=== PATIENT | male | born 1965 | race Caucasian/White ===

== ENCOUNTER 2016-12-08 14:05 | Inpatient (IN) | payer BC ==
[2016-12-08 16:08] VITALS: BMI 25.1
--- NOTE | 2016-12-08 17:05 | HP ---
CIWA Score - CIWA Score Nausea/Vomitin Muscle Tremors: 3 Anxiety: 3 Agitation: 3 Paroxysmal Sweats: 2 Orientation: 0-Oriented Tacttile Disturbances: 2-Mild Itch/Numbness/Burn Auditory Disturbances: 2-Mild Harshness/Frighten Visual Disturbances: 2-Mild Sensitivity Headache: 2-Mild CIWA-Ar Total Score: 22 Admission ROS [facility] - HPI Chief Complaint: I NEED HELP TO STOP DRINKING ALCOHOL,COCAINE,HEROIN DEPENDENCE,MMTP 70 MGS/DAY, LAST MEDICATED TODAY,LAST TREATMENT 10/24 [facility], [place] ALCOHOL RELATED COPD PSORIASIS ARTHRITIS OF BACK ANXIETY,DEPRESSION,INSOMNIA LONGEST PERIOD OF SOBRIETY ONE AND A HALF YEAR Allergies/Adverse Reactions: Allergies Allergy/AdvReac Type Severity Reaction Status Date / Time No Known Allergies Allergy Verified 12/08/16 16:50 History of Present Illness: THIS 51 YEARS OLD MALE WITH ALCOHOL,XANAX DEPENDENCE,HEROIN DEPENDENCE,MMTP 70 MG/DAY FOR DETOX METIONED ABOVE,LAST TREATMENT IN 10/24 [facility] MENTIONED ABOVE - Ebola screening Have you traveled outside of the country in the last 21 days: No Have you had contact with anyone from an Ebola affected area: No Have you been sick,other than usual withdrawal symptoms: No Do you have a fever: No - Review of Systems Constitutional: Chills, Loss of Appetite, Malaise, Night Sweats, Changes in sleep, Weakness, Unintentional Wgt. Loss EENT: reports: Tearing, Nose Congestion Respiratory: reports: Other (COPD) Cardiac: reports: Palpitations GI: reports: Diarrhea, Nausea, Vomiting, Abdominal cramping : reports: No Symptoms Reported Musculoskeletal: reports: Back Pain, Muscle Pain Integumentary: reports: Dryness Neuro: reports: Headache, Tremors Endocrine: reports: No Symptoms Reported Hematology: reports: No Symptoms Reported Psychiatric: reports: Judgement Intact, Mood/Affect Appropiate, Orientated x3 ( INSOMNIA), Anxious, Depressed Patient History - Patient Medical History Hx Anemia: No Hx Asthma: No Hx Chronic Obstructive Pulmonary Disease (COPD): Yes (ON ALBUTEROL INHALER AND SYMBICORT) Hx Cancer: No Hx Cardiac Disorders: No Hx Congestive Heart Failure: No Hx Hypertension: No Hx Hypercholesterolemia: No Hx Pacemaker: No HX Cerebrovascular Accident: No Hx Seizures: No Hx Dementia: No Hx Diabetes: No Hx Gastrointestinal Disorders: No Hx Liver Disease: No Hx Genitourinary Disorders: No Hx Sexually Transmitted Disorders: No Hx Renal Disease (ESRD): No Hx Thyroid Disease: No Hx Human Immunodeficiency Virus (HIV): No (LAST 2016) Hx Hepatitis C: No Hx Depression: Yes (ANXIETY,INSOMNIA) Hx Suicide Attempt: No Hx Bipolar Disorder: No Hx Schizophrenia: No Other Medical History: NO SUICIDAL,NO HOMICIDAL - Patient Surgical History Past Surgical History: No - PPD History Previous Implant?: Yes Documented Results: Positive w/o proof Implanted On Prior [facility] Admission?: No PPD to be Administered?: No - Smoking Cessation Smoking history: Current every day smoker Have you smoked in the past 12 months: Yes Aproximately how many cigarettes per day: 20 Hx Chewing Tobacco Use: No Initiated information on smoking cessation: Yes 'Breaking Loose' booklet given: 12/08/16 - Substance & Tx. History Hx Alcohol Use: Yes Hx Substance Use: Yes Substance Use Type: Alcohol, Heroin, Tranquilizers Hx Substance Use Treatment: Yes (10/24 [facility]) - Substances Abused Alcohol Route: Oral Frequency: Daily Amount used: 1-2 PINTS GAGE 5-6 24 OZ BEERS Age of first use: 15 Date of Last Use: 12/08/16 Alprazolam (Xanax) Route: Oral Frequency: Daily Amount used: 2-4MG Age of first use: 21 Date of Last Use: 12/06/16 Heroin Route: Injection Frequency: 3-6 times per week Amount used: 7-8 BAGS Age of first use: 21 Date of Last Use: 12/07/16 Family Disease History - Family Disease History Family History: Denies Admission Physical Exam [facility] - Vital Signs Vital Signs: Vital Signs - 24 hr 12/08/16 16:05 Temperature 97.8 F Pulse Rate 86 Respiratory 16 Rate Blood Pressure 125/71 - Physical General Appearance: Yes: Moderate Distress, Tremorous, Irritable, Sweating, Anxious HEENTM: Yes: Hearing grossly Normal, Normal ENT Inspection, Normocephalic, [place] , Pharynx Normal Respiratory: Yes: Lungs Clear, Normal Breath Sounds, No Respiratory Distress Neck: Yes: Within Normal Limits, Supple, Trachea in good position Breast: Yes: Within Normal Limits Cardiology: Yes: Within Normal Limits, Regular Rhythm, Regular Rate, S1, S2 Abdominal: Yes: Within Normal Limits, Normal Bowel Sounds, Non Tender, Flat, Soft Genitourinary: Yes: Within Normal Limits Back: Yes: Within Normal Limits, Muscle Spasm Musculoskeletal: Yes: full range of Motion, Back pain, Muscle Pain Extremities: Yes: Within Normal Limits, Normal Range of Motion, Tremors Neurological: Yes: radio communications mechanician II-XII NML intact, Fully Oriented, Alert, Motor Strength 5/5 Integumentary: Yes: Dry Lymphatic: Yes: Within Normal Limits - Diagnostic (1) Alcohol dependence with uncomplicated withdrawal Current Visit: Yes Status: Acute (2) Uncomplicated sedative, hypnotic or anxiolytic withdrawal Current Visit: Yes Status: Acute (3) Opioid dependence Current Visit: Yes Status: Acute (4) Methadone maintenance therapy patient Current Visit: Yes Status: Acute (5) Syncope Current Visit: Yes Status: Acute (6) Anxiety and depression Current Visit: Yes Status: Acute (7) COPD (chronic obstructive pulmonary disease) Current Visit: Yes Status: Acute (8) Psoriasis Current Visit: Yes Status: Acute (9) Weight loss Current Visit: Yes Status: Acute (10) Insomnia Current Visit: Yes Status: Acute Cleared for Admission [facility] - Detox or Rehab [facility] Level of Care: Medically Managed Detox Regimen/Protocol: Valium [facility] Breath Alcohol Content Breath Alcohol Content: 0 Urine Drug Screen - Results Drug Screen Negative: No Urine Drug Screen Results: OPI-Opiates, MET-Methamphetamine, BZO-Benzodiazepines , MTD-Methadone
[2016-12-08] MEDS ORDERED: ACETAMINOPHEN 325 MG TABLET (FP) PO PRN (17:19)
[2016-12-08] MEDS ORDERED: IBUPROFEN 400 MG TABLET (FP) PO PRN (17:19)
[2016-12-08] MEDS ORDERED: guaiFENesin/D-METHORPHAN HB 10 ML UNIT-DOSE CUPS PO PRN (17:19)
[2016-12-08] MEDS ORDERED: LOPERAMIDE HCL 2 MG CAPSULE PO PRN (17:19)
[2016-12-08] MEDS ORDERED: MAGNESIUM HYDROX 2400MG/30ML ORAL SUSPENSION 30 ML CUP PO PRN (17:19)
[2016-12-08] MEDS ORDERED: diphenhydrAMINE HCL 50 MG CAPSULE PO PRN (17:19)
[2016-12-08] MEDS ORDERED: MAG HYDROX/AL HYDROX/SIMETH 30 ML UNIT-DOSE CUP PO PRN (17:19)
[2016-12-08] MEDS ORDERED: diazePAM 5 MG TABLET PO ONE (17:19)
[2016-12-08] MEDS ORDERED: MAGNESIUM CITRATE 300 ML BOTTLE PO PRN (17:19)
[2016-12-08] MEDS ORDERED: P-EPHED 60MG/TRIPROLIDI 2.5MG TABLET PO PRN (17:19)
[2016-12-08] MEDS ORDERED: hydrOXYzine PAMOATE 25 MG CAPSULE (FP) PO PRN (17:19)
[2016-12-08] MEDS ORDERED: MENTHOL/PHENOL 1 EACH UD MM PRN (17:19)
[2016-12-08] MEDS ORDERED: ALBUTEROL SO4 6.7 GM HFA INHALER IH PRN (17:23)
[2016-12-08] MEDS: NICOTINE 21 MG/24 HOURS TOPICAL PATCH TD SCH (18:45)
[2016-12-08] MEDS: BUDESONIDE/FORMETEROL FUMARATE 80/4.5 mcg INHALER IH SCH (22:44)
[2016-12-08] MEDS: THIAMINE HCL 100 MG TABLET (FP) PO SCH (22:44)
[2016-12-08] MEDS: diazePAM 5 MG TABLET PO SCH (22:45)
[2016-12-08] MEDS: FLUOCINONIDE 0.05% CREAM (15 GM TUBE) TP SCH (22:45)
[2016-12-09] MEDS: diazePAM 5 MG TABLET PO SCH ×3 (05:40→22:39)
[2016-12-09] MEDS ORDERED: METHADONE HCL 10 MG TABLET PO ONE (08:43)
[2016-12-09] MEDS ORDERED: METHADONE 40 MG, METHADONE 30 MG PO ONE (09:00)
[2016-12-09] MEDS ORDERED: METHADONE HCL 10 MG TABLET ONE (09:08)
[2016-12-09] MEDS ORDERED: METHADONE HCL 40 MG DISPERSABLE TABLET ONE (09:09)
[2016-12-09] MEDS: diazePAM 5 MG TABLET PO PRN ×2 (09:12→16:54)
[2016-12-09] MEDS: BUDESONIDE/FORMETEROL FUMARATE 80/4.5 mcg INHALER IH SCH ×2 (09:12→22:38)
[2016-12-09] MEDS: PRENATAL VITAMINS W/ FOLIC ACID TABLET (FP) PO SCH (09:12)
--- NOTE | 2016-12-09 09:33 | CONSULT ---
[facility] Psychiatric Consult - Data Date of interview: 12/09/16 Admission source: [facility] Identifying data: First admission to [facility] [place] for this 51 y/o male seeking detox treament on for heroin,xanax,cocaine and alcohol dependence.Patient is single without children,homeless,unemployed and reportedly deprived of any form of financial support. Substance Abuse History: Discussed in detail with the patient in this interview.Mr Dan continues to endorse the findings included in this section of [facility] report : Smoking Cessation. Smoking history: Current every day smoker. Have you smoked in the past 12 months: Yes. Aproximately how many cigarettes per day: 20. Hx Chewing Tobacco Use: No. Initiated information on smoking cessation: Yes. 'Breaking Loose' booklet given: 12/08/16. - Substance & Tx. History. Hx Alcohol Use: Yes. Hx Substance Use: Yes. Substance Use Type: Alcohol, Heroin, Tranquilizers. Hx Substance Use Treatment: Yes (10/24 [facility]). - Substances Abused. Alcohol. Route: Oral. Frequency : Daily. Amount used: 1-2 PINTS GAGE 5-6 24 OZ BEERS. Age of first use: 15. Date of Last Use: 12/08/16. Alprazolam (Xanax). Route: Oral. Frequency: Daily. Amount used: 2-4MG. Age of first use: 21. Date of Last Use: 12/06/16. Heroin. Route: Injection. Frequency: 3-6 times per week. Amount used: 7- 8 BAGS. Age of first use: 21. Date of Last Use: 12/07/16 Medical History: Consistent with COPD,psoriasis and arthritis. Psychiatric History: Patient denies.Mr Dan is currently on methadone maintenance (70 mg/day). Physical/Sexual Abuse/Trauma History: Patient denies. Additional Comment: Urine Drug Screen Results: OPI-Opiates, MET-Methamphetamine , BZO-Benzodiazepines, MTD-Methadone.Noted. Mental Status Exam - Mental Status Exam Alert and Oriented to: Time, Place, Person Cognitive Function: Good Patient Appearance: Unkempt, Disheveled Mood: Hopeful, Euthymic Affect: Appropriate, Normal Range Patient Behavior: Fatigued, Appropriate (friendly), Cooperative Speech Pattern: Clear Voice Loudness: Normal Thought Process: Intact, Goal Oriented Thought Disorder: Not Present Hallucinations: Denies Suicidal Ideation: Denies Homicidal Ideation: Denies Insight/Judgement: Poor Sleep: Poorly, Difficulty falling asleep (requests ambien) Appetite: Good Muscle strength/Tone: Normal Gait/Station: Normal Psychiatric Findings - Problem List ([place] 1, 2,3) (1) Alcohol dependence with uncomplicated withdrawal Current Visit: Yes Status: Acute (2) Uncomplicated sedative, hypnotic or anxiolytic withdrawal Current Visit: Yes Status: Acute (3) Opioid dependence on agonist therapy Current Visit: Yes Status: Acute (4) Nicotine dependence Current Visit: Yes Status: Acute (5) COPD (chronic obstructive pulmonary disease) Current Visit: Yes Status: Chronic (6) Psoriasis Current Visit: Yes Status: Chronic (7) Insomnia Current Visit: Yes Status: Acute - Initial Treatment Plan Initial Treatment Plan: Psychoeducation.Detoxification.Ambien 10 mg po hs.Patient is informed of potential for parasomnias.He agrees with careplan.Observation.
[2016-12-09] MEDS: NICOTINE 21 MG/24 HOURS TOPICAL PATCH TD SCH (10:01)
[2016-12-09 10:34] LABS: MCH 29.2 pg (25.7-33.7); MEAN CELL VOLUME 88.4 fl (80-96); MEAN PLT VOLUME 8.1 fl (7.5-11.1); PLATELET COUNT 162 K/MM3 (134-434); RDW 14.8 % (11.9-15.9); WHITE BLOOD COUNT 5.7 K/mm3 (4.0-10.0)
[2016-12-09] MEDS: FLUOCINONIDE 0.05% CREAM (15 GM TUBE) TP SCH ×2 (10:58→22:39)
--- NOTE | 2016-12-09 11:42 | PN ---
[facility] CIWA - CIWA Score Nausea/Vomitin-No Nausea/No Vomiting Muscle Tremors: 4-Moderate,w/Arms Extend Anxiety: 4-Mod. Anxious/Guarded Agitation: 4-Moderately Restless Paroxysmal Sweats: 1-Minimal Palms Moist Orientation: 0-Oriented Tacttile Disturbances: 3-Moderate Itch/Numb/Burn Auditory Disturbances: 0-None Visual Disturbances: 0-None Headache: 0-None Present CIWA-Ar Total Score: 16 BHS Progress Note (SOAP) Subjective: ANXIETY,SWEATS,TREMORS,INTERMITTENT SLEEP. Objective: 12/09/16 11:41 Vital Signs Temperature 98.0 F 12/09/16 10:14 Pulse Rate 79 12/09/16 10:14 Respiratory Rate 18 12/09/16 10:14 Blood Pressure 114/77 12/09/16 10:14 O2 Sat by Pulse Oximetry (%) Laboratory Last Values WBC 5.7 K/mm3 (4.0-10.0) 12/09/16 06:30 RBC 4.48 M/mm3 (4.00-5.60) 12/09/16 06:30 Hgb 13.1 GM/dL (11.7-16.9) 12/09/16 06:30 Hct 39.6 % (35.4-49) 12/09/16 06:30 MCV 88.4 fl (80-96) 12/09/16 06:30 MCH 29.2 pg (25.7-33.7) 12/09/16 06:30 MCHC 33.0 g/dl (32.0-35.9) 12/09/16 06:30 RDW 14.8 % (11.9-15.9) 12/09/16 06:30 Plt Count 162 K/MM3 (134-434) 12/09/16 06:30 MPV 8.1 fl (7.5-11.1) 12/09/16 06:30 OTHER LABS PENDING Assessment: 12/09/16 11:41 WITHDRAWAL SX Plan: CONTINUE DETOX
[2016-12-09 12:18] LABS: ALBUMIN 3.3 g/dl (3.4-5.0); ALK PHOS 111 U/L (45-117); ANION GAP 10 (8-16); BILIRUBIN,TOTAL 0.5 mg/dL (0.2-1.0); CALCIUM 8.7 mg/dL (8.5-10.1); CO2 28 mmol/L (21-32); CREATININE 0.6 mg/dL (0.7-1.3); GLUCOSE,RANDOM 93 mg/dL (74-106); SGOT/AST 41 U/L (15-37); SGPT/ALT 42 U/L (12-78); TOT PROT 6.4 g/dl (6.4-8.2)
--- NOTE | 2016-12-09 14:18 | EKG ---
Test Reason : Blood Pressure : / mmHG Vent. Rate : 077 BPM Atrial Rate : 077 BPM P-R Int : 150 ms QRS Dur : 100 ms QT Int : 396 ms P-R-T Axes : 069 077 073 degrees QTc Int : 448 ms NORMAL SINUS RHYTHM T WAVE INVERSION IN aVL NO PREVIOUS ECGS AVAILABLE REPEAT EKG IF CLINICALLY INDICATED Confirmed by KELLEY GEE MD ([id number]) on 12/09/2016 2:18:20 PM Referred By: Bernabe Jeronimo Confirmed By:KELLEY GEE MD
[2016-12-09] MEDS: THIAMINE HCL 100 MG TABLET (FP) PO SCH (22:38)
[2016-12-10] MEDS ORDERED: METHADONE HCL 10 MG TABLET ONE (05:46)
[2016-12-10] MEDS ORDERED: METHADONE HCL 40 MG DISPERSABLE TABLET ONE (05:46)
[2016-12-10] MEDS ORDERED: METHADONE HCL 10 MG TABLET PO SCH (06:00)
[2016-12-10] MEDS: diazePAM 5 MG TABLET PO PRN ×3 (06:04→17:09)
[2016-12-10] MEDS: METHADONE 40 MG, METHADONE 30 MG PO SCH (06:04)
[2016-12-10] MEDS: BUDESONIDE/FORMETEROL FUMARATE 80/4.5 mcg INHALER IH SCH ×2 (09:26→22:27)
[2016-12-10] MEDS: FLUOCINONIDE 0.05% CREAM (15 GM TUBE) TP SCH ×2 (09:27→22:27)
[2016-12-10] MEDS: NICOTINE 21 MG/24 HOURS TOPICAL PATCH TD SCH (09:27)
[2016-12-10] MEDS: PRENATAL VITAMINS W/ FOLIC ACID TABLET (FP) PO SCH (09:27)
[2016-12-10] MEDS: diazePAM 5 MG TABLET PO SCH ×2 (09:27→22:27)
--- NOTE | 2016-12-10 11:47 | PN ---
[facility] CIWA - CIWA Score Nausea/Vomitin-No Nausea/No Vomiting Muscle Tremors: 4-Moderate,w/Arms Extend Anxiety: 4-Mod. Anxious/Guarded Agitation: 4-Moderately Restless Paroxysmal Sweats: 1-Minimal Palms Moist Orientation: 0-Oriented Tacttile Disturbances: 3-Moderate Itch/Numb/Burn Auditory Disturbances: 0-None Visual Disturbances: 0-None Headache: 0-None Present CIWA-Ar Total Score: 16 S Progress Note (SOAP) Subjective: ANXIETY,SWEATS,TREMORS. ALERT O X 3. MUCH IMPROVED TODAY. Objective: 12/10/16 11:46 Vital Signs Temperature 98.4 F 12/10/16 09:27 Pulse Rate 83 12/10/16 09:27 Respiratory Rate 18 12/10/16 09:27 Blood Pressure 104/65 12/10/16 09:27 O2 Sat by Pulse Oximetry (%) Laboratory Last Values WBC 5.7 K/mm3 (4.0-10.0) 12/09/16 06:30 RBC 4.48 M/mm3 (4.00-5.60) 12/09/16 06:30 Hgb 13.1 GM/dL (11.7-16.9) 12/09/16 06:30 Hct 39.6 % (35.4-49) 12/09/16 06:30 MCV 88.4 fl (80-96) 12/09/16 06:30 MCH 29.2 pg (25.7-33.7) 12/09/16 06:30 MCHC 33.0 g/dl (32.0-35.9) 12/09/16 06:30 RDW 14.8 % (11.9-15.9) 12/09/16 06:30 Plt Count 162 K/MM3 (134-434) 12/09/16 06:30 MPV 8.1 fl (7.5-11.1) 12/09/16 06:30 Sodium 141 mmol/L (136-145) 12/09/16 06:30 Potassium 3.8 mmol/L (3.5-5.1) 12/09/16 06:30 Chloride 103 mmol/L (98-107) 12/09/16 06:30 Carbon Dioxide 28 mmol/L (21-32) 12/09/16 06:30 Anion Gap 10 (8-16) 12/09/16 06:30 BUN 11 mg/dL (7-18) 12/09/16 06:30 Creatinine 0.6 mg/dL (0.7-1.3) L 12/09/16 06:30 Creat Clearance w eGFR > 60 (>60) 12/09/16 06:30 Random Glucose 93 mg/dL (74-106) 12/09/16 06:30 Calcium 8.7 mg/dL (8.5-10.1) 12/09/16 06:30 Total Bilirubin 0.5 mg/dL (0.2-1.0) 12/09/16 06:30 AST 41 U/L (15-37) H 12/09/16 06:30 ALT 42 U/L (12-78) 12/09/16 06:30 Alkaline Phosphatase 111 U/L (45-117) 12/09/16 06:30 Total Protein 6.4 g/dl (6.4-8.2) 12/09/16 06:30 Albumin 3.3 g/dl (3.4-5.0) L 12/09/16 06:30 RPR Titer Nonreactive (NONREACTIVE) 12/09/16 06:30 Assessment: 12/10/16 11:47 WITHDRAWAL SX Plan: CONTINUE DETOX
[2016-12-10 14:46] LABS: URINE APPEARANCE CLEAR; URINE BILIRUBIN NEGATIVE (NEGATIVE); URINE BLOOD NEGATIVE (NEGATIVE); URINE COLOR STRAW; URINE GLUCOSE (UA) NEGATIVE (NEGATIVE); URINE KETONE NEGATIVE (NEGATIVE); URINE LEUK ESTERASE NEGATIVE (NEGATIVE); URINE NITRITE NEGATIVE (NEGATIVE); URINE PROTEIN NEGATIVE (NEGATIVE); URINE UROBILINOGEN NEGATIVE mg/dL (0.2-1.0)
[2016-12-10] MEDS: ZOLPIDEM TARTRATE 10 MG TABLET (PARK CARE ONLY) PO PRN (22:27)
[2016-12-10] MEDS: THIAMINE HCL 100 MG TABLET (FP) PO SCH (22:27)
[2016-12-11] MEDS ORDERED: METHADONE HCL 10 MG TABLET ONE (05:25)
[2016-12-11] MEDS ORDERED: METHADONE HCL 40 MG DISPERSABLE TABLET ONE (05:26)
[2016-12-11] MEDS: METHADONE 40 MG, METHADONE 30 MG PO SCH (05:50)
[2016-12-11] MEDS: diazePAM 5 MG TABLET PO PRN ×2 (05:50→16:55)
[2016-12-11] MEDS: PRENATAL VITAMINS W/ FOLIC ACID TABLET (FP) PO SCH (10:49)
[2016-12-11] MEDS: BUDESONIDE/FORMETEROL FUMARATE 80/4.5 mcg INHALER IH SCH ×2 (10:50→22:44)
[2016-12-11] MEDS: FLUOCINONIDE 0.05% CREAM (15 GM TUBE) TP SCH ×2 (10:50→22:44)
[2016-12-11] MEDS: diazePAM 5 MG TABLET PO SCH ×2 (10:50→22:44)
[2016-12-11] MEDS: NICOTINE 21 MG/24 HOURS TOPICAL PATCH TD SCH (10:51)
--- NOTE | 2016-12-11 11:03 | PN ---
BHS Progress Note (SOAP) Subjective: DECREASED ANXIETY,SWEATS,TREMORS. Objective: 12/11/16 11:02 Laboratory Last Values WBC 5.7 K/mm3 (4.0-10.0) 12/09/16 06:30 RBC 4.48 M/mm3 (4.00-5.60) 12/09/16 06:30 Hgb 13.1 GM/dL (11.7-16.9) 12/09/16 06:30 Hct 39.6 % (35.4-49) 12/09/16 06:30 MCV 88.4 fl (80-96) 12/09/16 06:30 MCH 29.2 pg (25.7-33.7) 12/09/16 06:30 MCHC 33.0 g/dl (32.0-35.9) 12/09/16 06:30 RDW 14.8 % (11.9-15.9) 12/09/16 06:30 Plt Count 162 K/MM3 (134-434) 12/09/16 06:30 MPV 8.1 fl (7.5-11.1) 12/09/16 06:30 Sodium 141 mmol/L (136-145) 12/09/16 06:30 Potassium 3.8 mmol/L (3.5-5.1) 12/09/16 06:30 Chloride 103 mmol/L (98-107) 12/09/16 06:30 Carbon Dioxide 28 mmol/L (21-32) 12/09/16 06:30 Anion Gap 10 (8-16) 12/09/16 06:30 BUN 11 mg/dL (7-18) 12/09/16 06:30 Creatinine 0.6 mg/dL (0.7-1.3) L 12/09/16 06:30 Creat Clearance w eGFR > 60 (>60) 12/09/16 06:30 Random Glucose 93 mg/dL (74-106) 12/09/16 06:30 Calcium 8.7 mg/dL (8.5-10.1) 12/09/16 06:30 Total Bilirubin 0.5 mg/dL (0.2-1.0) 12/09/16 06:30 AST 41 U/L (15-37) H 12/09/16 06:30 ALT 42 U/L (12-78) 12/09/16 06:30 Alkaline Phosphatase 111 U/L (45-117) 12/09/16 06:30 Total Protein 6.4 g/dl (6.4-8.2) 12/09/16 06:30 Albumin 3.3 g/dl (3.4-5.0) L 12/09/16 06:30 Urine Color Straw 12/10/16 09:40 Urine Appearance Clear 12/10/16 09:40 Urine pH 8.0 (5.0-8.0) 12/10/16 09:40 Ur Specific [place] 1.015 (1.005-1.025) 12/10/16 09:40 Urine Protein Negative (NEGATIVE) 12/10/16 09:40 Urine Glucose (UA) Negative (NEGATIVE) 12/10/16 09:40 Urine Ketones Negative (NEGATIVE) 12/10/16 09:40 Urine Blood Negative (NEGATIVE) 12/10/16 09:40 Urine Nitrite Negative (NEGATIVE) 12/10/16 09:40 Urine Bilirubin Negative (NEGATIVE) 12/10/16 09:40 Urine Urobilinogen Negative mg/dL (0.2-1.0) 12/10/16 09:40 Ur Leukocyte Esterase Negative (NEGATIVE) 12/10/16 09:40 RPR Titer Nonreactive (NONREACTIVE) 12/09/16 06:30 Assessment: 12/11/16 11:02 WITHDRAWAL SX Plan: CONTINUE DETOX
[2016-12-11] MEDS: THIAMINE HCL 100 MG TABLET (FP) PO SCH (22:44)
[2016-12-11] MEDS: ZOLPIDEM TARTRATE 10 MG TABLET (PARK CARE ONLY) PO PRN (22:45)
[2016-12-12] MEDS ORDERED: METHADONE HCL 10 MG TABLET ONE (03:58)
[2016-12-12] MEDS ORDERED: METHADONE HCL 40 MG DISPERSABLE TABLET ONE (03:59)
[2016-12-12] MEDS: METHADONE 40 MG, METHADONE 30 MG PO SCH (05:27)
[2016-12-12 09:55] VITALS: BP 98/70; PULSE 80; TEMP 96.9
[2016-12-12] MEDS ORDERED: diazePAM 5 MG TABLET PO SCH (10:00)
[2016-12-12] MEDS: NICOTINE 21 MG/24 HOURS TOPICAL PATCH TD SCH (10:31)
[2016-12-12] MEDS: FLUOCINONIDE 0.05% CREAM (15 GM TUBE) TP SCH (10:31)
[2016-12-12] MEDS: BUDESONIDE/FORMETEROL FUMARATE 80/4.5 mcg INHALER IH SCH (10:31)
[2016-12-12] MEDS: PRENATAL VITAMINS W/ FOLIC ACID TABLET (FP) PO SCH (10:33)
--- NOTE | 2016-12-12 12:39 | DS ---
[facility] Detox Discharge Summary Admission Date: 12/08/16 Discharge Date: 12/12/16 - History Present History: Alcohol Dependence Additional Comments: DETOX COMPLETED. ALERT O X 3. NAD. INSTRUCTED TO FOLLOW UP WITH HIS PCP AT [facility] FOR MEDICAL MANAGEMENT OF COMORBID CONDITIONS. Pertinent Past History: COPD PSORIASIS - Physical Exam Results Vital Signs: Vital Signs Temperature 96.9 F L 12/12/16 09:54 Pulse Rate 80 12/12/16 09:54 Respiratory Rate 18 12/12/16 09:54 Blood Pressure 98/70 12/12/16 09:54 O2 Sat by Pulse Oximetry (%) Pertinent Admission Physical Exam Findings: WITHDRAWAL SX Laboratory Last Values WBC 5.7 K/mm3 (4.0-10.0) 12/09/16 06:30 RBC 4.48 M/mm3 (4.00-5.60) 12/09/16 06:30 Hgb 13.1 GM/dL (11.7-16.9) 12/09/16 06:30 Hct 39.6 % (35.4-49) 12/09/16 06:30 MCV 88.4 fl (80-96) 12/09/16 06:30 MCH 29.2 pg (25.7-33.7) 12/09/16 06:30 MCHC 33.0 g/dl (32.0-35.9) 12/09/16 06:30 RDW 14.8 % (11.9-15.9) 12/09/16 06:30 Plt Count 162 K/MM3 (134-434) 12/09/16 06:30 MPV 8.1 fl (7.5-11.1) 12/09/16 06:30 Sodium 141 mmol/L (136-145) 12/09/16 06:30 Potassium 3.8 mmol/L (3.5-5.1) 12/09/16 06:30 Chloride 103 mmol/L (98-107) 12/09/16 06:30 Carbon Dioxide 28 mmol/L (21-32) 12/09/16 06:30 Anion Gap 10 (8-16) 12/09/16 06:30 BUN 11 mg/dL (7-18) 12/09/16 06:30 Creatinine 0.6 mg/dL (0.7-1.3) L 12/09/16 06:30 Creat Clearance w eGFR > 60 (>60) 12/09/16 06:30 Random Glucose 93 mg/dL (74-106) 12/09/16 06:30 Calcium 8.7 mg/dL (8.5-10.1) 12/09/16 06:30 Total Bilirubin 0.5 mg/dL (0.2-1.0) 12/09/16 06:30 AST 41 U/L (15-37) H 12/09/16 06:30 ALT 42 U/L (12-78) 12/09/16 06:30 Alkaline Phosphatase 111 U/L (45-117) 12/09/16 06:30 Total Protein 6.4 g/dl (6.4-8.2) 12/09/16 06:30 Albumin 3.3 g/dl (3.4-5.0) L 12/09/16 06:30 Urine Color Straw 12/10/16 09:40 Urine Appearance Clear 12/10/16 09:40 Urine pH 8.0 (5.0-8.0) 12/10/16 09:40 Ur Specific [place] 1.015 (1.005-1.025) 12/10/16 09:40 Urine Protein Negative (NEGATIVE) 12/10/16 09:40 Urine Glucose (UA) Negative (NEGATIVE) 12/10/16 09:40 Urine Ketones Negative (NEGATIVE) 12/10/16 09:40 Urine Blood Negative (NEGATIVE) 12/10/16 09:40 Urine Nitrite Negative (NEGATIVE) 12/10/16 09:40 Urine Bilirubin Negative (NEGATIVE) 12/10/16 09:40 Urine Urobilinogen Negative mg/dL (0.2-1.0) 12/10/16 09:40 Ur Leukocyte Esterase Negative (NEGATIVE) 12/10/16 09:40 RPR Titer Nonreactive (NONREACTIVE) 12/09/16 06:30 - Treatment Hospital Course: Detox Protocol Followed, Detoxed Safely, Responded well, Discharged Condition Good, Rehab Referral Accepted Patient has Accepted a Rehab Referral to: [facility] - Medication Discharge Medications: Ambulatory Orders Albuterol Sulfate Inhaler - [Ventolin Hfa Inhaler -] 2 inh PO Q4H PRN 12/08/16 Budesonide/Formeterol Fumarate [SYMBICORT 80/4.5mcg -] 1 inh PO BID 12/08/16 - Diagnosis (1) Alcohol dependence with uncomplicated withdrawal Current Visit: Yes Status: Acute (2) Methadone maintenance therapy patient Current Visit: Yes Status: Chronic (3) Nicotine dependence Current Visit: Yes Status: Acute Qualifiers: Nicotine product type: cigarettes Substance use status: in withdrawal Qualified Code(s): F17.213 - Nicotine dependence, cigarettes, with withdrawal (4) COPD (chronic obstructive pulmonary disease) Current Visit: Yes Status: Chronic (5) Psoriasis Current Visit: Yes Status: Chronic (6) Uncomplicated sedative, hypnotic or anxiolytic withdrawal Current Visit: Yes Status: Acute (7) Weight loss Current Visit: Yes Status: Acute
== END 2016-12-12 12:20 | disposition home or self-care (01) | DRG 773 ==
LOC: YASAS 14:05 → Y3N 17:06
PROVIDERS: ADMIT Internal Medicine; ATTEND Internal Medicine
PROC: HZ2ZZZZ Detoxification Services for Substance Abuse Treatment (ICD-10-PCS; principal; 2016-12-08)
DX: F10.230 Alcohol dependence with withdrawal, uncomplicated (principal); F13.230 Sedative, hypnotic or anxiolytic dependence with withdrawal, uncomplicated; F11.20 Opioid dependence, uncomplicated; F17.213 Nicotine dependence, cigarettes, with withdrawal; F41.8 Other specified anxiety disorders; J44.9 Chronic obstructive pulmonary disease, unspecified; L40.9 Psoriasis, unspecified; G47.00 Insomnia, unspecified; Z87.898 Personal history of other specified conditions
CPT/HCPCS: 36415; 71010-TC; 80053; 81003; 85027; 86593; 93005; 93010

== ENCOUNTER 2017-02-12 12:27 | Inpatient (IN) | payer BC ==
[2017-02-12 14:08] VITALS: BMI 21.4
--- NOTE | 2017-02-12 16:42 | HP ---
CIWA Score - CIWA Score Nausea/Vomitin-Int. Nausea w/Dry Heave Muscle Tremors: 4-Moderate,w/Arms Extend Anxiety: 4-Mod. Anxious/Guarded Agitation: 4-Moderately Restless Paroxysmal Sweats: 3 Orientation: 0-Oriented Tacttile Disturbances: 0-None Auditory Disturbances: 0-None Visual Disturbances: 0-None Headache: 3-Moderate CIWA-Ar Total Score: 22 Admission ROS S - HPI Chief Complaint: ALCOHOL AND XANAX WITHDRAWAL SX Allergies/Adverse Reactions: Allergies Allergy/AdvReac Type Severity Reaction Status Date / Time No Known Allergies Allergy Verified 02/12/17 15:23 History of Present Illness: 52 YO M WITH /O CHRONIC ALCOHOLISM AND XANAX DEPENDENCE, on MMYTP 80mg dialy, LDM today, Hep c treated and cleare, nicotine dependence <10/day, no psychhistory no suicide attempts in past no suicidal ideation. wants to detox today after referral by MMTP not on any medications. no h/o seizures no dts. last drink and xanax yesterday Exam Limitations: No Limitations - Ebola screening Have you traveled outside of the country in the last 21 days: No Have you had contact with anyone from an Ebola affected area: No Have you been sick,other than usual withdrawal symptoms: No Do you have a fever: No - Review of Systems Constitutional: Chills, Diaphoresis, Night Sweats, Unintentional Wgt. Loss EENT: reports: No Symptoms Reported Respiratory: reports: No Symptoms reported Cardiac: reports: No Symptoms Reported GI: reports: Constipated, Nausea, Poor Appetite, Poor Fluid Intake, Vomiting, Indigestion, Abdominal cramping : reports: No Symptoms Reported Musculoskeletal: reports: Muscle Pain, Muscle Weakness Integumentary: reports: Flushing, Sweating Neuro: reports: Headache, Numbness, Paresthesia, Tingling, Tremors, Weakness Endocrine: reports: No Symptoms Reported Hematology: reports: No Symptoms Reported Psychiatric: reports: Judgement Intact, Mood/Affect Appropiate, Orientated x3, Agitated, Anxious, Depressed Other Systems: Reviewed and Negative Patient History - Patient Medical History Hx Anemia: No Hx Asthma: No Hx Chronic Obstructive Pulmonary Disease (COPD): Yes Hx Cancer: No Hx Cardiac Disorders: No Hx Congestive Heart Failure: No Hx Hypertension: No Hx Hypercholesterolemia: No Hx Pacemaker: No HX Cerebrovascular Accident: No Hx Seizures: No Hx Dementia: No Hx Diabetes: No Hx Gastrointestinal Disorders: No Hx Liver Disease: No Hx Genitourinary Disorders: No Hx Sexually Transmitted Disorders: No Hx Renal Disease (ESRD): No Hx Thyroid Disease: No Hx Human Immunodeficiency Virus (HIV): No (LAST 2016) Hx Hepatitis C: No Hx Depression: No Hx Suicide Attempt: No Hx Bipolar Disorder: No Hx Schizophrenia: No - Patient Surgical History Past Surgical History: No Hx Neurologic Surgery: No Hx Cataract Extraction: No Hx Cardiac Surgery: No Hx Lung Surgery: No Hx Breast Surgery: No Hx Breast Biopsy: No Hx Abdominal Surgery: Yes (R inguinal hernia.) Hx Appendectomy: No Hx Cholecystectomy: No Hx Genitourinary Surgery: No Hx Section: No Hx Orthopedic Surgery: No Hx Hysterectomy: No Anesthesia Reaction: No - PPD History Previous Implant?: Yes Documented Results: Positive w/proof Implanted On Prior R Admission?: Yes PPD to be Administered?: No - Reproductive History Patient is a Female of Child Bearing Age (11 -55 yrs old): No Patient : No - Smoking Cessation Smoking history: Current every day smoker Have you smoked in the past 12 months: Yes Aproximately how many cigarettes per day: 10 Hx Chewing Tobacco Use: No Initiated information on smoking cessation: Yes 'Breaking Loose' booklet given: 02/12/17 - Substance & Tx. History Hx Alcohol Use: Yes Hx Substance Use: Yes Substance Use Type: Alcohol, Opiates, Tranquilizers Hx Substance Use Treatment: Yes - Substances Abused Alcohol Route: Oral Frequency: Daily Amount used: [id number] 24oz cans)[id number] pint Age of first use: 15 Date of Last Use: 02/12/17 Alprazolam (Xanax) Route: Oral Frequency: Daily Amount used: 2-3 stiks Age of first use: 50 Date of Last Use: 02/10/17 Family Disease History - Family Disease History Family History: Denies Admission Physical Exam BHS - Vital Signs Vital Signs: Vital Signs - 24 hr 02/12/17 14:06 Temperature 97.3 F L Pulse Rate 92 H Respiratory 18 Rate Blood Pressure 136/78 - Physical General Appearance: Yes: Nourished, Disheveled, Moderate Distress, Thin, Tremorous, Irritable, Sweating, Anxious HEENTM: Yes: Within Normal Limits, EOMI, Hearing grossly Normal, Normal ENT Inspection, Normocephalic, Normal Voice, [place], Pharynx Normal Respiratory: Yes: Within Normal Limits, Chest Non-Tender, Lungs Clear, Normal Breath Sounds, No Respiratory Distress, No Accessory Muscle Use Neck: Yes: Within Normal Limits, No masses,lesions,Nodules, Supple, Trachea in good position Breast: Yes: Breast Exam Deferred Cardiology: Yes: Regular Rhythm, Regular Rate, S1, S2 Abdominal: Yes: Normal Bowel Sounds, Non Tender, Flat, Soft Genitourinary: Yes: Within Normal Limits Back: Yes: Normal Inspection, Muscle Spasm Musculoskeletal: Yes: Within Normal Limits, full range of Motion, Gait Steady Extremities: Yes: Normal Capillary Refill, Normal Range of Motion, Non-Tender, Tremors Neurological: Yes: rehabilitation technician II-XII NML intact, Fully Oriented, Alert, Motor Strength 5/5, Normal Response, Depressed Affect Integumentary: Yes: Normal Color, Warm, Diaphoresis, Track Co[place] (on arms old no infection or abscess noted) Lymphatic: Yes: Within Normal Limits - Addiitonal Findings: withdrawall sx - Diagnostic (1) Alcohol dependence with uncomplicated withdrawal Current Visit: Yes Status: Acute (2) Anxiety and depression Current Visit: Yes Status: Acute (3) Insomnia Current Visit: Yes Status: Acute (4) Nicotine dependence Current Visit: Yes Status: Acute Qualifiers: Nicotine product type: cigarettes Substance use status: in withdrawal Qualified Code(s): F17.213 - Nicotine dependence, cigarettes, with withdrawal; F17.213 - Nicotine dependence, cigarettes, with withdrawal (5) Opioid dependence on agonist therapy Current Visit: No Status: Acute (6) Syncope Current Visit: No Status: Acute (7) Uncomplicated sedative, hypnotic or anxiolytic withdrawal Current Visit: No Status: Acute (8) Weight loss Current Visit: Yes Status: Acute (9) COPD (chronic obstructive pulmonary disease) Current Visit: Yes Status: Chronic (10) Methadone maintenance therapy patient Current Visit: Yes Status: Chronic (11) Psoriasis Current Visit: Yes Status: Chronic Cleared for Admission S - Detox or Rehab [facility] Level of Care: Medically Managed Detox Regimen/Protocol: Valium [facility] Breath Alcohol Content Breath Alcohol Content: 0.053 Urine Drug Screen - Results Drug Screen Negative: No Urine Drug Screen Results: BZO-Benzodiazepines, MTD-Methadone
[2017-02-12] MEDS ORDERED: MAGNESIUM CITRATE 300 ML BOTTLE PO PRN (16:43)
[2017-02-12] MEDS ORDERED: hydrOXYzine PAMOATE 50 MG CAPSULE (FP) PO PRN (16:43)
[2017-02-12] MEDS ORDERED: LOPERAMIDE HCL 2 MG CAPSULE PO PRN (16:43)
[2017-02-12] MEDS ORDERED: NICOTINE POLACRILEX 2 MG GUM BUC PRN (16:43)
[2017-02-12] MEDS ORDERED: P-EPHED 60MG/TRIPROLIDI 2.5MG TABLET PO PRN (16:43)
[2017-02-12] MEDS ORDERED: MENTHOL/PHENOL 1 EACH UD MM PRN (16:43)
[2017-02-12] MEDS ORDERED: MAGNESIUM HYDROX 2400MG/30ML ORAL SUSPENSION 30 ML CUP PO PRN (16:43)
[2017-02-12] MEDS ORDERED: IBUPROFEN 400 MG TABLET (FP) PO PRN (16:43)
[2017-02-12] MEDS ORDERED: MAG HYDROX/AL HYDROX/SIMETH 30 ML UNIT-DOSE CUP PO PRN (16:43)
[2017-02-12] MEDS ORDERED: guaiFENesin/D-METHORPHAN HB 10 ML UNIT-DOSE CUPS PO PRN (16:43)
[2017-02-12] MEDS ORDERED: ACETAMINOPHEN 325 MG TABLET (FP) PO PRN (16:43)
[2017-02-12] MEDS ORDERED: ALBUTEROL SO4 18 GM HFA INHALER IH PRN (16:45)
[2017-02-12] MEDS ORDERED: chlordiazePOXIDE HCL 25 MG CAPSULE PO ONE (17:45)
[2017-02-12] MEDS: NICOTINE 14 MG/24 HOURS TOPICAL PATCH TD SCH (18:02)
[2017-02-12] MEDS: BETAMETHASONE DIP 0.05% TP LOTION 30 ML BOTTLE TP SCH (18:22)
[2017-02-12] MEDS ORDERED: diphenhydrAMINE HCL 50 MG CAPSULE PO PRN (22:00)
[2017-02-12 22:17] LABS: URINE APPEARANCE CLEAR; URINE BILIRUBIN NEGATIVE (NEGATIVE); URINE BLOOD NEGATIVE (NEGATIVE); URINE COLOR YELLOW; URINE GLUCOSE (UA) NEGATIVE (NEGATIVE); URINE KETONE NEGATIVE (NEGATIVE); URINE NITRITE NEGATIVE (NEGATIVE); URINE PROTEIN NEGATIVE (NEGATIVE); URINE UROBILINOGEN NEGATIVE mg/dL (0.2-1.0)
[2017-02-12] MEDS: ZOLPIDEM TARTRATE 10 MG TABLET (PARK CARE ONLY) PO PRN (22:23)
[2017-02-12] MEDS: BUDESONIDE/FORMETEROL FUMARATE 80/4.5 mcg INHALER IH SCH (22:23)
[2017-02-12] MEDS: chlordiazePOXIDE HCL 25 MG CAPSULE PO SCH (22:23)
[2017-02-12] MEDS: THIAMINE HCL 100 MG TABLET (FP) PO SCH (22:23)
[2017-02-12] MEDS: CLOTRIMAZOLE/BETAMET DIPROP 15 GM TUBE TP SCH (22:23)
[2017-02-12 22:57] LABS: URINE LEUK ESTERASE Negative (NEGATIVE)
[2017-02-13] MEDS: chlordiazePOXIDE HCL 25 MG CAPSULE PO SCH ×4 (05:24→22:03)
[2017-02-13] MEDS: chlordiazePOXIDE HCL 25 MG CAPSULE PO PRN ×3 (07:39→18:39)
[2017-02-13 09:50] LABS: MCH 28.9 pg (25.7-33.7); MCHC 32.1 g/dl (32.0-35.9); MEAN CELL VOLUME 89.8 fl (80-96); MEAN PLT VOLUME 7.8 fl (7.5-11.1); PLATELET COUNT 246 K/MM3 (134-434); RDW 16.9 % (11.9-15.9); WHITE BLOOD COUNT 6.9 K/mm3 (4.0-10.0)
--- NOTE | 2017-02-13 09:51 | EKG ---
Test Reason : Blood Pressure : / mmHG Vent. Rate : 083 BPM Atrial Rate : 083 BPM P-R Int : 144 ms QRS Dur : 098 ms QT Int : 392 ms P-R-T Axes : 068 067 058 degrees QTc Int : 460 ms NORMAL SINUS RHYTHM NORMAL ECG WHEN COMPARED WITH ECG OF 08-DEC-2016 17:52, NO SIGNIFICANT CHANGE WAS FOUND Confirmed by TAIWO CAMARGO MD ([id number]) on 02/13/2017 9:51:09 AM Referred By: Confirmed By:TAIWO CAMARGO MD
[2017-02-13] MEDS ORDERED: METHADONE HCL 40 MG DISPERSABLE TABLET PO ONE (10:03)
[2017-02-13 10:11] LABS: ALBUMIN 3.6 g/dl (3.4-5.0); ALK PHOS 179 U/L (45-117); ANION GAP 7 (8-16); BILIRUBIN,TOTAL 0.3 mg/dL (0.2-1.0); CALCIUM 8.9 mg/dL (8.5-10.1); CO2 29 mmol/L (21-32); CREATININE 0.6 mg/dL (0.7-1.3); GLUCOSE,RANDOM 89 mg/dL (74-106); SGOT/AST 30 U/L (15-37); SGPT/ALT 28 U/L (12-78); TOT PROT 7.7 g/dl (6.4-8.2)
[2017-02-13] MEDS ORDERED: ONDANSETRON *ODT* 4 MG TABLET SL PRN (10:22)
[2017-02-13] MEDS: CLOTRIMAZOLE/BETAMET DIPROP 15 GM TUBE TP SCH ×2 (10:38→22:03)
[2017-02-13] MEDS: BETAMETHASONE DIP 0.05% TP LOTION 30 ML BOTTLE TP SCH (10:38)
[2017-02-13] MEDS: NICOTINE 14 MG/24 HOURS TOPICAL PATCH TD SCH (10:38)
[2017-02-13] MEDS: BUDESONIDE/FORMETEROL FUMARATE 80/4.5 mcg INHALER IH SCH ×2 (10:38→22:02)
[2017-02-13] MEDS: PRENATAL VITAMINS W/ FOLIC ACID TABLET (FP) PO SCH (10:38)
--- NOTE | 2017-02-13 12:31 | PN ---
[facility] CIWA - CIWA Score Nausea/Vomitin-No Nausea/No Vomiting Muscle Tremors: 4-Moderate,w/Arms Extend Anxiety: 4-Mod. Anxious/Guarded Agitation: 4-Moderately Restless Paroxysmal Sweats: 1-Minimal Palms Moist Orientation: 0-Oriented Tacttile Disturbances: 3-Moderate Itch/Numb/Burn Auditory Disturbances: 0-None Visual Disturbances: 0-None Headache: 0-None Present CIWA-Ar Total Score: 16 BHS Progress Note (SOAP) Subjective: ANXIETY,TREMORS,SWEATS,IRRITABILITY, NAUSEA. Objective: 02/13/17 12:30 Vital Signs Temperature 97.8 F 02/13/17 09:57 Pulse Rate 83 02/13/17 09:57 Respiratory Rate 18 02/13/17 09:57 Blood Pressure 124/79 02/13/17 09:57 O2 Sat by Pulse Oximetry (%) Laboratory Last Values WBC 6.9 K/mm3 (4.0-10.0) 02/13/17 06:00 RBC 4.55 M/mm3 (4.00-5.60) 02/13/17 06:00 Hgb 13.1 GM/dL (11.7-16.9) 02/13/17 06:00 Hct 40.9 % (35.4-49) 02/13/17 06:00 MCV 89.8 fl (80-96) 02/13/17 06:00 MCH 28.9 pg (25.7-33.7) 02/13/17 06:00 MCHC 32.1 g/dl (32.0-35.9) 02/13/17 06:00 RDW 16.9 % (11.9-15.9) H D 02/13/17 06:00 Plt Count 246 K/MM3 (134-434) D 02/13/17 06:00 MPV 7.8 fl (7.5-11.1) 02/13/17 06:00 Sodium 137 mmol/L (136-145) 02/13/17 06:00 Potassium 4.1 mmol/L (3.5-5.1) 02/13/17 06:00 Chloride 101 mmol/L (98-107) 02/13/17 06:00 Carbon Dioxide 29 mmol/L (21-32) 02/13/17 06:00 Anion Gap 7 (8-16) L 02/13/17 06:00 BUN 6 mg/dL (7-18) L D 02/13/17 06:00 Creatinine 0.6 mg/dL (0.7-1.3) L 02/13/17 06:00 Creat Clearance w eGFR > 60 (>60) 02/13/17 06:00 Random Glucose 89 mg/dL (74-106) 02/13/17 06:00 Calcium 8.9 mg/dL (8.5-10.1) 02/13/17 06:00 Total Bilirubin 0.3 mg/dL (0.2-1.0) D 02/13/17 06:00 AST 30 U/L (15-37) D 02/13/17 06:00 ALT 28 U/L (12-78) D 02/13/17 06:00 Alkaline Phosphatase 179 U/L (45-117) H D 02/13/17 06:00 Total Protein 7.7 g/dl (6.4-8.2) D 02/13/17 06:00 Albumin 3.6 g/dl (3.4-5.0) 02/13/17 06:00 Urine Color Yellow 02/12/17 21:30 Urine Appearance Clear 02/12/17 21:30 Urine pH 7.0 (5.0-8.0) 02/12/17 21:30 Ur Specific [place] 1.015 (1.005-1.025) 02/12/17 21:30 Urine Protein Negative (NEGATIVE) 02/12/17 21:30 Urine Glucose (UA) Negative (NEGATIVE) 02/12/17 21:30 Urine Ketones Negative (NEGATIVE) 02/12/17 21:30 Urine Blood Negative (NEGATIVE) 02/12/17 21:30 Urine Nitrite Negative (NEGATIVE) 02/12/17 21:30 Urine Bilirubin Negative (NEGATIVE) 02/12/17 21:30 Urine Urobilinogen Negative mg/dL (0.2-1.0) 02/12/17 21:30 Ur Leukocyte Esterase Negative (NEGATIVE) 02/12/17 21:30 Assessment: 02/13/17 12:30 WITHDRAWAL SX Plan: CONTINUE DETOX
[2017-02-13] MEDS: ZOLPIDEM TARTRATE 10 MG TABLET (PARK CARE ONLY) PO PRN (22:03)
[2017-02-13] MEDS: THIAMINE HCL 100 MG TABLET (FP) PO SCH (22:03)
[2017-02-14] MEDS: chlordiazePOXIDE HCL 25 MG CAPSULE PO PRN ×3 (01:48→12:54)
[2017-02-14] MEDS: chlordiazePOXIDE HCL 25 MG CAPSULE PO SCH ×3 (05:49→17:45)
[2017-02-14] MEDS: METHADONE HCL 40 MG DISPERSABLE TABLET PO SCH (05:49)
[2017-02-14] MEDS: BUDESONIDE/FORMETEROL FUMARATE 80/4.5 mcg INHALER IH SCH ×2 (10:53→22:44)
[2017-02-14] MEDS: NICOTINE 14 MG/24 HOURS TOPICAL PATCH TD SCH (10:54)
[2017-02-14] MEDS: PRENATAL VITAMINS W/ FOLIC ACID TABLET (FP) PO SCH (10:54)
[2017-02-14] MEDS: CLOTRIMAZOLE/BETAMET DIPROP 15 GM TUBE TP SCH ×2 (10:55→22:46)
[2017-02-14] MEDS: BETAMETHASONE DIP 0.05% TP LOTION 30 ML BOTTLE TP SCH (10:55)
--- NOTE | 2017-02-14 13:37 | PN ---
[facility] CIWA - CIWA Score Nausea/Vomitin-Mild Nausea/No Vomiting Muscle Tremors: 4-Moderate,w/Arms Extend Anxiety: 3 Agitation: 2 Paroxysmal Sweats: 3 Orientation: 0-Oriented Tacttile Disturbances: 2-Mild Itch/Numbness/Burn Auditory Disturbances: 0-None Visual Disturbances: 2-Mild Sensitivity Headache: 0-None Present CIWA-Ar Total Score: 17 BHS Progress Note (SOAP) Subjective: Sweating, Tremors, Interrupted sleep, Body Aches, Stomach Cramping. Pt. reporting "light green colored stool X approx. 1 week. Pt. denies any recent change in bowel movement frequency, medication use, or food / liquid intake. Patient denies seeing blood in toilet or on toilet paper after bowel movements. Objective: PT. A & O X 3, OBSERVED AMBULATING ON UNIT. NO ACUTE DISTRESS. 02/14/17 13:44 Vital Signs Temperature 98.2 F 02/14/17 10:05 Pulse Rate 80 02/14/17 10:05 Respiratory Rate 18 02/14/17 10:05 Blood Pressure 99/66 02/14/17 10:05 O2 Sat by Pulse Oximetry (%) Laboratory Tests 02/12/17 02/13/17 02/13/17 21:30 06:00 06:00 WBC 6.9 RBC 4.55 Hgb 13.1 Hct 40.9 MCV 89.8 MCH 28.9 MCHC 32.1 RDW 16.9 H D Plt Count 246 D MPV 7.8 Sodium 137 Potassium 4.1 Chloride 101 Carbon Dioxide 29 Anion Gap 7 L BUN 6 L D Creatinine 0.6 L Creat Clearance w eGFR > 60 Random Glucose 89 Calcium 8.9 Total Bilirubin 0.3 D AST 30 D ALT 28 D Alkaline Phosphatase 179 H D Total Protein 7.7 D Albumin 3.6 Urine Color Yellow Urine Appearance Clear Urine pH 7.0 Ur Specific [place] 1.015 Urine Protein Negative Urine Glucose (UA) Negative Urine Ketones Negative Urine Blood Negative Urine Nitrite Negative Urine Bilirubin Negative Urine Urobilinogen Negative Ur Leukocyte Esterase Negative RPR Titer 02/13/17 06:00 WBC RBC Hgb Hct MCV MCH MCHC RDW Plt Count MPV Sodium Potassium Chloride Carbon Dioxide Anion Gap BUN Creatinine Creat Clearance w eGFR Random Glucose Calcium Total Bilirubin AST ALT Alkaline Phosphatase Total Protein Albumin Urine Color Urine Appearance Urine pH Ur Specific [place] Urine Protein Urine Glucose (UA) Urine Ketones Urine Blood Urine Nitrite Urine Bilirubin Urine Urobilinogen Ur Leukocyte Esterase RPR Titer Nonreactive LABS NOTED. 02/14/17 13:48 02/14/17 14:48 Assessment: 02/14/17 13:45 WITHDRAWAL SYMPTOMS. Plan: CONTINUE DETOX. STOOL CULTURE AND O & P AND STOOL FOR OCCULT BLOOD. INCREASE DAILY PO FLUID INTAKE. ADVISED PATIENT TO FOLLOW-UP AT [facility] AFTER DISCHARGE FROM DETOX FOR MEDICAL ASSESSMENT AND FOR STOOL DISCOLORATION.
[2017-02-14] MEDS: chlordiazePOXIDE 5 MG CAPSULE PO SCH (22:44)
[2017-02-14] MEDS: ZOLPIDEM TARTRATE 10 MG TABLET (PARK CARE ONLY) PO PRN (22:44)
[2017-02-14] MEDS: THIAMINE HCL 100 MG TABLET (FP) PO SCH (22:44)
[2017-02-15] MEDS: METHADONE HCL 40 MG DISPERSABLE TABLET PO SCH (05:42)
[2017-02-15] MEDS: chlordiazePOXIDE 5 MG CAPSULE PO SCH ×3 (05:42→17:14)
[2017-02-15] MEDS: NICOTINE 14 MG/24 HOURS TOPICAL PATCH TD SCH (10:30)
[2017-02-15] MEDS: CLOTRIMAZOLE/BETAMET DIPROP 15 GM TUBE TP SCH ×2 (10:30→22:47)
[2017-02-15] MEDS: BUDESONIDE/FORMETEROL FUMARATE 80/4.5 mcg INHALER IH SCH ×2 (10:30→22:48)
[2017-02-15] MEDS: BETAMETHASONE DIP 0.05% TP LOTION 30 ML BOTTLE TP SCH (10:30)
[2017-02-15] MEDS: PRENATAL VITAMINS W/ FOLIC ACID TABLET (FP) PO SCH (10:30)
[2017-02-15] MEDS: chlordiazePOXIDE HCL 25 MG CAPSULE PO PRN (12:01)
--- NOTE | 2017-02-15 18:01 | PN ---
BHS Progress Note (SOAP) Subjective: Sweating,interrupted sleep,restless. Objective: 02/15/17 18:00 Vital Signs - 8 hr 02/15/17 02/15/17 13:26 17:42 Temperature 97.0 F L 97 F L Pulse Rate 87 106 H Respiratory 18 18 Rate Blood Pressure 154/91 113/58 Laboratory Last Values WBC 6.9 K/mm3 (4.0-10.0) 02/13/17 06:00 RBC 4.55 M/mm3 (4.00-5.60) 02/13/17 06:00 Hgb 13.1 GM/dL (11.7-16.9) 02/13/17 06:00 Hct 40.9 % (35.4-49) 02/13/17 06:00 MCV 89.8 fl (80-96) 02/13/17 06:00 MCH 28.9 pg (25.7-33.7) 02/13/17 06:00 MCHC 32.1 g/dl (32.0-35.9) 02/13/17 06:00 RDW 16.9 % (11.9-15.9) H D 02/13/17 06:00 Plt Count 246 K/MM3 (134-434) D 02/13/17 06:00 MPV 7.8 fl (7.5-11.1) 02/13/17 06:00 Sodium 137 mmol/L (136-145) 02/13/17 06:00 Potassium 4.1 mmol/L (3.5-5.1) 02/13/17 06:00 Chloride 101 mmol/L (98-107) 02/13/17 06:00 Carbon Dioxide 29 mmol/L (21-32) 02/13/17 06:00 Anion Gap 7 (8-16) L 02/13/17 06:00 BUN 6 mg/dL (7-18) L D 02/13/17 06:00 Creatinine 0.6 mg/dL (0.7-1.3) L 02/13/17 06:00 Creat Clearance w eGFR > 60 (>60) 02/13/17 06:00 Random Glucose 89 mg/dL (74-106) 02/13/17 06:00 Calcium 8.9 mg/dL (8.5-10.1) 02/13/17 06:00 Total Bilirubin 0.3 mg/dL (0.2-1.0) D 02/13/17 06:00 AST 30 U/L (15-37) D 02/13/17 06:00 ALT 28 U/L (12-78) D 02/13/17 06:00 Alkaline Phosphatase 179 U/L (45-117) H D 02/13/17 06:00 Total Protein 7.7 g/dl (6.4-8.2) D 02/13/17 06:00 Albumin 3.6 g/dl (3.4-5.0) 02/13/17 06:00 Urine Color Yellow 02/12/17 21:30 Urine Appearance Clear 02/12/17 21:30 Urine pH 7.0 (5.0-8.0) 02/12/17 21:30 Ur Specific [place] 1.015 (1.005-1.025) 02/12/17 21:30 Urine Protein Negative (NEGATIVE) 02/12/17 21:30 Urine Glucose (UA) Negative (NEGATIVE) 02/12/17 21:30 Urine Ketones Negative (NEGATIVE) 02/12/17 21:30 Urine Blood Negative (NEGATIVE) 02/12/17 21:30 Urine Nitrite Negative (NEGATIVE) 02/12/17 21:30 Urine Bilirubin Negative (NEGATIVE) 02/12/17 21:30 Urine Urobilinogen Negative mg/dL (0.2-1.0) 02/12/17 21:30 Ur Leukocyte Esterase Negative (NEGATIVE) 02/12/17 21:30 RPR Titer Nonreactive (NONREACTIVE) 02/13/17 06:00 labs noted Assessment: 02/15/17 18:00 withdrawal sx. Plan: Continue detox
[2017-02-15] MEDS: THIAMINE HCL 100 MG TABLET (FP) PO SCH (22:47)
[2017-02-15] MEDS: chlordiazePOXIDE HCL 10 MG CAPSULE PO SCH (22:48)
[2017-02-16] MEDS: METHADONE HCL 40 MG DISPERSABLE TABLET PO SCH (05:41)
[2017-02-16] MEDS: chlordiazePOXIDE HCL 10 MG CAPSULE PO SCH ×2 (05:42→10:38)
--- NOTE | 2017-02-16 08:59 | DS ---
[facility] Detox Discharge Summary Admission Date: 02/12/17 Discharge Date: 02/16/17 - History Present History: Alcohol Dependence, Opioid Dependence, Sedative Dependence, MMTP Additional Comments: Detox completed. Alert and oriented x 3 and in no acute distress. Patient encouraged to follow up with PMD at [facility] for medical management. Pertinent Past History: Psoriasis, COPD, Insomnia, Anxiety and Depression - Physical Exam Results Vital Signs: Vital Signs Temperature 96.7 F L 02/16/17 06:23 Pulse Rate 85 02/16/17 06:23 Respiratory Rate 16 02/16/17 06:23 Blood Pressure 103/60 02/16/17 06:23 O2 Sat by Pulse Oximetry (%) Laboratory Last Values WBC 6.9 K/mm3 (4.0-10.0) 02/13/17 06:00 RBC 4.55 M/mm3 (4.00-5.60) 02/13/17 06:00 Hgb 13.1 GM/dL (11.7-16.9) 02/13/17 06:00 Hct 40.9 % (35.4-49) 02/13/17 06:00 MCV 89.8 fl (80-96) 02/13/17 06:00 MCH 28.9 pg (25.7-33.7) 02/13/17 06:00 MCHC 32.1 g/dl (32.0-35.9) 02/13/17 06:00 RDW 16.9 % (11.9-15.9) H D 02/13/17 06:00 Plt Count 246 K/MM3 (134-434) D 02/13/17 06:00 MPV 7.8 fl (7.5-11.1) 02/13/17 06:00 Sodium 137 mmol/L (136-145) 02/13/17 06:00 Potassium 4.1 mmol/L (3.5-5.1) 02/13/17 06:00 Chloride 101 mmol/L (98-107) 02/13/17 06:00 Carbon Dioxide 29 mmol/L (21-32) 02/13/17 06:00 Anion Gap 7 (8-16) L 02/13/17 06:00 BUN 6 mg/dL (7-18) L D 02/13/17 06:00 Creatinine 0.6 mg/dL (0.7-1.3) L 02/13/17 06:00 Creat Clearance w eGFR > 60 (>60) 02/13/17 06:00 Random Glucose 89 mg/dL (74-106) 02/13/17 06:00 Calcium 8.9 mg/dL (8.5-10.1) 02/13/17 06:00 Total Bilirubin 0.3 mg/dL (0.2-1.0) D 02/13/17 06:00 AST 30 U/L (15-37) D 02/13/17 06:00 ALT 28 U/L (12-78) D 02/13/17 06:00 Alkaline Phosphatase 179 U/L (45-117) H D 02/13/17 06:00 Total Protein 7.7 g/dl (6.4-8.2) D 02/13/17 06:00 Albumin 3.6 g/dl (3.4-5.0) 02/13/17 06:00 Urine Color Yellow 02/12/17 21:30 Urine Appearance Clear 02/12/17 21:30 Urine pH 7.0 (5.0-8.0) 02/12/17 21:30 Ur Specific [place] 1.015 (1.005-1.025) 02/12/17 21:30 Urine Protein Negative (NEGATIVE) 02/12/17 21:30 Urine Glucose (UA) Negative (NEGATIVE) 02/12/17 21:30 Urine Ketones Negative (NEGATIVE) 02/12/17 21:30 Urine Blood Negative (NEGATIVE) 02/12/17 21:30 Urine Nitrite Negative (NEGATIVE) 02/12/17 21:30 Urine Bilirubin Negative (NEGATIVE) 02/12/17 21:30 Urine Urobilinogen Negative mg/dL (0.2-1.0) 02/12/17 21:30 Ur Leukocyte Esterase Negative (NEGATIVE) 02/12/17 21:30 RPR Titer Nonreactive (NONREACTIVE) 02/13/17 06:00 Labs noted Pertinent Admission Physical Exam Findings: Withdrawal sx - Treatment Hospital Course: Detox Protocol Followed, Detoxed Safely, Responded well, Discharged Condition Good Patient has Accepted a Rehab Referral to: [facility] - Medication Discharge Medications: Ambulatory Orders Albuterol Sulfate Inhaler - [Ventolin Hfa Inhaler -] 2 inh PO Q4H PRN 12/08/16 Budesonide/Formeterol Fumarate [SYMBICORT 80/4.5mcg -] 1 inh PO BID 12/08/16 - Diagnosis (1) Alcohol dependence with uncomplicated withdrawal Current Visit: Yes Status: Acute (2) Anxiety and depression Current Visit: Yes Status: Acute (3) Nicotine dependence Current Visit: Yes Status: Acute Qualifiers: Nicotine product type: cigarettes Substance use status: in withdrawal Qualified Code(s): F17.213 - Nicotine dependence, cigarettes, with withdrawal; F17.213 - Nicotine dependence, cigarettes, with withdrawal (4) Uncomplicated sedative, hypnotic or anxiolytic withdrawal Current Visit: Yes Status: Acute (5) COPD (chronic obstructive pulmonary disease) Current Visit: Yes Status: Chronic (6) Methadone maintenance therapy patient Current Visit: Yes Status: Chronic (7) Psoriasis Current Visit: Yes Status: Chronic (8) Opioid dependence on agonist therapy Current Visit: Yes Status: Acute - AMA Did Patient Leave Against Medical Advice: No
[2017-02-16] MEDS: BUDESONIDE/FORMETEROL FUMARATE 80/4.5 mcg INHALER IH SCH (10:37)
[2017-02-16] MEDS: BETAMETHASONE DIP 0.05% TP LOTION 30 ML BOTTLE TP SCH (10:37)
[2017-02-16] MEDS: PRENATAL VITAMINS W/ FOLIC ACID TABLET (FP) PO SCH (10:37)
[2017-02-16] MEDS: CLOTRIMAZOLE/BETAMET DIPROP 15 GM TUBE TP SCH (10:37)
[2017-02-16] MEDS: NICOTINE 14 MG/24 HOURS TOPICAL PATCH TD SCH (10:38)
[2017-02-16 10:40] VITALS: BP 96/56; PULSE 71; TEMP 96.9
--- NOTE | 2017-02-16 16:04 | PN ---
BHS Progress Note Note: DISCHARGE NOTE REVIEWED DONE WITH OPAL WOODRUFF np
== END 2017-02-16 11:20 | disposition home or self-care (01) | DRG 773 ==
LOC: YASAS 12:27 → Y3N 16:29
PROVIDERS: ADMIT Internal Medicine; ATTEND Internal Medicine
PROC: HZ2ZZZZ Detoxification Services for Substance Abuse Treatment (ICD-10-PCS; principal; 2017-02-12)
DX: F13.230 Sedative, hypnotic or anxiolytic dependence with withdrawal, uncomplicated (principal); F10.230 Alcohol dependence with withdrawal, uncomplicated; F11.20 Opioid dependence, uncomplicated; F17.213 Nicotine dependence, cigarettes, with withdrawal; F41.8 Other specified anxiety disorders; J44.9 Chronic obstructive pulmonary disease, unspecified; L40.9 Psoriasis, unspecified; B18.2 Chronic viral hepatitis C; G47.00 Insomnia, unspecified; Z87.898 Personal history of other specified conditions; Z59.0 Homelessness
CPT/HCPCS: 36415; 80053; 81003; 85027; 86593; 93005; 93010

== ENCOUNTER 2018-10-20 01:39 | Inpatient (IN) | payer OTHER ==
--- NOTE | 2018-10-20 02:20 | PDOC ---
*Physical Exam - Vital Signs Last Vital Signs Temp Pulse Resp BP Pulse Ox 97.9 F 77 20 115/69 100 10/20/18 01:39 10/20/18 01:39 10/20/18 01:39 10/20/18 01:39 10/20/18 01:39 ED Treatment Course - LABORATORY CBC & Chemistry Diagram: 10/20/18 02:40 10/20/18 02:40 Medical Decision Making - Medical Decision Making 10/20/18 02:20 Patient seen by the advanced practice provider under my direct supervision. Ancillary testing reviewed as necessary. I agree with plan as outlined by the advanced practice provider. *DC/Admit/Observation/Transfer Diagnosis at time of Disposition: Edema - Discharge Dispostion Condition at time of disposition: Fair - Referrals - Patient Instructions - Post Discharge Activity
--- NOTE | 2018-10-20 02:25 | PDOC ---
History of Present Illness - General Chief Complaint: Edema Stated Complaint: LEG SWELLING Time Seen by Provider: 10/20/18 02:11 - History of Present Illness Initial Comments: 10/20/18 02:59 53-year-old male brought in by ambulance complaining of bilateral lower extremity edema for the last 2 weeks with right leg edema worsening over time. Patient was sent from [facility] for evaluation. Patient reports that he had a relapse with Xanax and alcohol. patient also reports a fall 2 days ago in the shower unsure of head injury. Patient has a past medical history of COPD, vertigo. History of heroin use currently on methadone program at [facility]. Past History - Past Medical History Allergies/Adverse Reactions: Allergies Allergy/AdvReac Type Severity Reaction Status Date / Time No Known Allergies Allergy Verified 10/20/18 02:08 Home Medications: Ambulatory Orders NK [No Known Home Medication] 10/20/18 Anemia: No Asthma: No Cancer: No Cardiac Disorders: No CVA: No COPD: Yes CHF: No DVT: No Dementia: No Diabetes: No Dialysis: No GI Disorders: No Disorders: No HTN: No Hypercholesterolemia: No Kidney Stones: No Liver Disease: No Psychiatric Problems: No Seizures: No Thyroid Disease: No Lung CA: No Other medical history: VERTIGO - Surgical History Abdominal Surgery: Yes (R inguinal hernia.) Appendectomy: No Cardiac Surgery: No Cholecystectomy: No Gastric Stapling: No GI Surgery: No Lung Surgery: No Neurologic Surgery: No Orthopedic Surgery: No - Reproductive History Testicular Surgery: No - Immunization History Immunization Up to Date: Yes - Suicide/Smoking/Psychosocial Hx Smoking History: Current every day smoker Have you smoked in the past 12 months: Yes Number of Cigarettes Smoked Daily: 10 Information on smoking cessation initiated: No 'Breaking Loose' booklet given: 02/12/17 Hx Alcohol Use: Yes Drug/Substance Use Hx: No Substance Use Type: Alcohol, Opiates, Tranquilizers Hx Substance Use Treatment: Yes Respiratory Specific PMHX - Complaint Specific PMHX TB (Tuberculosis): No Review of Systems - Review of Systems Able to Perform ROS?: Yes Is the patient limited Guinean proficient: No Constitutional: No: Symptoms Reported, See HPI, Chills, Diaphoresis, Fever, Loss of Appetite, Malaise, Night Sweats, Weakness, Weight Stable, Unintentional Wgt. Loss, Unexplained wgt Loss, Other Respiratory: Yes: Shortness of Breath Cardiac (ROS): Yes: Edema Integumentary: Yes: Erythema *Physical Exam - Vital Signs Last Vital Signs Temp Pulse Resp BP Pulse Ox 97.9 F 77 20 115/69 100 10/20/18 01:39 10/20/18 01:39 10/20/18 01:39 10/20/18 01:39 10/20/18 01:39 - Physical Exam General Appearance: Yes: Appropriately Dressed Respiratory/Chest: positive: Lungs Clear, Normal Breath Sounds Cardiovascular: positive: Regular Rhythm, Regular Rate Gastrointestinal/Abdominal: positive: Soft, Distended. negative: Tender Extremity: positive: Swelling (pitting edema). negative: Calf Tenderness ( right leg > left leg) Integumentary: positive: Normal Color, Dry, Warm Neurologic: positive: Fully Oriented, Alert, Normal Mood/Affect ED Treatment Course - LABORATORY CBC & Chemistry Diagram: 10/20/18 02:40 10/20/18 02:40 Progress Note - Progress Note Progress Note: A: leg pain/ swelling; shortness of breath , P P: cbc cmp d-dimer chest xray CTA chest head Medical Decision Making - Medical Decision Making 10/20/18 05:26 CTA chest: Positive for a small 4 mm pulmonary embolus IN a right lower lobe pulmonary artery branch point. Best seen on axial image 68/114 and coronal MIP image 83/211. No saddle emboli. Negative for thoracic aortic aneurysm or dissection. There is a moderate sized left pleural effusion with associated compressive atelectasis. Right lung is clear. Shotty mediastinal lymph nodes. Numerous low-density liver lesions are seen throughout the liver. The largest is in the right lobe measuring at least 9.9 cm. These most likely represent metastatic lesions. There is also nodularity of the omentum. This may omental caking and could represent a manifestation of peritoneal carcinomatosis. CT head 10/20/18 06:[address] patient signed out to Dr. Adkins. patient to be admitted for further management of care. *DC/Admit/Observation/Transfer Diagnosis at time of Disposition: Omental mass Edema Qualifiers: Edema type: unspecified Qualified Code(s): R60.9 - Edema, unspecified Pulmonary embolism Qualifiers: Pulmonary embolism type: unspecified Chronicity: acute Acute cor pulmonale presence: without acute cor pulmonale Qualified Code(s): I26.99 - Other pulmonary embolism without acute cor pulmonale - Discharge Dispostion Condition at time of disposition: Fair Decision to Admit order: Yes - Referrals - Patient Instructions - Post Discharge Activity
[2018-10-20 02:57] LABS: BASO % 0.7 % (0-2.0); EOS % 2.3 % (0-4.5); HEMATOCRIT 38.1 % (35.4-49); HEMOGLOBIN 12.4 GM/dL (11.7-16.9); LYMPH % 27.6 % (8-40); MCH 27.8 pg (25.7-33.7); MCHC 32.4 g/dl (32.0-35.9); MEAN CELL VOLUME 85.7 fl (80-96); MEAN PLT VOLUME 8.1 fl (7.5-11.1); MONO % 12.5 % (3.8-10.2); NEUT % 56.9 % (42.8-82.8); PLATELET COUNT 242 K/MM3 (134-434); RBC 4.45 M/mm3 (4.00-5.60); RDW 15.3 % (11.9-15.9); WHITE BLOOD COUNT 7.4 K/mm3 (4.0-10.0)
[2018-10-20 03:07] LABS: INR 1.26 (0.83-1.09); PROTHROMBIN TIME (PATIENT) 14.9 SEC (9.7-13.0)
[2018-10-20 03:09] LABS: ACTIVATED PTT 31.6 SECONDS (25.2-36.5)
[2018-10-20 03:22] LABS: ALBUMIN 3.4 g/dl (3.4-5.0); ALK PHOS 394 U/L (45-117); ANION GAP 5 MMOL/L (8-16); BILIRUBIN,TOTAL 0.4 mg/dL (0.2-1); CALCIUM 8.5 mg/dL (8.5-10.1); CHLORIDE 100 mmol/L (98-107); CO2 32 mmol/L (21-32); CREATININE 0.7 mg/dL (0.55-1.3); GLUCOSE,RANDOM 102 mg/dL (74-106); MAGNESIUM 2.1 mg/dL (1.8-2.4); N-TERMINAL BNP 37.7 pg/ml (5-125); POTASSIUM 4.2 mmol/L (3.5-5.1); SGOT/AST 53 U/L (15-37); SGPT/ALT 36 U/L (13-61); SODIUM 137 mmol/L (136-145); TOT PROT 7.5 g/dl (6.4-8.2)
[2018-10-20 03:24] LABS: BLOOD UREA NITROGEN 2.9 mg/dL (7-18)
[2018-10-20] MEDS ORDERED: HEPARIN NA (PORCINE) 5,000 UNITS/ML 1ML VIAL IVPUSH ONE (05:31)
[2018-10-20] MEDS ORDERED: HEPARIN NA (PORCINE) 5,000 UNITS/ML 1ML VIAL IVPUSH PRN ×3 (05:36→06:16)
[2018-10-20] MEDS ORDERED: HEPARIN INFUSION - 25,000 UNITS/500 ML INFUS.BAG IVPB ONE (05:56)
[2018-10-20] MEDS ORDERED: HEPARIN NA (PORCINE) 5,000 UNITS/ML 1ML VIAL ONE (05:56)
[2018-10-20] MEDS: HEPARIN INFUSION - 25,000 UNITS/500 ML INFUS.BAG IVPB SCH (06:20)
--- NOTE | 2018-10-20 07:20 | HP ---
CHIEF COMPLAINT: N/V , lwer Ext swelling PCP:Bebeto crarillo last seen last week HISTORY OF PRESENT ILLNESS: 53 year old male with pmhx of copd , vertigo, HLD, poly substance abuse (Alcohol , Benzo, Heroin on Methadone 80 mg po daily at [facility] ) presented to [facility] yesterday due to withdrawal symptoms ,Nausea , vomiting x5 pinkish colors , shaking, chills , diarrhea x3 non bloody , watery . was send to ED [facility] due to Lower ext edema . pt was found to have Right lung PE and admitted to [facility] for evaluation. pt reports slight headach and blurry vision , but denies any recent cold , cough , chest pain , he reports some sob on rest , denies any orthopnea or dyspnea on exertion . reports diffuse abdominal pain with N/V on and off for about a month. denies any dysuria or any change in urine color . reports LE edema worsening last couple days. denies any calf tenderness pt drink 2 pints of vodka daily last drink yesterday pt use Ativan 2 mg twice daily and 6 mg klonapin he get them from street he reports feeling numbness and skin crawling when he does not get Ativan. ER course was notable for: (1) CT head negative (2) CTA chest with [place] right lung upper and lower and liver mets (3)cbc , cmp un remarkable Recent Travel: denies PAST MEDICAL HISTORY: copd, vertigo ,was on mclezin stop 6 months ago Methadon 80 mg po daily PAST SURGICAL HISTORY: R inguinal hernia Social History: Smoking:quit one year ago , before that smoke 1 ppd from age of 17 till 52 Alcohol:2 pints of vodka daily last drink yesterday Drugs: Family History: Allergies No Known Allergies Allergy (Verified 10/20/18 02:08) HOME MEDICATIONS: Home Medications Medication Instructions Recorded NK [No Known Home Medication] 10/20/18 REVIEW OF SYSTEMS CONSTITUTIONAL: Absent: fever, chills, diaphoresis, generalized weakness, malaise, loss of appetite, weight change HEENT: Absent: rhinorrhea, nasal congestion, throat pain, throat swelling, difficulty swallowing, mouth swelling, ear pain, eye pain, visual changes CARDIOVASCULAR: Absent: chest pain, syncope, palpitations, irregular heart rate, lightheadedness , peripheral edema RESPIRATORY: Absent: cough, shortness of breath, dyspnea with exertion, orthopnea, wheezing, stridor, hemoptysis GASTROINTESTINAL: Absent: abdominal pain, abdominal distension, nausea, vomiting, diarrhea, constipation, melena, hematochezia GENITOURINARY: Absent: dysuria, frequency, urgency, hesitancy, hematuria, flank pain, genital pain MUSCULOSKELETAL: Absent: myalgia, arthralgia, joint swelling, back pain, neck pain SKIN: Absent: rash, itching, pallor HEMATOLOGIC/IMMUNOLOGIC: Absent: easy bleeding, easy bruising, lymphadenopathy, frequent infections ENDOCRINE: Absent: unexplained weight gain, unexplained weight loss, heat intolerance, cold intolerance NEUROLOGIC: Absent: headache, focal weakness or paresthesias, dizziness, unsteady gait, seizure, mental status changes, bladder or bowel incontinence PSYCHIATRIC: Absent: anxiety, depression, suicidal or homicidal ideation, hallucinations. PHYSICAL EXAMINATION Vital Signs - 24 hr 10/20/18 10/20/18 10/20/18 01:39 02:47 02:50 Temperature 97.9 F Pulse Rate 77 76 Pulse Rate [ 76 Apical] Respiratory 20 20 Rate Blood Pressure 115/69 Blood Pressure 117/67 [Right Arm] O2 Sat by Pulse 100 95 95 Oximetry (%) GENERAL: AAOx3 , lethargic , sun downing HEAD: Normal with no signs of trauma. EYES: Pupils equal, round and reactive to light, extraocular movements intact, sclera anicteric, conjunctiva clear.no nystagmus EARS, NOSE, THROAT: Ears normal, nares patent, oropharynx clear without exudates. Moist mucous membranes. NECK: Normal range of motion, supple LUNGS:decrease left base breath sounds . No wheezes, and no crackles. No accessory muscle use. HEART: Regular rate and rhythm, normal S1 and S2 without murmur, rub or gallop. ABDOMEN: Soft, diffuse tenderness , not distended, normoactive bowel sounds, no guarding, RUQ , RLQ tenserness , LLQ tenderness LOWER EXTREMITIES: 2+ pulses, warm, well-perfused. No calf tenderness. +2 peripheral edema. NEUROLOGICAL: Cranial nerves II-XII intact. Normal speech.gait not observed , no tremors , no nystagmus , Move all ext PSYCHIATRIC: Cooperative.lethargic SKIN: Warm, dry, perfiral vascular pigmentation B/L LE Laboratory Results - last 24 hr 10/20/18 10/20/18 10/20/18 02:40 02:40 02:40 WBC 7.4 RBC 4.45 Hgb 12.4 Hct 38.1 MCV 85.7 MCH 27.8 MCHC 32.4 RDW 15.3 Plt Count 242 MPV 8.1 Absolute Neuts (auto) 4.2 Neutrophils % 56.9 Lymphocytes % 27.6 Monocytes % 12.5 H Eosinophils % 2.3 Basophils % 0.7 Nucleated RBC % 0 PT with INR INR PTT (Actin FS) D-Dimer Sodium 137 Potassium 4.2 Chloride 100 Carbon Dioxide 32 Anion Gap 5 L BUN 2.9 L* Creatinine 0.7 Est GFR (CKD-EPI)AfAm 124.00 Est GFR (CKD-EPI)NonAf 106.99 Random Glucose 102 Calcium 8.5 Magnesium 2.1 Total Bilirubin 0.4 AST 53 H ALT 36 Alkaline Phosphatase 394 H Creatine Kinase 279 Creatine Kinase Index 0.4 CK-MB (CK-2) 1.3 Troponin I < 0.02 B-Natriuretic Peptide 37.7 Total Protein 7.5 Albumin 3.4 Stool Occult Blood Alcohol, Quantitative < 3.0 10/20/18 10/20/18 10/20/18 02:45 02:47 06:25 WBC RBC Hgb Hct MCV MCH MCHC RDW Plt Count MPV Absolute Neuts (auto) Neutrophils % Lymphocytes % Monocytes % Eosinophils % Basophils % Nucleated RBC % PT with INR 14.90 H INR 1.26 H PTT (Actin FS) 31.6 D-Dimer 56120 H Sodium Potassium Chloride Carbon Dioxide Anion Gap BUN Creatinine Est GFR (CKD-EPI)AfAm Est GFR (CKD-EPI)NonAf Random Glucose Calcium Magnesium Total Bilirubin AST ALT Alkaline Phosphatase Creatine Kinase Creatine Kinase Index CK-MB (CK-2) Troponin I B-Natriuretic Peptide Total Protein Albumin Stool Occult Blood Negative Alcohol, Quantitative CBC, BMP 10/20/18 02:40 10/20/18 02:40 Chest CTA Small emboli right upper and lower lobes. No large central embolus seen. Left effusion with compressive atelectasis and left pleural thickening. Findings in the abdomen suggestive of metastatic disease. Head CT : no acute pathology cxr left base atelectasis with new fluids LE vascular duoplex Findings consistent with deep venous thromboses in the mid and distal right superficial femoral vein. There is no evidence of DVT in the left lower extremity. Elongated lymph node in the right groin measuring 3.4 x 0.8 cm. ASSESSMENT/PLAN: 53 year old male with history of polysubstance abuse (ALcohol, Benzo, Heroin on methadone 80 mg po daily at [facility] ) presented to [facility] care yesterday due to withdrawal symptoms N/V/D, chills, shaking and was sent tp [facility] for evaluation due to LE and was found to have right lung PE admitted to inpatient tele for monitoring and treatment. # PE possible 2/2 malignancy * right lung upper and lower lobe , noted on CTA * no EKG changes * started on hep drip protocol with monitor PTT series * Echo to r.o right heart strain * Tele monitor, pulse oxy , bp monitor # Left lung base atelectasis with new fluids * likely due to malignancy will need paracentesis for pleural fluids studies * no fever or cough un likely PNA * urine legionella/steptococcus ag # Liver lesion largest 9.9 cm , # Diffuse abdominal pain with N/V # enlarged lymph node in the right groin consult IR for biopsy # N/V with pinkish color , monitor H/H , R/O brooke diaz tear * noted on chest CTA * oncology consult * GI consulted Dr Xiong group, Dr Rosa Maria Hatfield is covering * AST 54, ALt 36 , ALp 394 , f.u GGt * need CT Abdomen/pelvic tomorrow to screen for malignancy as pt already had contrast today * hep panel * AFP , CEA , CA 19-9, CA 125 * GGT # LE edema * chronic per pt , worsening last 2 days * LE US positve for VTS on right mid and distal superficial femoral vein * on hep drip # heroin on methadon 80 mg po daily # ALcohol dependence/withdrawal * last use yesterday 2 pints of vodka , * no withdrawal symptoms , no tremors , no nystagmus , monitor * banan bag , thiamin , folic acid * CIWA protocol 5 , ativan prn for withdrawal # Benzo abuse * pt use 2 mg Ativan twice daily and Klonapin 6 mg daily * Ativan PRN for agitation # COPD * does not use meds for long time , not on exacerbation * quit smoking 1 year ago # Vertigo , chronic was on meclizine stop taking it 6 months ago , still have imbalance feeling when he walk # Oral thrush # R.O HIV * per pt he was tested at [facility] last month and was negative * nystatin oral suspension # FEN * NS@ 100 CC/hr * Moniotr lytes * Regular diet # proph * Dvts :on hep drip * GI: PPI 20 daily # Dispo: * tele inpatient Visit type - Emergency Visit Emergency Visit: Yes ED Registration Date: 10/20/18 Care time: The patient presented to the Emergency Department on the above date and was hospitalized for further evaluation of their emergent condition. - New Patient This patient is new to me today: Yes Date on this admission: 10/20/18 - Critical Care Critical Care patient: No
[2018-10-20] MEDS ORDERED: METHADONE HCL 40 MG DISPERSABLE TABLET ONE (07:32)
[2018-10-20 07:34] LABS: COCAINE, UR NEGATIVE ng/ml (CUTOFF=300); PHENCYCLIDINE,URINE NEGATIVE ng/ml (CUTOFF=25); URINE AMPHETAMINES NEGATIVE ng/ml (CUTOFF=500); URINE BARBITURATES NEGATIVE ng/ml (CUTOFF=200); URINE BENZODIAZEPINES NEGATIVE ng/ml (CUTOFF=200)
[2018-10-20 07:50] LABS: METHADONE, UR POSITIVE ng/ml (CUTOFF=300); OPIATES, URI POSITIVE ng/ml (CUTOFF=300)
[2018-10-20] MEDS ORDERED: FOLIC ACID INJECTION - 1 MG, THIAMINE HCL 100 MG, MULTIVIT INJECTION ADULT 10 ML in SOD... IVPB ONE (08:19)
[2018-10-20] MEDS: METHADONE HCL 40 MG DISPERSABLE TABLET PO SCH (08:30)
--- NOTE | 2018-10-20 08:52 | EKG ---
Test Reason : Blood Pressure : / mmHG Vent. Rate : 081 BPM Atrial Rate : 081 BPM P-R Int : 158 ms QRS Dur : 098 ms QT Int : 404 ms P-R-T Axes : 048 029 040 degrees QTc Int : 469 ms NORMAL SINUS RHYTHM NORMAL ECG WHEN COMPARED WITH ECG OF 12-FEB-2017 18:07, T WAVE AMPLITUDE HAS DECREASED IN ANTEROLATERAL LEADS Confirmed by GREYSON PATINO, AZIZA ([id number]) on 10/20/2018 8:51:57 AM Referred By: Confirmed By:AZIZA RUBI MD
[2018-10-20] MEDS ORDERED: PANTOPRAZOLE 40 MG TABLET (FP) ONE (10:38)
[2018-10-20] MEDS ORDERED: FOLIC ACID 1 MG TABLET (FP) ONE (10:39)
[2018-10-20] MEDS ORDERED: THIAMINE HCL 200 MG/2 ML VIAL ONE (10:40)
[2018-10-20] MEDS: PANTOPRAZOLE 20 MG TABLET (FP) PO SCH (10:58)
[2018-10-20] MEDS: FOLIC ACID 1 MG TABLET (FP) PO SCH (10:58)
[2018-10-20] MEDS ORDERED: SODIUM CHLORIDE 1,000 ML IV STA (11:47)
[2018-10-20] MEDS ORDERED: LORazepam 0.5 MG TABLET PO PRN (13:43)
[2018-10-20] MEDS: NYSTATIN 500,000 UNITS/5 ML SUSPENSION PO SCH ×2 (13:54→19:01)
[2018-10-20] MEDS: THIAMINE HCL 200 MG/2 ML VIAL IVPB SCH (13:54)
--- NOTE | 2018-10-20 15:27 | EKG ---
Test Reason : Blood Pressure : / mmHG Vent. Rate : 081 BPM Atrial Rate : 081 BPM P-R Int : 152 ms QRS Dur : 092 ms QT Int : 408 ms P-R-T Axes : 031 012 029 degrees QTc Int : 473 ms NORMAL SINUS RHYTHM NORMAL ECG WHEN COMPARED WITH ECG OF 20-OCT-2018 03:07, NO SIGNIFICANT CHANGE WAS FOUND Confirmed by AZIZA RUBI MD ([id number]) on 10/20/2018 3:27:30 PM Referred By: Confirmed By:AZIZA RUBI MD
--- NOTE | 2018-10-20 15:29 | PN ---
Teaching Attending Note Name of Resident: Balbir Jones ATTENDING PHYSICIAN STATEMENT I saw and evaluated the patient. I reviewed the resident's note and discussed the case with the resident. I agree with the resident's findings and plan as documented. SUBJECTIVE:53yo M wt PMH COPD and continuous polysubstance abuse sent from [facility] for dyspnea and B/L LE edema. pt is a poor historian and very vague on symptoms. states hes been having LE swelling for some time but got worse over the past few days. also reports some intermittent RLQ abdominal pain that has overall gotten better and not currently experiencing it. states he had general workup from his PMD 3 months ago and was told everything was ok. Had routine colonscopy 2 years ago which was normal and routine stress test slightly before that which he also reports as normal. never had EGD, never was told he had liver disease from drinking. states he was clean for some time but recently relapsed with ETOH and BZD. father of colon cancer in his early 60's. unsure at what age he was diagnosed OBJECTIVE: Last Vital Signs Temp Pulse Resp BP Pulse Ox 98.2 F 79 16 110/77 99 10/20/18 07:30 10/20/18 07:30 10/20/18 07:30 10/20/18 07:30 10/20/18 07:56 General NAD, slow to respond, flat affect, bitemporal wasting CV s1 S2 RRR no murmur/rub/gallop Lungs decreased B/L bases no wheezing Abdomen soft +distended. +hepatomegaly Extremities B/L pitting edema 3+ RLE, no tremorts ASSESSMENT AND PLAN: 53yo M wtih H COPD and continuous polysubstance abuse sent from [facility] for dyspnea and B/L LE edema was found to have RLE DVT and R PE. also on imaging he was found to have multiple liver lesions and peritoneal carcionmatosis. 1. Liver lesions with multiple lung nodles, peritoneal carcinomatosis with extensive intra-abdominal adenopathy- highly suggestive of metastatic disease. unclear primary at this time. will obtain CT abdomen/pelvis with contrast. Head CT is negative. check CEA, AFP, CA 19-9. check hepatitis panel. would need EGD done as well and would likely benefit from this being done in the acute care setting as pt is being placed on anticoagulation and unclear for patient follow up. will also speak with IR about getting liver bx. GI and oncology consult 2. PE/DVT- increased risk in setting of suspected malignancy. low concern for heart strain as pt is hemodynamically stable. on hep ggt. will switch to NAOC once no more procedures/interventions planned. echo pending. will need to stress caution in using anticoagulation in patient who drinks due to risk of bleeding 3. Continuous polysubstance abuse- CIWA 1. no signs of withdrawal. will give banana bag. monitor for signs of withdrawal. last drink was 10/19. will hold detox at this time. 4. Ex heroin user- on methadone. dose confirmed. will re-start 5. will place call to PMD tomorrow to obtain collateral information
[2018-10-20] MEDS: SODIUM CHLORIDE 1,000 ML IV SCH (18:19)
--- NOTE | 2018-10-20 18:21 | CONSULT ---
Consultation: REQUESTING PROVIDER: Dr Jones CONSULT REQUEST: We have been asked to medically evaluate this patient for ( specify). HISTORY OF PRESENT ILLNESS: The patient is a 53 year old male with pmhx of COPD , vertigo, dyslipidemia, polysubstance abuse (alcohol, benzo, heroin on Methadone), admitted for dyspnea and B/L LE edema, nausea, vomiting. He was found to have RLE DVT and right lung upper and lower lobe PE, multiple liver lesions and peritoneal carcionmatosis. The patient reports occasional abdominal pain, nausea, for few weeks and lower back pain after he fell in the bathroom about week ago. He also gained 15 lbs in the past 1-2 months. He states that due to his vertigo he was not active and stayed at home. He also noticed increased swelling in legs recently. The patient has occasional night sweats when he doesn't take Xanax for anxiety. PSH: right inguinal hernia SH: Smoking: quit last year , before 1 ppd since age of 17, alcohol" too much". 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 Never , no children. FH: father: colon cancer, mother " of old age" REVIEW OF SYSTEMS: CONSTITUTIONAL: weight change Absent: fever, chills, diaphoresis, generalized weakness, malaise, loss of appetite HEENT: Absent: rhinorrhea, nasal congestion, throat pain CARDIOVASCULAR: peripheral edema Absent: chest pain, syncope, palpitations, irregular heart rate, lightheadedness RESPIRATORY: Absent: cough, shortness of breath, orthopnea, wheezing GASTROINTESTINAL:abdominal pain, Absent: abdominal distension, nausea, vomiting, diarrhea, constipation, melena, hematochezia GENITOURINARY: Absent: dysuria, frequency, urgency, hesitancy, hematuria, flank pain, genital pain MUSCULOSKELETAL: back pain, Absent: myalgia, arthralgia, joint swelling, neck pain SKIN: Absent: rash, itching, pallor HEMATOLOGIC/IMMUNOLOGIC: Absent: easy bleeding, easy bruising, lymphadenopathy, frequent infections ENDOCRINE: Absent: unexplained weight gain, unexplained weight loss NEUROLOGIC: Absent: headache, focal weakness or paresthesias, dizziness, unsteady gait PSYCHIATRIC: Absent: anxiety, depression PHYSICAL EXAMINATION Vital Signs - 24 hr 10/20/18 10/20/18 10/20/18 01:39 02:47 02:50 Temperature 97.9 F Pulse Rate 77 76 Pulse Rate [ 76 Apical] Respiratory 20 20 Rate Blood Pressure 115/69 Blood Pressure 117/67 [Right Arm] O2 Sat by Pulse 100 95 95 Oximetry (%) 10/20/18 10/20/18 07:30 07:56 Temperature 98.2 F Pulse Rate Pulse Rate [ 79 Apical] Respiratory 16 Rate Blood Pressure Blood Pressure 110/77 [Right Arm] O2 Sat by Pulse 97 99 Oximetry (%) GENERAL: Awake, alert, and fully oriented, in no acute distress. HEAD: Normal with no signs of trauma. EYES: Pupils equal, round and reactive to light, extraocular movements intact. EARS, NOSE, THROAT: Ears normal, nares patent, oral thrush present. Moist mucous membranes. NECK: Normal range of motion, supple without lymphadenopathy. LUNGS: Diminished, occasional rhales bilaterally. No wheezes, and no crackles. No accessory muscle use. HEART: Regular rate and rhythm, normal S1 and S2 without murmur, rub or gallop. ABDOMEN: Soft, tender in RUQ and LUQ, not distended, normoactive bowel sounds, no guarding, + hepatomegaly. MUSCULOSKELETAL: Normal range of motion at all joints. Tenderness in lower back on right side at sacral level. No CVA tenderness. UPPER EXTREMITIES: No peripheral edema. LOWER EXTREMITIES: 2+ pulses, warm, well-perfused. Calf tenderness in RLE, 1 + peripheral edema on right side, trace on left. NEUROLOGICAL: Non focal. Normal speech. PSYCHIATRIC: Cooperative. Good eye contact. Appropriate mood and affect. SKIN: Warm, dry, normal turgor, no rashes. TESTICLES: no erythema, no swelling, no masses, no discharge from penis, no lymphadenopathy. Laboratory Results - last 24 hr 10/20/18 10/20/18 10/20/18 02:40 02:40 02:40 WBC 7.4 RBC 4.45 Hgb 12.4 Hct 38.1 MCV 85.7 MCH 27.8 MCHC 32.4 RDW 15.3 Plt Count 242 MPV 8.1 Absolute Neuts (auto) 4.2 Neutrophils % 56.9 Lymphocytes % 27.6 Monocytes % 12.5 H Eosinophils % 2.3 Basophils % 0.7 Nucleated RBC % 0 PT with INR INR PTT (Actin FS) D-Dimer Sodium 137 Potassium 4.2 Chloride 100 Carbon Dioxide 32 Anion Gap 5 L BUN 2.9 L* Creatinine 0.7 Est GFR (CKD-EPI)AfAm 124.00 Est GFR (CKD-EPI)NonAf 106.99 Random Glucose 102 Calcium 8.5 Magnesium 2.1 Total Bilirubin 0.4 GGT AST 53 H ALT 36 Alkaline Phosphatase 394 H Creatine Kinase 279 Creatine Kinase Index 0.4 CK-MB (CK-2) 1.3 Troponin I < 0.02 B-Natriuretic Peptide 37.7 Total Protein 7.5 Albumin 3.4 Vitamin B12 Serum Folate Stool Occult Blood Opiates Screen Methadone Screen Barbiturate Screen Phencyclidine Screen Ur Amphetamines Screen MDMA (Ecstasy) Screen Benzodiazepines Screen Cocaine Screen U Marijuana (THC) Screen Alcohol, Quantitative < 3.0 10/20/18 10/20/18 10/20/18 02:45 02:47 06:25 WBC RBC Hgb Hct MCV MCH MCHC RDW Plt Count MPV Absolute Neuts (auto) Neutrophils % Lymphocytes % Monocytes % Eosinophils % Basophils % Nucleated RBC % PT with INR 14.90 H INR 1.26 H PTT (Actin FS) 31.6 D-Dimer 20190 H Sodium Potassium Chloride Carbon Dioxide Anion Gap BUN Creatinine Est GFR (CKD-EPI)AfAm Est GFR (CKD-EPI)NonAf Random Glucose Calcium Magnesium Total Bilirubin GGT AST ALT Alkaline Phosphatase Creatine Kinase Creatine Kinase Index CK-MB (CK-2) Troponin I B-Natriuretic Peptide Total Protein Albumin Vitamin B12 Serum Folate Stool Occult Blood Negative Opiates Screen Methadone Screen Barbiturate Screen Phencyclidine Screen Ur Amphetamines Screen MDMA (Ecstasy) Screen Benzodiazepines Screen Cocaine Screen U Marijuana (THC) Screen Alcohol, Quantitative 10/20/18 10/20/18 10/20/18 06:30 10:26 12:39 WBC RBC Hgb Hct MCV MCH MCHC RDW Plt Count MPV Absolute Neuts (auto) Neutrophils % Lymphocytes % Monocytes % Eosinophils % Basophils % Nucleated RBC % PT with INR INR PTT (Actin FS) D-Dimer Sodium Potassium Chloride Carbon Dioxide Anion Gap BUN Creatinine Est GFR (CKD-EPI)AfAm Est GFR (CKD-EPI)NonAf Random Glucose Calcium Magnesium Total Bilirubin GGT 196 H AST ALT Alkaline Phosphatase Creatine Kinase Creatine Kinase Index CK-MB (CK-2) Troponin I B-Natriuretic Peptide Total Protein Albumin Vitamin B12 1444 H Serum Folate 10 Stool Occult Blood Opiates Screen Positive A* Methadone Screen Positive A* Barbiturate Screen Negative Phencyclidine Screen Negative Ur Amphetamines Screen Negative MDMA (Ecstasy) Screen Negative Benzodiazepines Screen Negative Cocaine Screen Negative U Marijuana (THC) Screen Negative Alcohol, Quantitative 10/20/18 14:00 WBC RBC Hgb Hct MCV MCH MCHC RDW Plt Count MPV Absolute Neuts (auto) Neutrophils % Lymphocytes % Monocytes % Eosinophils % Basophils % Nucleated RBC % PT with INR INR PTT (Actin FS) 113.7 H D-Dimer Sodium Potassium Chloride Carbon Dioxide Anion Gap BUN Creatinine Est GFR (CKD-EPI)AfAm Est GFR (CKD-EPI)NonAf Random Glucose Calcium Magnesium Total Bilirubin GGT AST ALT Alkaline Phosphatase Creatine Kinase Creatine Kinase Index CK-MB (CK-2) Troponin I B-Natriuretic Peptide Total Protein Albumin Vitamin B12 Serum Folate Stool Occult Blood Opiates Screen Methadone Screen Barbiturate Screen Phencyclidine Screen Ur Amphetamines Screen MDMA (Ecstasy) Screen Benzodiazepines Screen Cocaine Screen U Marijuana (THC) Screen Alcohol, Quantitative Active Medications Generic Name Dose Route Start Last Admin Trade Name Freq PRN Reason Stop Dose Admin Folic Acid 1 mg 10/20/18 10:00 10/20/18 10:58 Folic Acid - PO 1 mg DAILY ALTA Administration Heparin Sodium (Porcine) 4,000 unit 10/20/18 05:36 Heparin - 40 unit/kg (4000 unit) IVPUSH PRN PRN For aPTT 35 to 45 seconds Heparin Sodium (Porcine) 8,000 unit 10/20/18 05:36 Heparin - 80 unit/kg (8000 unit) IVPUSH PRN PRN aPTT <35 seconds Heparin Sodium/Dextrose 25,000 units in 500 mls @ 35.924 mls/hr 10/20/18 05: 45 10/20/18 06:20 Heparin Infusion - IVPB 18 units/kg/hr TITR ALTA 35.924 mls/hr Administration Protocol 18 UNITS/KG/HR Sodium Chloride 1,000 mls @ 100 mls/hr 10/20/18 12:00 Normal Saline - IV ASDIR ALTA Lorazepam 1 mg 10/20/18 13:43 Ativan - PO Q12H PRN ANXIETY Methadone HCl 80 mg 10/20/18 09:00 10/20/18 08:30 Dolophine - PO 80 mg DAILY@0600 ALTA Administration Nystatin 500,000 units 10/20/18 12:00 10/20/18 13:54 Nystatin Oral Suspension - PO 500,000 units Q6HPO ALTA Administration Pantoprazole Sodium 20 mg 10/20/18 10:00 10/20/18 10:58 Protonix - PO 20 mg DAILY ALTA Administration Thiamine HCl 200 mg 10/20/18 10:00 10/20/18 13:54 Vitamin B1 Injection - IVPB 200 mg DAILY ALTA Administration ASSESSMENT/PLAN: The patient is a 53 year old male with pmhx of COPD , vertigo, dyslipidemia, polysubstance abuse (alcohol, benzo, heroin on Methadone), admitted for dyspnea and B/L LE edema, nausea, vomiting. He was found to have RLE DVT and right lung upper and lower lobe PE, multiple liver lesions and peritoneal carcionmatosis. PE liver masses, possible colon Ca polysubstance abuse transaminitis COPD vertigo oral thrush Plan: We recommend to obtain tissue biopsy when patient stable for procedure. Please continue Heparin drip, f/u CT abdomen/pelvis, hepatitis panel, tumor markers Dispo: We will continue to follow the patient. Thank you for this consultative opportunity. Problem List - Problems (1) Edema of left lower extremity Code(s): R60.0 - LOCALIZED EDEMA (2) Pulmonary embolism Code(s): I26.99 - OTHER PULMONARY EMBOLISM WITHOUT ACUTE COR PULMONALE Qualifiers: Pulmonary embolism type: unspecified Chronicity: acute Acute cor pulmonale presence: without acute cor pulmonale Qualified Code(s): I26.99 - Other pulmonary embolism without acute cor pulmonale (3) COPD (chronic obstructive pulmonary disease) Code(s): J44.9 - CHRONIC OBSTRUCTIVE PULMONARY DISEASE, UNSPECIFIED (4) Methadone maintenance therapy patient Code(s): F11.20 - OPIOID DEPENDENCE, UNCOMPLICATED Visit type - Emergency Visit Emergency Visit: Yes ED Registration Date: 10/20/18 Care time: The patient presented to the Emergency Department on the above date and was hospitalized for further evaluation of their emergent condition. - New Patient This patient is new to me today: Yes Date on this admission: 10/20/18 - Critical Care Critical Care patient: No
--- NOTE | 2018-10-20 18:36 | CON.GI ---
Consult Consult Specialty:: Gastroenterology Referred by:: Dr. Camarillo Reason for Consultation:: Liver mass - History of Present Illness Chief Complaint: LE edema, sob History of Present Illness: 53yo male h/o COPD, polysubstance abuse (etoh, heroin on methadone) presenting with dyspnea and LE edema with CTA revealing liver lesions and possible peritoneal carcinomatosis. Pt is poor historian, reports vague symptoms including n/v and intermittent periumbilical abdominal pain for 1-2 weeks. Initially had reported withdrawal symptoms then advised ED evaluation due to reports of shortness of breath and LE edema. Pt continues to drink 2 pints vodka daily. Reports constipation, moves bowels every ?1 week taking laxatives regularly, denies recent change or blood in stools. Denies weight loss. States he had colonoscopy 2 years ago at [facility] reportedly normal. Denies prior EGD. Reports positive family h/o colon ca (father diagnosed in 60s, details unclear). CTA revealing small right lobe PE, liver hypodensities and peritoneal carcinomatosis concerning for metastatic disease. Pt started on heparin gtt. - Alcohol/Substance Use Hx Alcohol Use: Yes - Smoking History Smoking history: Current every day smoker Have you smoked in the past 12 months: Yes Aproximately how many cigarettes per day: 10 Home Medications - Allergies Allergies/Adverse Reactions: Allergies Allergy/AdvReac Type Severity Reaction Status Date / Time No Known Allergies Allergy Verified 10/20/18 02:08 - Home Medications Home Medications: Ambulatory Orders NK [No Known Home Medication] 10/20/18 Review of Systems - Review of Systems Constitutional: reports: No Symptoms Cardiovascular: reports: No Symptoms Gastrointestinal: reports: No Symptoms, Abdominal Pain, Constipation Musculoskeletal: reports: No Symptoms Physical Exam-GI Vital Signs: Vital Signs Temperature 98.2 F 10/20/18 07:30 Pulse Rate 79 10/20/18 07:30 Respiratory Rate 16 10/20/18 07:30 Blood Pressure 110/77 10/20/18 07:30 O2 Sat by Pulse Oximetry (%) 99 10/20/18 07:56 Constitutional: Yes: No Distress, Calm, Other (Pt somnolent, rousable, oriented x 3) Cardiovascular: Yes: WNL, Regular Rate and Rhythm Respiratory: Yes: WNL, Regular, CTA Bilaterally ...Palpate: Yes: Other (Abd soft, nt, nd) Labs: CBC, BMP 10/20/18 02:40 10/20/18 02:40 INR, PTT INR 1.26 (0.83-1.09) H 10/20/18 02:45 Imaging - Results Cat Scan: Report Reviewed, Image Reviewed Problem List - Problems (1) Liver lesion Assessment/Plan: 53yo male h/o COPD, polysubstance abuse (etoh, heroin on methadone) presenting with dyspnea and LE edema with CTA revealing liver lesions and possible peritoneal carcinomatosis concerning for metastatic disease of unknown primary. Imaging also revealing PE and DVT, pt started on heparin gtt. Reported normal colonoscopy at outside facility 2 years ago. -Recommend await results of CT abd/pelvis -Check tumor markers including CEA, CA 19-9 and AFP -Follow up hepatitis serologies -Heme/oncology consult -Pt would require colonscopy/EGD r/o underlying GI malignancy however considering newly diagnosed PE will need to carefully weigh risks/benefits and determine timing accordingly -Consider IR consult for liver biopsy if feasible in the interim and pending further imaging Discussed with medicine attending Code(s): K76.9 - LIVER DISEASE, UNSPECIFIED
[2018-10-21 03:11] LABS: HBSAG SCREEN Negative (Negative); HEP A AB, IGM Negative (Negative); HEP B CORE AB, TOT Negative (Negative); HEP.C VIRUS AB >11.0 s/co ratio (0.0-0.9)
[2018-10-21 04:09] LABS: CARCINOEMBRYONIC ANTIGEN 28.2 ng/mL (0.0-4.7)
[2018-10-21] MEDS: NYSTATIN 500,000 UNITS/5 ML SUSPENSION PO SCH ×4 (04:41→18:00)
[2018-10-21 06:45] LABS: BASO % 0.7 % (0-2.0); EOS % 2.7 % (0-4.5); HEMATOCRIT 34.9 % (35.4-49); HEMOGLOBIN 11.4 GM/dL (11.7-16.9); LYMPH % 29.4 % (8-40); MCH 27.7 pg (25.7-33.7); MCHC 32.7 g/dl (32.0-35.9); MEAN CELL VOLUME 84.6 fl (80-96); MEAN PLT VOLUME 8.1 fl (7.5-11.1); MONO % 12.5 % (3.8-10.2); NEUT % 54.7 % (42.8-82.8); PLATELET COUNT 230 K/MM3 (134-434); RBC 4.12 M/mm3 (4.00-5.60); RDW 15.2 % (11.9-15.9); WHITE BLOOD COUNT 7.4 K/mm3 (4.0-10.0)
[2018-10-21 06:54] LABS: INR 1.16 (0.83-1.09); PROTHROMBIN TIME (PATIENT) 13.7 SEC (9.7-13.0)
[2018-10-21 06:57] LABS: ACTIVATED PTT 29.2 SECONDS (25.2-36.5)
[2018-10-21 07:08] LABS: CHOLESTEROL 99 mg/dL (50-200); HDL CHOLESTEROL 30 mg/dL (40-60); TRIGLYCERIDES 106 mg/dL (0-150)
[2018-10-21 07:46] LABS: ALBUMIN 2.9 g/dl (3.4-5.0); BILIRUBIN,TOTAL 0.4 mg/dL (0.2-1); CALCIUM 8.2 mg/dL (8.5-10.1); CREATININE 0.6 mg/dL (0.55-1.3); N-TERMINAL BNP 62.4 pg/ml (5-125); PHOSPHOROUS 3.7 mg/dL (2.5-4.9); POTASSIUM 4.4 mmol/L (3.5-5.1); TOT PROT 6.5 g/dl (6.4-8.2)
--- NOTE | 2018-10-21 08:06 | PN ---
Teaching Attending Note Name of Resident: Jessica Montoya ATTENDING PHYSICIAN STATEMENT I saw and evaluated the patient. I reviewed the resident's note and discussed the case with the resident. I agree with the resident's findings and plan as documented. SUBJECTIVE: Patient seen and examined 53 year old presents with swelling of the RLE over past several weeks and found to have DVT RLE with pulmonary emboli. Past history of smoking 1 ppd since age 16. Discontinued 1-2 years ago. Past history of 2 pints of vodka daily x years - discontinued 10 years ago. Past history of IV heroin - discontinued 2 years earlier. --Methadone maintenance Past history of hepatitis C treated with interferon 7-8 years ago. States 1 year earlier had colonoscopy reportedly non revealing at [facility] Family history positive with father with history of colon ca Last Vital Signs Temp Pulse Resp BP Pulse Ox 98.6 F 73 15 96/56 L 94 L 10/21/18 05:29 10/21/18 05:29 10/21/18 05:29 10/21/18 05:29 10/21/18 05:29 HEENT: BRANDIE, EOM Intact Oropharynx: No thrush, No mucositis,edentulous with smooth tongue Neck: Supple Nodes: Without adenopathy Cor: RSR, No murmurs, No gallops Lungs: Clear to P&A Abd: Soft, Normal bowel sounds, No organomegaly Ext:RLE edema , stasis bilaterally edema Skin: No rashes, Integument intact CBC, BMP 10/21/18 05:50 10/21/18 05:50 Abnormal Lab Results 10/20/18 10/20/18 10/20/18 10:26 12:39 12:39 Hgb Hct Monocytes % PT with INR INR PTT (Actin FS) Anion Gap BUN Calcium GGT AST Alkaline Phosphatase Albumin HDL Cholesterol Carcinoembryonic Ag 28.2 H Vitamin B12 1444 H Hepatitis C Antibody >11.0 H 10/20/18 10/20/18 10/21/18 12:39 14:00 00:13 Hgb Hct Monocytes % PT with INR INR PTT (Actin FS) 113.7 H 133.0 H Anion Gap BUN Calcium GGT 196 H AST Alkaline Phosphatase Albumin HDL Cholesterol Carcinoembryonic Ag Vitamin B12 Hepatitis C Antibody 10/21/18 10/21/18 10/21/18 05:50 05:50 05:50 Hgb 11.4 L Hct 34.9 L Monocytes % 12.5 H PT with INR 13.70 H INR 1.16 H PTT (Actin FS) Anion Gap 7 L BUN 4.0 L Calcium 8.2 L GGT AST 46 H Alkaline Phosphatase 348 H Albumin 2.9 L HDL Cholesterol Carcinoembryonic Ag Vitamin B12 Hepatitis C Antibody 10/21/18 05:50 Hgb Hct Monocytes % PT with INR INR PTT (Actin FS) Anion Gap BUN Calcium GGT AST Alkaline Phosphatase Albumin HDL Cholesterol 30 L Carcinoembryonic Ag Vitamin B12 Hepatitis C Antibody CT with multiple defects in liver and peritoneal carcinomatosis Impression: DVT/PE- for heparin therapy Liver defects /peritoneal carcinomatosis- ? multicentric hepatoma vs metastatic diseasse Hepatitis C by history Reportedly 1 year earlier - negative colonoscopy Suggest HIV testing Await markers Tissue when feasible OBJECTIVE: ASSESSMENT AND PLAN:
[2018-10-21] MEDS ORDERED: METHADONE HCL 40 MG DISPERSABLE TABLET ONE (08:13)
[2018-10-21 08:14] LABS: PH,URINE 8.5 (5.0-8.0); URINE APPEARANCE CLEAR; URINE BILIRUBIN NEGATIVE (NEGATIVE); URINE COLOR YELLOW; URINE GLUCOSE (UA) NEGATIVE (NEGATIVE); URINE KETONE NEGATIVE (NEGATIVE); URINE LEUK ESTERASE NEGATIVE (NEGATIVE); URINE NITRITE NEGATIVE (NEGATIVE); URINE PROTEIN NEGATIVE (NEGATIVE)
[2018-10-21] MEDS: METHADONE HCL 40 MG DISPERSABLE TABLET PO SCH (08:14)
[2018-10-21] MEDS: HEPARIN INFUSION - 25,000 UNITS/500 ML INFUS.BAG IVPB SCH ×2 (08:14→22:10)
[2018-10-21] MEDS ORDERED: HEPARIN INFUSION - 25,000 UNITS/500 ML INFUS.BAG IVPB ONE (08:19)
[2018-10-21] MEDS: FOLIC ACID 1 MG TABLET (FP) PO SCH (10:25)
[2018-10-21] MEDS: PANTOPRAZOLE 20 MG TABLET (FP) PO SCH (10:25)
[2018-10-21] MEDS: THIAMINE HCL 200 MG/2 ML VIAL IVPB SCH (10:26)
--- NOTE | 2018-10-21 11:54 | PN ---
Teaching Attending Note Name of Resident: Renetta Qureshi ATTENDING PHYSICIAN STATEMENT I saw and evaluated the patient. I reviewed the resident's note and discussed the case with the resident. I agree with the resident's findings and plan as documented. SUBJECTIVE:conitnues to have RLE pain and swelling. tolerated diet. denies CP, SOB, fever, chills, cough, hemoptysis, N/V/C/D OBJECTIVE: Last Vital Signs Temp Pulse Resp BP Pulse Ox 98.6 F 79 18 121/74 94 L 10/21/18 05:29 10/21/18 10:40 10/21/18 10:40 10/21/18 10:40 10/21/18 10:40 General NAD, flat affect, bitemporal wasting CV s1 S2 RRR no murmur/rub/gallop Lungs decreased B/L bases no wheezing Abdomen soft +distended. +hepatomegaly Extremities B/L pitting edema, trace LLE 3+ RLE, ASSESSMENT AND PLAN: 53yo M with PMH COPD and continuous polysubstance abuse sent from [facility] for dyspnea and B/L LE edema was found to have RLE DVT and R PE. also on imaging he was found to have multiple liver lesions and peritoneal carcionmatosis. 1. Liver lesions with multiple lung nodles, peritoneal carcinomatosis with extensive intra-abdominal adenopathy- highly suggestive of metastatic disease. unclear primary at this time. CEA and CA 19-9 both elevated (possible GB?). plan for CT abdomen and pelvix today, speak with IR for liver bx. would benefit from EGD/colonosocpy and would plan to do in hospital as poor follow up and need for anticoagulation. GI and oncology on board. hepatitis panel pending 2. PE/DVT- increased risk in setting of suspected malignancy. hemodynamically stable. not hypoxic. echo done this am. will follow up. low concern for heart strain. cont heparin ggt at this time until no further interventions are planned. 3. Continuous polysubstance abuse- CIWA 0. no signs of withdrawal. will give banana bag. monitor for signs of withdrawal. last drink was 10/19. will hold detox at this time. 4. Ex heroin user- on methadone. dose confirmed. 5. [address] call to PMD to obtain collateral information
[2018-10-21] MEDS ORDERED: FOLIC ACID INJECTION - 1 MG, THIAMINE HCL 100 MG, MULTIVIT INJECTION ADULT 10 ML in SOD... IVPB ONE (12:30)
--- NOTE | 2018-10-21 12:37 | PN ---
Physical Exam: SUBJECTIVE: Patient seen and examined at bedside. No acute events overnight. Pt has no complaints this AM. Admits to persistent RLE swelling. Denies f/c, n/v, cp, sob, abd pain, urinary/bowel symptoms. OBJECTIVE: Vital Signs Temperature 98.6 F 10/21/18 05:29 Pulse Rate 79 10/21/18 10:40 Respiratory Rate 18 10/21/18 10:40 Blood Pressure 121/74 10/21/18 10:40 O2 Sat by Pulse Oximetry (%) 94 L 10/21/18 10:40 GENERAL: AAOx3. NAD. Comfortable. HEENT: AT/NC. EOMI. Moist mucus membranes. NECK: Trachea midline, full range of motion, supple. LUNGS: Decreased breath sounds bilaterally. HEART: RRR. Normal S1, S2. No murmurs noted. ABDOMEN: Obese, soft, NT/ND. +BS. No masses noted. +Hepatomegaly EXTREMITIES: 2+ pulses, warm, well-perfused. 3+ pitting edema RLE. NEUROLOGICAL: Cranial nerves II through XII grossly intact. Normal speech, gait not observed. PSYCH: Flat affect. CBC, BMP 10/21/18 05:50 10/21/18 05:50 Active Medications Folic Acid (Folic Acid -) 1 mg PO DAILY [facility] Last Admin: 10/21/18 10:25 Dose: 1 mg Heparin Sodium (Porcine) (Heparin -) 4,000 unit 40 unit/kg (4000 unit) IVPUSH PRN PRN PRN Reason: For aPTT 35 to 45 seconds Heparin Sodium (Porcine) (Heparin -) 8,000 unit 80 unit/kg (8000 unit) IVPUSH PRN PRN PRN Reason: aPTT <35 seconds Heparin Sodium/Dextrose (Heparin Infusion -) 25,000 units in 500 mls @ 35.924 mls/hr IVPB TITR [facility]; Protocol Last Admin: 10/21/18 08:14 Dose: 22 units/kg/hr, 43.908 mls/hr Sodium Chloride (Normal Saline -) 1,000 mls @ 100 mls/hr IV ASDIR [facility] Last Admin: 10/20/18 18:19 Dose: 100 mls/hr Folic Acid 1 mg/ Thiamine HCl 100 mg/ Multivitamins/Minerals 10 ml/ Sodium Chloride 1,000 mls @ 125 mls/hr IVPB ONCE ONE Stop: 10/21/18 20:29 Lorazepam (Ativan -) 1 mg PO Q12H PRN PRN Reason: ANXIETY Methadone HCl (Dolophine -) 80 mg PO DAILY@0600 [facility] Last Admin: 10/21/18 08:14 Dose: 80 mg Nystatin (Nystatin Oral Suspension -) 500,000 units PO Q6HPO [facility] Last Admin: 10/21/18 08:28 Dose: 500,000 units Pantoprazole Sodium (Protonix -) 20 mg PO DAILY [facility] Last Admin: 10/21/18 10:25 Dose: 20 mg Thiamine HCl (Vitamin B1 Injection -) 200 mg IVPB DAILY [facility] Last Admin: 10/21/18 10:26 Dose: 200 mg IMAGING: * Head CT: neg * CTA chest: Small emboli R upper and lower lobes. No large central embolus seen. L effusion w/ compressive atelectasis and L pleural thickening. Findings in the abd suggestive of metastatic disease. * CXR: L basilar infiltrate, atelectasis, L pleural effusion * Echo: LV size, thickness, and function are normal. RV is normal in size and function. Trace pulm valvular regurgitation. No MR, no TR. No HD significant valvular aortic stenosis. No AR present. ASSESSMENT/PLAN: 53M with pmhx of COPD and continuous polysubstance abuse sent from [facility] for dyspnea and b/l LE edema found to have RLE DVT and R PE w/ incidental findings on imaging of multiple liver lesions and peritoneal carcinomatosis. #Multiple liver lesions + peritoneal carcinomatosis; etiology unclear at this time -Per onc, will likely need liver tissue biopsy for further assessment -CTAP w/ oral contrast pending; await results -Per IR, pt will need to be NPO and heparin held for at least 6 hours to procedure; consultation still pending -Per GI, pt would require colonoscopy/EGD r/o underlying GI malignancy however considering newly diagnosed PE will need to carefully weigh risks/benefits and determine timing accordingly #PE/DVT -Currently on heparin GTT -Will need to hold for liver tissue biopsy (if done) -Echo noted above; unremarkable. #Polysubstance Abuse; hx of benzo and heroin abuse -CIWA 0, no acute signs of withdrawal. Hold detox and cont to monitor -Banana bag ordered x1 today -Cont Methadone, dose confirmed. #Ppx DVT: currently on heparin ip GI: Protonix 20 mg PO QD FEN -NS @ 100 -recheck lytes in AM -Regular diet Dispo -cont to monitor on med-surg Visit type - Emergency Visit Emergency Visit: Yes ED Registration Date: 10/20/18 Care time: The patient presented to the Emergency Department on the above date and was hospitalized for further evaluation of their emergent condition. - New Patient This patient is new to me today: Yes Date on this admission: 10/21/18 - Critical Care Critical Care patient: No
--- NOTE | 2018-10-21 13:08 | ECHO ---
Name: LIZETH SHUKLA Exam:Adult Echocardiogram Study Date: 10/21/2018 09:19 AM Age: 53 yrs Reason For Study: R HEART STRAIN Height: 69 in Weight: 208 lb BSA: 2.1 m2 MMode/2D Measurements & Calculations IVSd: 1.1 cm Ao root diam: 3.6 cm LVIDd: 3.6 cm LA dimension: 2.2 cm LVIDs: 2.7 cm LVPWd: 0.92 cm EDV(Teich): 54.8 ml LVOT diam: 2.0 cm ESV(Teich): 26.4 ml LAV (MOD-bp): 23.2 ml Doppler Measurements & Calculations MV E max surinder: 67.9 cm/sec Ao V2 max: 120.8 cm/sec MV A max surinder: 77.6 cm/sec Ao max P.8 mmHg MV E/A: 0.87 MV dec time: 0.14 sec PRESLEY(V,D): 2.7 cm2 LV V1 max P.2 mmHg PA V2 max: 95.0 cm/sec LV V1 max: 102.8 cm/sec PA max P.6 mmHg Med Peak E' Surinder: 7.7 cm/sec PI Vmax: 149.3 cm/sec Med E/e': 8.8 Lat Peak E' Surinder: 12.1 cm/sec Lat E/e': 5.6 Procedure A complete two-dimensional transthoracic echocardiogram was performed (2D, M-mode, Doppler and color flow Doppler). Left Ventricle The left ventricular size, thickness and function are normal. The left ventricular ejection fraction is normal. Ejection Fraction = 55-60%. The left ventricular wall motion is normal. Right Ventricle The right ventricle is normal in size and function. Atria Normal left and right atrial size and function. Mitral Valve There is no mitral regurgitation noted. Tricuspid Valve No tricuspid regurgitation. There was insufficient TR detected to calculate RV systolic pressure. Aortic Valve The aortic valve is trileaflet. No hemodynamically significant valvular aortic stenosis. No aortic regurgitation is present. Pulmonic Valve Trace pulmonic valvular regurgitation. Great Vessels The aortic root is normal size. Pericardium/Pleura There is no pericardial effusion. Interpretation Summary The left ventricular size, thickness and function are normal The right ventricle is normal in size and function. Trace pulmonic valvular regurgitation. MD Refugio Smith 10/21/2018 01:07 PM
[2018-10-21 13:52] VITALS: BMI 29.0
[2018-10-21] MEDS ORDERED: PNEUMOC 13-VAL CONJ-DIP CRM/PF 0.5 ML DISP.SYRIN IM ONE (13:52)
[2018-10-21] MEDS ORDERED: PNEUMOCOCCAL 23 VACCINE 0.5 ML VIAL IM ONE (14:00)
--- NOTE | 2018-10-21 17:06 | PN.GI ---
GI Progress Note Subjective: No acute events No abdominal pain - Objective Vital Signs: Vital Signs Temperature 98 F 10/21/18 14:00 Pulse Rate 73 10/21/18 14:00 Respiratory Rate 20 10/21/18 14:00 Blood Pressure 115/78 10/21/18 14:00 O2 Sat by Pulse Oximetry (%) 94 L 10/21/18 10:40 Constitutional: Calm Eyes: No: Sclera Icterus Cardiovascular: Yes: Regular Rate and Rhythm Respiratory: Yes: CTA Bilaterally Gastrointestinal Inspection: No: Distention ...Auscultate: Yes: Normoactive Bowel Sounds ...Palpate: No: Hepatomegaly, Splenomegaly, Tenderness ...Percussion: No: Tympanitic Edema: Yes Edema: LLE: 2+, RLE: 3+ Neurological: Yes: Alert Labs: CBC, BMP 10/21/18 05:50 10/21/18 05:50 INR, PTT INR 1.16 (0.83-1.09) H 10/21/18 05:50 Hepatic Panel Total Bilirubin 0.4 mg/dL (0.2-1) 10/21/18 05:50 AST 46 U/L (15-37) H 10/21/18 05:50 ALT 31 U/L (13-61) 10/21/18 05:50 Alkaline Phosphatase 348 U/L (45-117) H 10/21/18 05:50 Albumin 2.9 g/dl (3.4-5.0) L 10/21/18 05:50 Laboratory Tests 10/20/18 10/20/18 10:26 12:39 Carcinoembryonic Ag 28.2 H CA 19-9 Antigen 04132 H Vitamin B12 1444 H Problem List - Problems (1) Liver lesion Assessment/Plan: With Marked elevation of CA 19-9 ? pancreaticobiliary source Await official read of CT scan A/P IR biopsy of liver lesions Onc following Code(s): K76.9 - LIVER DISEASE, UNSPECIFIED
[2018-10-21] MEDS: SODIUM CHLORIDE 1,000 ML IV SCH (17:57)
[2018-10-22] MEDS: METHADONE HCL 40 MG DISPERSABLE TABLET PO SCH (06:28)
[2018-10-22] MEDS: NYSTATIN 500,000 UNITS/5 ML SUSPENSION PO SCH ×6 (06:29→23:35)
[2018-10-22 07:04] LABS: HEMATOCRIT 41.7 % (35.4-49); HEMOGLOBIN 13.4 GM/dL (11.7-16.9); MCH 27.3 pg (25.7-33.7); MCHC 32.2 g/dl (32.0-35.9); MEAN CELL VOLUME 84.8 fl (80-96); MEAN PLT VOLUME 8.3 fl (7.5-11.1); PLATELET COUNT 276 K/MM3 (134-434); RBC 4.92 M/mm3 (4.00-5.60); RDW 15.1 % (11.9-15.9); WHITE BLOOD COUNT 8.4 K/mm3 (4.0-10.0)
[2018-10-22] MEDS: FOLIC ACID 1 MG TABLET (FP) PO SCH (09:58)
[2018-10-22] MEDS: PANTOPRAZOLE 20 MG TABLET (FP) PO SCH (09:59)
[2018-10-22] MEDS: THIAMINE HCL 200 MG/2 ML VIAL IVPB SCH (09:59)
--- NOTE | 2018-10-22 10:46 | PN ---
Teaching Attending Note Name of Resident: Renetta Qureshi ATTENDING PHYSICIAN STATEMENT I saw and evaluated the patient. I reviewed the resident's note and discussed the case with the resident. I agree with the resident's findings and plan as documented. SUBJECTIVE:states leg pain is improved. hesitant on going for liver biopsy because he wants to take care of 1 issue at a time. denies Cp, SOB< fever, chills, cough, hemoptysis OBJECTIVE: Last Vital Signs Temp Pulse Resp BP Pulse Ox 98.7 F 93 H 20 123/72 96 10/22/18 09:00 10/22/18 09:00 10/22/18 09:00 10/22/18 09:00 10/21/18 21:00 General NAD, flat affect, bitemporal wasting CV s1 S2 RRR no murmur/rub/gallop Lungs CTA B/L no wheezing/rales/rhonchi Abdomen soft +distended. +hepatomegaly Extremities 3+ RLE pitting edema ASSESSMENT AND PLAN: 53yo M with PMH COPD and continuous polysubstance abuse sent from [facility] for dyspnea and B/L LE edema was found to have RLE DVT and R PE. also on imaging he was found to have multiple liver lesions and peritoneal carcionmatosis. 1. Liver lesions with multiple lung nodles, peritoneal carcinomatosis with extensive intra-abdominal adenopathy- CT abdomen/pelvis showing pancreatic mas 4.6x3.2x2.8cm wiht multiple spleenic and liver lesions, also showing diffuse adenopathy. we also have CTA showing multiple pulmonary nodules. discussed results with patient. recommended to do invasive testing in the hospital due to requiring blood thinners going forward and that he can be monitored for bleeding risk while hospitalized. also stressed need to determine treatment plan as pancreatic cancer if this is what he has is an aggressive disease. will have oncology speak in more details regarding treatment options and prognosis. will reach out to GI to see if they want to do invasive testing while hospitalized at this time or if can be further managed as outpatient. GI and oncology on board 2. PE/DVT- increased risk in setting of suspected malignancy. hemodynamically stable. not hypoxic. echo no signs of heart strain, will cont heparin ggt at this time and plan to switch to NOAC on discharge. d/w him need for monitoring for bleeding while on this medication. 3. Continuous polysubstance abuse- CIWA 0. no signs of withdrawal. cont thiamine /folate/MVI. counselled on abstinence. not interested in inpatient rehab when medically cleared 4. Ex heroin user- on methadone. dose confirmed. 5. will place call to PMD to obtain collateral information 6. can d/c cardiac monitoring
--- NOTE | 2018-10-22 11:18 | PN ---
Physical Exam: SUBJECTIVE: Patient seen and examined at bedside. No acute events overnight. Pt has no symptomatic complaints. Rosemary diet, denies f/c, n/v, cp, sob. OBJECTIVE: Vital Signs Temperature 98.7 F 10/22/18 09:00 Pulse Rate 93 H 10/22/18 09:00 Respiratory Rate 20 10/22/18 09:00 Blood Pressure 123/72 10/22/18 09:00 O2 Sat by Pulse Oximetry (%) 96 10/21/18 21:00 GENERAL: AAOx3. NAD. Comfortable. HEENT: AT/NC. EOMI. Moist mucus membranes. NECK: Trachea midline, full range of motion, supple. LUNGS: Decreased breath sounds bilaterally. HEART: RRR. Normal S1, S2. No murmurs noted. ABDOMEN: Obese, soft, NT/ND. +BS. No masses noted. +Hepatomegaly EXTREMITIES: 2+ pulses, warm, well-perfused. 3+ pitting edema RLE. NEUROLOGICAL: Cranial nerves II through XII grossly intact. Normal speech, gait not observed. PSYCH: Flat affect. SKIN: Warm, dry, normal turgor, no rashes or lesions noted Laboratory Results - last 24 hr 10/21/18 10/22/18 10/22/18 20:00 06:27 06:27 WBC 8.4 RBC 4.92 Hgb 13.4 Hct 41.7 D MCV 84.8 MCH 27.3 MCHC 32.2 RDW 15.1 Plt Count 276 MPV 8.3 PTT (Actin FS) 37.5 H 34.7 Active Medications Folic Acid (Folic Acid -) 1 mg PO DAILY [facility] Last Admin: 10/22/18 09:58 Dose: 1 mg Heparin Sodium (Porcine) (Heparin -) 4,000 unit 40 unit/kg (4000 unit) IVPUSH PRN PRN PRN Reason: For aPTT 35 to 45 seconds Last Admin: 10/21/18 22:09 Dose: 4,000 unit Heparin Sodium (Porcine) (Heparin -) 8,000 unit 80 unit/kg (8000 unit) IVPUSH PRN PRN PRN Reason: aPTT <35 seconds Heparin Sodium/Dextrose (Heparin Infusion -) 25,000 units in 500 mls @ 35.924 mls/hr IVPB TITR [facility]; Protocol Last Admin: 10/21/18 22:10 Dose: 24 units/kg/hr, 47.899 mls/hr Sodium Chloride (Normal Saline -) 1,000 mls @ 100 mls/hr IV ASDIR [facility] Last Admin: 10/21/18 17:57 Dose: Not Given Lorazepam (Ativan -) 1 mg PO Q12H PRN PRN Reason: ANXIETY Methadone HCl (Dolophine -) 80 mg PO DAILY@0600 [facility] Last Admin: 10/22/18 06:28 Dose: 80 mg Nystatin (Nystatin Oral Suspension -) 500,000 units PO Q6HPO [facility] Last Admin: 10/22/18 06:29 Dose: 500,000 units Pantoprazole Sodium (Protonix -) 20 mg PO DAILY [facility] Last Admin: 10/22/18 09:59 Dose: 20 mg Thiamine HCl (Vitamin B1 Injection -) 200 mg IVPB DAILY [facility] Last Admin: 10/22/18 09:59 Dose: 200 mg IMAGING: * Head CT: neg * CTA chest: Small emboli R upper and lower lobes. No large central embolus seen. L effusion w/ compressive atelectasis and L pleural thickening. Findings in the abd suggestive of metastatic disease. * CXR: L basilar infiltrate, atelectasis, L pleural effusion * Echo: LV size, thickness, and function are normal. RV is normal in size and function. Trace pulm valvular regurgitation. No MR, no TR. No HD significant valvular aortic stenosis. No AR present. * CTAP: multiple hepatic masses c/w metastatic disease. Hypodense mass involving tail of pancreas strongly suspect primary maliganncy. Hypodense areas within spleen representing metastatic disease. Extensive intra-abd retroperitoneal, L inguinal LAD ASSESSMENT/PLAN: 53M with pmhx of COPD and continuous polysubstance abuse sent from [facility] for dyspnea and b/l LE edema found to have RLE DVT and R PE w/ incidental findings on imaging of multiple liver lesions and peritoneal carcinomatosis. #Multiple liver lesions + peritoneal carcinomatosis -Liver biopsy for this Thursday with IR -CTAP noted above; findings suggestive of metastatic disease -Per IR, pt will need to be NPO and heparin held for at least 6 hours to procedure -Per GI, pt would require colonoscopy/EGD r/o underlying GI malignancy however considering newly diagnosed PE will need to carefully weigh risks/benefits and determine timing accordingly; will await biopsy first -Per onc, await tissue biopsy for further treatment #PE/DVT -Currently on heparin GTT; will need to hold 6 hours prior to procedure (liver biopsy) on Thursday, October 25 -Echo noted above; unremarkable. #Polysubstance Abuse; hx of benzo and heroin abuse -CIWA 0, no acute signs of withdrawal. Hold detox and cont to monitor -Cont Methadone, dose confirmed. #Ppx DVT: currently on heparin drip GI: Protonix 20 mg PO QD FEN -PO hydration -recheck lytes in AM -Regular diet Dispo -cont to monitor on med-surg -Spoke to pt about CT scan findings of metastatic disease; he verbalized wanting to call family/friends first to discuss his next step. Offered pt if he would like us to speak to anyone regarding his diagnosis, however he declined at this time. Visit type - Emergency Visit Emergency Visit: Yes ED Registration Date: 10/20/18 Care time: The patient presented to the Emergency Department on the above date and was hospitalized for further evaluation of their emergent condition. - New Patient This patient is new to me today: No - Critical Care Critical Care patient: No
[2018-10-22] MEDS ORDERED: HEPARIN NA (PORCINE) 5,000 UNITS/ML 1ML VIAL IVPUSH PRN ×4 (12:13)
[2018-10-22] MEDS ORDERED: SODIUM CHLORIDE 1,000 ML IV SCH (12:13)
[2018-10-22] MEDS: HEPARIN INFUSION - 25,000 UNITS/500 ML INFUS.BAG IVPB SCH ×2 (12:53→18:58)
--- NOTE | 2018-10-22 16:09 | PN ---
Problem List - Problems (1) Liver lesion Code(s): K76.9 - LIVER DISEASE, UNSPECIFIED
[2018-10-22] MEDS ORDERED: MAG HYDROX/AL HYDROX/SIMETH 30 ML UNIT-DOSE CUP PO ONE ×2 (16:22→23:09)
--- NOTE | 2018-10-22 16:22 | PN.GI ---
GI Progress Note Subjective: Some abdominal discomfort No N/V Liver biopsy postponed until Thursday - Objective Vital Signs: Vital Signs Temperature 98.7 F 10/22/18 09:00 Pulse Rate 93 H 10/22/18 09:00 Respiratory Rate 20 10/22/18 09:00 Blood Pressure 123/72 10/22/18 09:00 O2 Sat by Pulse Oximetry (%) 96 10/21/18 21:00 Constitutional: Calm Eyes: No: Sclera Icterus Cardiovascular: Yes: Regular Rate and Rhythm Respiratory: Yes: CTA Bilaterally Gastrointestinal Inspection: No: Distention ...Auscultate: Yes: Normoactive Bowel Sounds ...Percussion: No: Tympanitic Edema: Yes Edema: LLE: 2+, RLE: 3+ Neurological: Yes: Alert Labs: CBC, BMP 10/22/18 06:27 10/21/18 05:50 INR, PTT INR 1.16 (0.83-1.09) H 10/21/18 05:50 Hepatic Panel Total Bilirubin 0.4 mg/dL (0.2-1) 10/21/18 05:50 AST 46 U/L (15-37) H 10/21/18 05:50 ALT 31 U/L (13-61) 10/21/18 05:50 Alkaline Phosphatase 348 U/L (45-117) H 10/21/18 05:50 Albumin 2.9 g/dl (3.4-5.0) L 10/21/18 05:50 Problem List - Problems (1) Liver lesion Assessment/Plan: Awaiting liver biopsy this coming Thursday Patient will be discharged on oral A/C. This will make having outpatient endoscopic evaluation difficult. Can place on clears for Thursday for possible procedures Thursday. Onc following Code(s): K76.9 - LIVER DISEASE, UNSPECIFIED
--- NOTE | 2018-10-22 16:55 | PN ---
Progress Note (short form) - Note Progress Note: Patient seen and examined Complains of abdominal discomfort CT of abdomen - tail of pancreas lesion with extensive liver mets Elevated Ca-19.9 > 14,000 Likely pancreatic ca with mets. Hypercoaguable state with DVT/P.E. part of spectrum. Last Vital Signs Temp Pulse Resp BP Pulse Ox 98.7 F 93 H 20 123/72 96 10/22/18 09:00 10/22/18 09:00 10/22/18 09:00 10/22/18 09:00 10/21/18 21:00 HEENT: BRANDIE, EOM Intact Oropharynx: No thrush, No mucositis Cor: RSR, No murmurs, No gallops Lungs: Clear to P&A Abd: Soft, Normal bowel sounds, No organomegaly Ext:4+ LE edema R>L Skin: Stasis LE's CBC, BMP 10/22/18 06:27 10/21/18 05:50 Current Medications Generic Name Dose Route Start Last Admin Trade Name Freq PRN Reason Stop Dose Admin Folic Acid 1 mg 10/23/18 10:00 Folic Acid - PO DAILY ALTA Heparin Sodium (Porcine) 4,000 unit 10/22/18 12:13 Heparin - 40 unit/kg (4000 unit) IVPUSH PRN PRN For aPTT 35 to 45 seconds Heparin Sodium (Porcine) 8,000 unit 10/22/18 12:13 Heparin - 80 unit/kg (8000 unit) IVPUSH PRN PRN aPTT <35 seconds Heparin Sodium/Dextrose 25,000 units in 500 mls @ 35.924 mls/hr 10/22/18 12: 13 10/22/18 12:53 Heparin Infusion - IVPB 20 units/kg/hr TITR ALTA 39.916 mls/hr Administration Protocol 18 UNITS/KG/HR Lorazepam 1 mg 10/22/18 12:13 Ativan - PO Q12H PRN ANXIETY Methadone HCl 80 mg 10/23/18 06:00 Dolophine - PO DAILY@0600 ALTA Nystatin 500,000 units 10/22/18 18:00 10/22/18 12:54 Nystatin Oral Suspension - PO 500,000 units Q6HPO ALTA Administration Pantoprazole Sodium 20 mg 10/23/18 10:00 Protonix - PO DAILY [facility] Thiamine HCl 200 mg 10/23/18 10:00 Vitamin B1 Injection - IVPB DAILY ALTA Impression: Likely pancreatic ca with liver mets DVT/P.E. A/C For liver biopsy.
[2018-10-23] MEDS: METHADONE HCL 40 MG DISPERSABLE TABLET PO SCH (06:15)
[2018-10-23] MEDS: NYSTATIN 500,000 UNITS/5 ML SUSPENSION PO SCH ×4 (06:16→23:35)
--- NOTE | 2018-10-23 07:30 | PN ---
Progress Note (short form) - Note Progress Note: c/o difficulty sleeping at night due to constant interruptions. c/o indigestion. denies CP, SOB, fever, chills, N/V/C/D. report leg pain improved Current Medications Generic Name Dose Route Start Last Admin Trade Name Kayla PRN Reason Stop Dose Admin Folic Acid 1 mg 10/23/18 10:00 Folic Acid - PO DAILY ALTA Heparin Sodium (Porcine) 4,000 unit 10/22/18 12:13 10/22/18 20:18 Heparin - 40 unit/kg (4000 unit) 10/25/18 04:00 4,000 unit IVPUSH Administration PRN PRN For aPTT 35 to 45 seconds Heparin Sodium (Porcine) 8,000 unit 10/22/18 12:13 Heparin - 80 unit/kg (8000 unit) 10/25/18 04:00 IVPUSH PRN PRN aPTT <35 seconds Heparin Sodium/Dextrose 25,000 units in 500 mls @ 35.924 mls/hr 10/22/18 12: 13 10/23/18 05:11 Heparin Infusion - IVPB 10/25/18 04:00 14.02 units/kg/hr TITR ALTA 28 mls/hr Titration Protocol 18 UNITS/KG/HR Lorazepam 1 mg 10/22/18 12:13 Ativan - PO Q12H PRN ANXIETY Methadone HCl 80 mg 10/23/18 06:00 10/23/18 06:15 Dolophine - PO 80 mg DAILY@0600 ALTA Administration Nystatin 500,000 units 10/22/18 18:00 10/23/18 06:16 Nystatin Oral Suspension - PO 500,000 units Q6HPO ALTA Administration Pantoprazole Sodium 20 mg 10/23/18 10:00 Protonix - PO DAILY ALTA Thiamine HCl 200 mg 10/23/18 10:00 Vitamin B1 Injection - IVPB DAILY [facility] Last Vital Signs Temp Pulse Resp BP Pulse Ox 98.9 F 79 18 124/74 96 10/23/18 05:00 10/23/18 05:00 10/23/18 05:00 10/23/18 05:00 10/22/18 21:00 General NAD, flat affect, bitemporal wasting CV s1 S2 RRR no murmur/rub/gallop Lungs CTA B/L no wheezing/rales/rhonchi Abdomen soft +distended. +hepatomegaly Extremities 1+ RLE pitting edema CBCD WBC 8.4 K/mm3 (4.0-10.0) 10/22/18 06:27 RBC 4.92 M/mm3 (4.00-5.60) 10/22/18 06:27 Hgb 13.4 GM/dL (11.7-16.9) 10/22/18 06:27 Hct 41.7 % (35.4-49) D 10/22/18 06:27 MCV 84.8 fl (80-96) 10/22/18 06:27 MCHC 32.2 g/dl (32.0-35.9) 10/22/18 06:27 RDW 15.1 % (11.9-15.9) 10/22/18 06:27 Plt Count 276 K/MM3 (134-434) 10/22/18 06:27 MPV 8.3 fl (7.5-11.1) 10/22/18 06:27 ASSESSMENT AND PLAN: 53yo M with PMH COPD and continuous polysubstance abuse sent from [facility] for dyspnea and B/L LE edema was found to have RLE DVT and R PE. also on imaging he was found to have multiple liver lesions and peritoneal carcionmatosis. 1. Liver lesions with multiple lung nodles, peritoneal carcinomatosis with extensive intra-abdominal adenopathy- CT abdomen/pelvis showing pancreatic mas 4.6x3.2x2.8cm with multiple splenic and liver lesions, also showing diffuse adenopathy. we also have CTA showing multiple pulmonary nodules. plan for liver bx on Thursday and EGD/colonscopy on thursday. GI and oncology on board 2. PE/DVT- increased risk in setting of suspected malignancy. on hep ggt. will switch to NOAC when no procedures are planned. 3. Continuous polysubstance abuse- CIWA 0. no signs of withdrawal. cont thiamine /folate/MVI. counselled on abstinence. not interested in inpatient rehab when medically cleared 4. insomnia- will give ambien prn. informed will not get script on discharge 5. indigestion- mylanta and pepcid 6. Ex heroin user- on methadone. dose confirmed. Visit type - Emergency Visit Emergency Visit: Yes ED Registration Date: 10/20/18 Care time: The patient presented to the Emergency Department on the above date and was hospitalized for further evaluation of their emergent condition. - New Patient This patient is new to me today: No - Critical Care Critical Care patient: No - Discharge Referral Referred to [facility] No
[2018-10-23 08:52] LABS: HEMATOCRIT 36.1 % (35.4-49); HEMOGLOBIN 11.9 GM/dL (11.7-16.9); MCH 27.6 pg (25.7-33.7); MCHC 32.8 g/dl (32.0-35.9); MEAN PLT VOLUME 8.3 fl (7.5-11.1); PLATELET COUNT 267 K/MM3 (134-434); RDW 14.8 % (11.9-15.9); WHITE BLOOD COUNT 6.8 K/mm3 (4.0-10.0)
[2018-10-23] MEDS ORDERED: MAG HYDROX/AL HYDROX/SIMETH -MYLANTA- ORAL SUSPENSION PO PRN (08:56)
[2018-10-23] MEDS: FOLIC ACID 1 MG TABLET (FP) PO SCH (09:38)
[2018-10-23] MEDS: THIAMINE HCL 200 MG/2 ML VIAL IVPB SCH (09:38)
[2018-10-23] MEDS: PANTOPRAZOLE 20 MG TABLET (FP) PO SCH (09:38)
[2018-10-23] MEDS ORDERED: MAGNESIUM CITRATE 300 ML BOTTLE PO ONE (13:00)
--- NOTE | 2018-10-23 13:00 | PN.GI ---
GI Progress Note Subjective: GI coverage complains of constipation, need 10 dulcolax to be able to go,no abdominal pain, tolerating diet - Objective Vital Signs: Vital Signs Temperature 98.3 F 10/23/18 08:47 Pulse Rate 83 10/23/18 08:47 Respiratory Rate 18 10/23/18 08:47 Blood Pressure 104/66 10/23/18 08:47 O2 Sat by Pulse Oximetry (%) 93 L 10/23/18 09:00 Constitutional: Well Nourished Eyes: Yes: Conjunctiva Clear HENT: Yes: Atraumatic Neck: Yes: Supple Cardiovascular: Yes: Regular Rate and Rhythm Respiratory: Yes: CTA Bilaterally ...Palpate: Yes: Soft. No: Firm/Rigid, Guarding, Hepatomegaly, Mass, Pulsatile Mass, Splenomegaly, Tenderness Labs: CBC, BMP 10/23/18 07:00 10/21/18 05:50 INR, PTT INR 1.16 (0.83-1.09) H 10/21/18 05:50 Problem List - Problems (1) Metastases to the liver Assessment/Plan: 4 cm pancreatic taill mass R> await liver biopsy Thursday--PT/INR--normal citroma x1 Miralax Code(s): C78.7 - SECONDARY MALIG NEOPLASM OF LIVER AND INTRAHEPATIC BILE DUCT
[2018-10-23] MEDS: HEPARIN INFUSION - 25,000 UNITS/500 ML INFUS.BAG IVPB SCH ×2 (15:48→20:35)
[2018-10-23] MEDS: ZOLPIDEM TARTRATE 5 MG TABLET PO PRN (21:24)
[2018-10-24] MEDS: METHADONE HCL 40 MG DISPERSABLE TABLET PO SCH (06:03)
[2018-10-24] MEDS: NYSTATIN 500,000 UNITS/5 ML SUSPENSION PO SCH ×3 (06:03→18:34)
[2018-10-24 08:09] LABS: HEMATOCRIT 39.8 % (35.4-49); MCH 27.5 pg (25.7-33.7); MCHC 32.7 g/dl (32.0-35.9); MEAN CELL VOLUME 84.1 fl (80-96); RBC 4.73 M/mm3 (4.00-5.60); RDW 15.4 % (11.9-15.9); WHITE BLOOD COUNT 7.6 K/mm3 (4.0-10.0)
--- NOTE | 2018-10-24 08:49 | PN ---
Teaching Attending Note Name of Resident: Renetta Qureshi ATTENDING PHYSICIAN STATEMENT I saw and evaluated the patient. I reviewed the resident's note and discussed the case with the resident. I agree with the resident's findings and plan as documented. SUBJECTIVE:c/o diffuse dull abdominal pain, now stating been present since arrival. no BM in over 7 days. denies CP, SOB, fever, chills, N/V/ OBJECTIVE: Last Vital Signs Temp Pulse Resp BP Pulse Ox 98.7 F 76 18 105/63 93 L 10/24/18 06:00 10/24/18 06:00 10/24/18 06:00 10/24/18 06:00 10/23/18 21:00 General NAD, flat affect, bitemporal wasting CV s1 S2 RRR no murmur/rub/gallop Lungs CTA B/L no wheezing/rales/rhonchi Abdomen soft +distended. +hepatomegaly Extremities trace RLE pitting edema ASSESSMENT AND PLAN: 53yo M with PMH COPD and continuous polysubstance abuse sent from [facility] for dyspnea and B/L LE edema was found to have RLE DVT and R PE. also on imaging he was found to have multiple liver lesions and peritoneal carcionmatosis. 1. Liver lesions with multiple lung nodules, peritoneal carcinomatosis with extensive intra-abdominal adenopathy- CT abdomen/pelvis showing pancreatic mas 4.6x3.2x2.8cm with multiple splenic and liver lesions, also showing diffuse adenopathy. we also have CTA showing multiple pulmonary nodules. plan for liver bx tomorrow and EGD/colonscopy on thursday. GI and oncology on board 2. Constipation- likely opiate induced. no response to citroma. refusing methylnatrexone (claims it reverses his methadone). will start lactulose. cont stool softeners 3. PE/DVT- increased risk in setting of suspected malignancy. on hep ggt. will switch to NOAC when no procedures are planned. 4. Continuous polysubstance abuse- CIWA 0. no signs of withdrawal. cont thiamine /folate/MVI. counselled on abstinence. not interested in inpatient rehab when medically cleared 5. insomnia- will give ambien prn. informed will not get script on discharge 6. indigestion- mylanta and pepcid 7. Ex heroin user- on methadone. dose confirmed.
[2018-10-24 08:59] LABS: PLATELET COUNT 314 K/MM3 (134-434)
[2018-10-24] MEDS: LACTULOSE 20 GM/30 ML UDC (FOR ORAL USE ONLY) PO SCH ×4 (09:29→21:09)
[2018-10-24] MEDS: FOLIC ACID 1 MG TABLET (FP) PO SCH (09:29)
[2018-10-24] MEDS: PANTOPRAZOLE 20 MG TABLET (FP) PO SCH (09:29)
[2018-10-24] MEDS: THIAMINE HCL 200 MG/2 ML VIAL IVPB SCH (09:29)
--- NOTE | 2018-10-24 10:05 | PN ---
Physical Exam: SUBJECTIVE: Patient seen and examined at bedside. No acute events overnight. Rosemary PO diet, but still no bowel movement. Denies f/c, cp, sob, abd pain. OBJECTIVE: Vital Signs Temperature 98.7 F 10/24/18 06:00 Pulse Rate 76 10/24/18 06:00 Respiratory Rate 18 10/24/18 06:00 Blood Pressure 105/63 10/24/18 06:00 O2 Sat by Pulse Oximetry (%) 93 L 10/23/18 21:00 GENERAL: AAOx3. NAD. Comfortable. HEENT: AT/NC. EOMI. Moist mucus membranes. NECK: Trachea midline, full range of motion, supple. LUNGS: Decreased breath sounds bilaterally. HEART: RRR. Normal S1, S2. No murmurs noted. ABDOMEN: Obese, soft, NT/ND. +BS. No masses noted. +Hepatomegaly EXTREMITIES: 2+ pulses, warm, well-perfused. 3+ pitting edema RLE. NEUROLOGICAL: Cranial nerves II through XII grossly intact. Normal speech, gait not observed. PSYCH: Flat affect. SKIN: Warm, dry, normal turgor, no rashes or lesions noted Laboratory Results - last 24 hr 10/23/18 10/23/18 10/23/18 07:00 11:31 20:45 WBC RBC Hgb Hct MCV MCH MCHC RDW Plt Count MPV PTT (Actin FS) 125.7 H 83.5 H 47.4 H 10/24/18 10/24/18 04:00 07:45 WBC 7.6 RBC 4.73 Hgb 13.0 Hct 39.8 MCV 84.1 MCH 27.5 MCHC 32.7 RDW 15.4 Plt Count 314 MPV 8.0 PTT (Actin FS) 48.1 H Active Medications Al Hydroxide/Mg Hydroxide (Mylanta Suspension -) 30 ml PO Q6HPO PRN PRN Reason: indigestion Folic Acid (Folic Acid -) 1 mg PO DAILY ALTA Last Admin: 10/24/18 09:29 Dose: 1 mg Heparin Sodium (Porcine) (Heparin -) 4,000 unit 40 unit/kg (4000 unit) IVPUSH PRN PRN PRN Reason: For aPTT 35 to 45 seconds Stop: 10/25/18 04:00 Last Admin: 10/22/18 20:18 Dose: 4,000 unit Heparin Sodium (Porcine) (Heparin -) 8,000 unit 80 unit/kg (8000 unit) IVPUSH PRN PRN PRN Reason: aPTT <35 seconds Stop: 10/25/18 04:00 Heparin Sodium/Dextrose (Heparin Infusion -) 25,000 units in 500 mls @ 35.924 mls/hr IVPB TITR [facility]; Protocol Stop: 10/25/18 04:00 Last Admin: 10/23/18 20:35 Dose: 12.02 units/kg/hr, 24 mls/hr Lactulose (Cephulac (Oral Use)) 20 gm PO QID [facility] Last Admin: 10/24/18 09:29 Dose: 20 gm Lorazepam (Ativan -) 1 mg PO Q12H PRN PRN Reason: ANXIETY Methadone HCl (Dolophine -) 80 mg PO DAILY@0600 [facility] Last Admin: 10/24/18 06:03 Dose: 80 mg Nystatin (Nystatin Oral Suspension -) 500,000 units PO Q6HPO [facility] Last Admin: 10/24/18 06:03 Dose: 500,000 units Pantoprazole Sodium (Protonix -) 20 mg PO DAILY [facility] Last Admin: 10/24/18 09:29 Dose: 20 mg Thiamine HCl (Vitamin B1 Injection -) 200 mg IVPB DAILY [facility] Last Admin: 10/24/18 09:29 Dose: 200 mg Zolpidem Tartrate (Ambien -) 10 mg PO HS PRN PRN Reason: INSOMNIA Last Admin: 10/23/18 21:24 Dose: 10 mg IMAGING: * Head CT: neg * CTA chest: Small emboli R upper and lower lobes. No large central embolus seen. L effusion w/ compressive atelectasis and L pleural thickening. Findings in the abd suggestive of metastatic disease. * CXR: L basilar infiltrate, atelectasis, L pleural effusion * Echo: LV size, thickness, and function are normal. RV is normal in size and function. Trace pulm valvular regurgitation. No MR, no TR. No HD significant valvular aortic stenosis. No AR present. * CTAP: multiple hepatic masses c/w metastatic disease. Hypodense mass involving tail of pancreas strongly suspect primary maliganncy. Hypodense areas within spleen representing metastatic disease. Extensive intra-abd retroperitoneal, L inguinal LAD ASSESSMENT/PLAN: 53M with pmhx of COPD and continuous polysubstance abuse sent from [facility] for dyspnea and b/l LE edema found to have RLE DVT and R PE w/ incidental findings on imaging of multiple liver lesions and peritoneal carcinomatosis. #Multiple liver lesions + peritoneal carcinomatosis -Liver biopsy for this Thursday with IR -CTAP noted above; findings suggestive of metastatic disease -Per IR, pt will need to be NPO and heparin held for at least 6 hours to procedure -Per GI, pt would require colonoscopy/EGD r/o underlying GI malignancy however considering newly diagnosed PE will need to carefully weigh risks/benefits and determine timing accordingly; possible scope this Thursday, await further GI recs -Per onc, await tissue biopsy for further treatment #PE/DVT -Currently on heparin GTT; will need to hold 6 hours prior to procedure (liver biopsy) on Thursday, October 25 -Echo noted above; unremarkable. -Can switch to PO NOac after discharge #Constipation; no BM since admission -trial on Lactulose 20 QID -monitor for BM #Polysubstance Abuse; hx of benzo and heroin abuse -CIWA 0, no acute signs of withdrawal. Hold detox and cont to monitor -Cont Methadone, dose confirmed. #Ppx DVT: currently on heparin drip GI: Protonix 20 mg PO QD FEN -PO hydration -recheck lytes in AM -Regular diet Dispo -cont to monitor on med-surg Visit type - Emergency Visit Emergency Visit: Yes ED Registration Date: 10/20/18 Care time: The patient presented to the Emergency Department on the above date and was hospitalized for further evaluation of their emergent condition. - New Patient This patient is new to me today: No - Critical Care Critical Care patient: No
[2018-10-24] MEDS: HEPARIN INFUSION - 25,000 UNITS/500 ML INFUS.BAG IVPB SCH ×2 (18:49→23:37)
[2018-10-24] MEDS: ZOLPIDEM TARTRATE 5 MG TABLET PO PRN (21:09)
[2018-10-25] MEDS: NYSTATIN 500,000 UNITS/5 ML SUSPENSION PO SCH ×4 (00:33→18:19)
[2018-10-25] MEDS: METHADONE HCL 40 MG DISPERSABLE TABLET PO SCH (06:13)
[2018-10-25 10:01] LABS: HEMATOCRIT 36.4 % (35.4-49); HEMOGLOBIN 11.9 GM/dL (11.7-16.9); MCH 27.6 pg (25.7-33.7); MCHC 32.8 g/dl (32.0-35.9); MEAN CELL VOLUME 84.3 fl (80-96); MEAN PLT VOLUME 8.5 fl (7.5-11.1); RBC 4.32 M/mm3 (4.00-5.60); RDW 15.3 % (11.9-15.9); WHITE BLOOD COUNT 5.9 K/mm3 (4.0-10.0)
[2018-10-25 10:08] LABS: PLATELET COUNT 270 K/MM3 (134-434)
[2018-10-25] MEDS: FOLIC ACID 1 MG TABLET (FP) PO SCH (10:28)
[2018-10-25] MEDS: LACTULOSE 20 GM/30 ML UDC (FOR ORAL USE ONLY) PO SCH ×4 (10:28→23:25)
[2018-10-25] MEDS: PANTOPRAZOLE 20 MG TABLET (FP) PO SCH (10:28)
[2018-10-25] MEDS: THIAMINE HCL 200 MG/2 ML VIAL IVPB SCH (10:48)
[2018-10-25] MEDS ORDERED: ACETAMINOPHEN 1000 MG/100 ML VIAL (NON FORMULARY) IVPB ONE (10:51)
--- NOTE | 2018-10-25 14:49 | PN ---
Physical Exam: SUBJECTIVE: Patient seen and examined at bedside. Admits to having multiple bowel movements since yesterday, but denies bloody. Admits to mild abd pain and dry mouth. Denies cp, sob, n/v. Rosemary PO diet. OBJECTIVE: Vital Signs Temperature 98.2 F 10/25/18 14:48 Pulse Rate 82 10/25/18 14:48 Respiratory Rate 18 10/25/18 14:48 Blood Pressure 122/73 10/25/18 14:48 O2 Sat by Pulse Oximetry (%) 100 10/25/18 12:46 GENERAL: AAOx3. NAD. Comfortable. HEENT: AT/NC. EOMI. Moist mucus membranes. NECK: Trachea midline, full range of motion, supple. LUNGS: Decreased breath sounds bilaterally. HEART: RRR. Normal S1, S2. No murmurs noted. ABDOMEN: Obese, soft, NT/ND. +BS. No masses noted. +Hepatomegaly EXTREMITIES: 2+ pulses, warm, well-perfused. 3+ pitting edema RLE. NEUROLOGICAL: Cranial nerves II through XII grossly intact. Normal speech, gait not observed. PSYCH: Flat affect. SKIN: Warm, dry, normal turgor, no rashes or lesions noted Laboratory Results - last 24 hr 10/24/18 10/24/18 10/25/18 16:40 23:00 06:00 WBC 5.9 RBC 4.32 Hgb 11.9 Hct 36.4 MCV 84.3 MCH 27.6 MCHC 32.8 RDW 15.3 Plt Count 270 MPV 8.5 PTT (Actin FS) 44.5 H 35.2 10/25/18 06:00 WBC RBC Hgb Hct MCV MCH MCHC RDW Plt Count MPV PTT (Actin FS) 32.2 Active Medications Al Hydroxide/Mg Hydroxide (Mylanta Suspension -) 30 ml PO Q6HPO PRN PRN Reason: indigestion Folic Acid (Folic Acid -) 1 mg PO DAILY [facility] Last Admin: 10/25/18 10:28 Dose: Not Given Lactulose (Cephulac (Oral Use)) 20 gm PO QID [facility] Last Admin: 10/25/18 10:28 Dose: Not Given Lorazepam (Ativan -) 1 mg PO Q12H PRN PRN Reason: ANXIETY Methadone HCl (Dolophine -) 80 mg PO DAILY@0600 [facility] Last Admin: 10/25/18 06:13 Dose: 80 mg Nystatin (Nystatin Oral Suspension -) 500,000 units PO Q6HPO [facility] Last Admin: 10/25/18 06:10 Dose: Not Given Pantoprazole Sodium (Protonix -) 20 mg PO DAILY [facility] Last Admin: 10/25/18 10:28 Dose: Not Given Thiamine HCl (Vitamin B1 Injection -) 200 mg IVPB DAILY [facility] Last Admin: 10/25/18 10:48 Dose: 200 mg Zolpidem Tartrate (Ambien -) 10 mg PO HS PRN PRN Reason: INSOMNIA Last Admin: 10/24/18 21:09 Dose: 10 mg IMAGING: * Head CT: neg * CTA chest: Small emboli R upper and lower lobes. No large central embolus seen. L effusion w/ compressive atelectasis and L pleural thickening. Findings in the abd suggestive of metastatic disease. * CXR: L basilar infiltrate, atelectasis, L pleural effusion * Echo: LV size, thickness, and function are normal. RV is normal in size and function. Trace pulm valvular regurgitation. No MR, no TR. No HD significant valvular aortic stenosis. No AR present. * CTAP: multiple hepatic masses c/w metastatic disease. Hypodense mass involving tail of pancreas strongly suspect primary maliganncy. Hypodense areas within spleen representing metastatic disease. Extensive intra-abd retroperitoneal, L inguinal LAD ASSESSMENT/PLAN: 53M with pmhx of COPD and continuous polysubstance abuse sent from [facility] for dyspnea and b/l LE edema found to have RLE DVT and R PE w/ incidental findings on imaging of multiple liver lesions and peritoneal carcinomatosis. #Multiple liver lesions + peritoneal carcinomatosis -Liver biopsy today with IR; await bx results -CTAP noted above; findings suggestive of metastatic disease -Per GI, recommend MRCP w/ contrast. Likely EGD/colonoscopy this admission as pt is on IV heparin. Will give PO NOAc upon discharge for continuation of AC. -Per onc, await tissue biopsy for further treatment #PE/DVT -Resume heparin gtt after biopsy -Echo noted above; unremarkable. -Can switch to PO NOAc after discharge #Constipation; Resolved. #Polysubstance Abuse; hx of benzo and heroin abuse -CIWA 0, no acute signs of withdrawal. Hold detox and cont to monitor -Cont Methadone, dose confirmed. #Ppx DVT: resume heparin gtt after liver biopsy GI: Protonix 20 mg PO QD FEN -PO hydration -recheck lytes in AM -Regular diet Dispo -cont to monitor on med-surg Visit type - Emergency Visit Emergency Visit: Yes ED Registration Date: 10/20/18 Care time: The patient presented to the Emergency Department on the above date and was hospitalized for further evaluation of their emergent condition. - New Patient This patient is new to me today: No - Critical Care Critical Care patient: No
--- NOTE | 2018-10-25 15:01 | PN ---
Teaching Attending Note Name of Resident: Renetta Qureshi ATTENDING PHYSICIAN STATEMENT I saw and evaluated the patient. I reviewed the resident's note and discussed the case with the resident. I agree with the resident's findings and plan as documented. SUBJECTIVE:c/o diffuse abdominal pain. states had this for some time prior to arrival. not in 1 specific location, more diffuse nagging pain. not related to eating and no relief with BM. denies CP, SOB, fever, chills, N/V/C/D OBJECTIVE: Last Vital Signs Temp Pulse Resp BP Pulse Ox 98.2 F 82 18 122/73 100 10/25/18 14:48 10/25/18 14:48 10/25/18 14:48 10/25/18 14:48 10/25/18 12:46 General NAD, flat affect, bitemporal wasting CV s1 S2 RRR no murmur/rub/gallop Lungs CTA B/L no wheezing/rales/rhonchi Abdomen soft NT/ND Extremities trace RLE pitting edema ASSESSMENT AND PLAN: 53yo M with PMH COPD and continuous polysubstance abuse sent from [facility] for dyspnea and B/L LE edema was found to have RLE DVT and R PE. also on imaging he was found to have multiple liver lesions and peritoneal carcionmatosis. 1. Liver lesions with multiple lung nodules, peritoneal carcinomatosis with extensive intra-abdominal adenopathy- CT abdomen/pelvis showing pancreatic mass 4.6x3.2x2.8cm with multiple splenic and liver lesions, also showing diffuse adenopathy. we also have CTA showing multiple pulmonary nodules. NPO liver bx today. will confirm with GI plan to do EGD/colonscopy on thursday. GI and oncology on board 2. Constipation- likely opiate induced. multiple BM with lactulose. will reduce and titrate to 1 BM/day 3. Abdominal pain- very non specific. likely in relation to malignancy and enlarging liver capsule. oneyda start tylenol, will avoid NSAIDS due to contaminate anticoagulation. if no improvement will consider pain management eval as pt is currently on methadone and dose may need adjustment. 3. PE/DVT- increased risk in setting of suspected malignancy. on hep ggt. will switch to NOAC when no procedures are planned. oneyda liekly require life long anticoagulation 4. Continuous polysubstance abuse- CIWA 0. no signs of withdrawal. cont thiamine /folate/MVI. counselled on abstinence. not interested in inpatient rehab when medically cleared 5. insomnia- will give ambien prn. informed will not get script on discharge 6. indigestion- mylanta and pepcid 7. Ex heroin user- on methadone. dose confirmed.
[2018-10-25] MEDS ORDERED: HEPARIN NA (PORCINE) 5,000 UNITS/ML 1ML VIAL IVPUSH PRN ×4 (15:44→21:01)
[2018-10-25] MEDS ORDERED: HEPARIN - 25,000 UNIT in SODIUM CHLORIDE 495 ML IV SCH (15:45)
--- NOTE | 2018-10-25 16:20 | PN.GI ---
GI Progress Note Subjective: Pt seen/examined at bedside, just had liver biopsy. Reporting increase in abdominal pain, mostly epigastric/periumbilical nonradiating, states similar to admission however slightly worsened, denies n/v. Had few bms yesterday, none yet today. Tolerating regular diet. - Objective Vital Signs: Vital Signs Temperature 98.2 F 10/25/18 14:48 Pulse Rate 82 10/25/18 14:48 Respiratory Rate 18 10/25/18 14:48 Blood Pressure 122/73 10/25/18 14:48 O2 Sat by Pulse Oximetry (%) 100 10/25/18 12:46 Constitutional: Well Nourished, No Distress, Calm Cardiovascular: Yes: WNL, Regular Rate and Rhythm Respiratory: Yes: WNL, Regular, CTA Bilaterally ...Palpate: Yes: Other (Abd soft, mildly tender in periumbilical region, non distended) Labs: CBC, BMP 10/25/18 06:00 10/21/18 05:50 INR, PTT INR 1.16 (0.83-1.09) H 10/21/18 05:50 Problem List - Problems (1) Liver lesion Assessment/Plan: 53yo male h/o COPD, polysubstance abuse (etoh, heroin on methadone) presenting with dyspnea and LE edema with CTA revealing liver lesions and possible peritoneal carcinomatosis concerning for metastatic disease of unknown primary s /p liver biopsy. CT imaging revealing pancreatic tail mass concerning for malignancy. Elevated CEA and CA19-9. -Await results of liver biopsy (expedite if possible) -Repeat abd xray today -Likely component of constipation contributing to abdominal pain - titrate lactulose as needed, and consider adding miralax to help regulate bowel pattern -Further recommendations per oncology Discussed with medicine and oncology teams Code(s): K76.9 - LIVER DISEASE, UNSPECIFIED
[2018-10-25] MEDS ORDERED: morphine SULFATE 4 MG/ML VIAL IVPUSH ONE (20:14)
--- NOTE | 2018-10-25 20:23 | PN ---
Progress Note (short form) - Note Progress Note: Patient seen and examined Denies any complaints Last Vital Signs Temp Pulse Resp BP Pulse Ox 98.7 F 82 20 108/61 100 10/25/18 16:30 10/25/18 16:30 10/25/18 16:30 10/25/18 16:30 10/25/18 12:46 Cor: RSR, No murmurs, No gallops Lungs: Clear to P&A Abd: Soft, Normal bowel sounds, No organomegaly Ext:No significant edema Labs/Meds reviewed A/P 53yo male h/o COPD, polysubstance abuse (etoh, heroin on methadone) presenting with dyspnea and LE edema with CTA revealing liver lesions and possible peritoneal carcinomatosis concerning for metastatic disease of unknown primary s /p liver biopsy. CT imaging revealing pancreatic tail mass concerning for malignancy. Elevated CEA and markedly elevated CA19-9. -Await results of liver biopsy Patient states he lives close to [facility] in the [place] --to coordinate oncology care at [facility],
[2018-10-25] MEDS ORDERED: HEPARIN INFUSION - 25,000 UNITS/500 ML INFUS.BAG IVPB SCH (21:00)
[2018-10-25] MEDS ORDERED: ACETAMINOPHEN 325 MG TABLET (FP) ONE (21:47)
[2018-10-25] MEDS ORDERED: ACETAMINOPHEN 325 MG TABLET (FP) PO ONE (21:59)
[2018-10-25] MEDS: ZOLPIDEM TARTRATE 5 MG TABLET PO PRN (22:02)
[2018-10-26] MEDS: NYSTATIN 500,000 UNITS/5 ML SUSPENSION PO SCH ×4 (00:52→17:47)
[2018-10-26] MEDS ORDERED: HEPARIN NA (PORCINE) 5,000 UNITS/ML 1ML VIAL IVPUSH PRN ×2 (04:47)
[2018-10-26] MEDS: HEPARIN - 25,000 UNIT in SODIUM CHLORIDE 495 ML IV SCH ×2 (05:02→05:08)
[2018-10-26] MEDS: METHADONE HCL 40 MG DISPERSABLE TABLET PO SCH (05:38)
[2018-10-26 07:54] LABS: HEMATOCRIT 37.2 % (35.4-49); HEMOGLOBIN 12.1 GM/dL (11.7-16.9); MCH 27.5 pg (25.7-33.7); MCHC 32.7 g/dl (32.0-35.9); MEAN CELL VOLUME 84.3 fl (80-96); MEAN PLT VOLUME 8.2 fl (7.5-11.1); PLATELET COUNT 271 K/MM3 (134-434); RBC 4.41 M/mm3 (4.00-5.60); RDW 15.4 % (11.9-15.9); WHITE BLOOD COUNT 7.2 K/mm3 (4.0-10.0)
[2018-10-26] MEDS: ACETAMINOPHEN 650 MG/20.3 ML ORAL SOLUTION (CUPS) PO PRN ×2 (08:49→18:29)
[2018-10-26] MEDS: LACTULOSE 20 GM/30 ML UDC (FOR ORAL USE ONLY) PO SCH ×4 (09:20→22:21)
[2018-10-26] MEDS: PANTOPRAZOLE 20 MG TABLET (FP) PO SCH (09:28)
[2018-10-26] MEDS: FOLIC ACID 1 MG TABLET (FP) PO SCH (09:28)
[2018-10-26] MEDS: THIAMINE HCL 200 MG/2 ML VIAL IVPB SCH (09:29)
[2018-10-26] MEDS: LORazepam 0.5 MG TABLET PO PRN (10:32)
--- NOTE | 2018-10-26 11:25 | PN ---
Physical Exam: SUBJECTIVE: Patient seen and examined at bedside. No acute events overnight. Admits to aching abdominal pain. Has had 2 bowel movements yesterday. Denies chest pain, sob. Rosemary PO diet. Denies n/v. RLE swelling improved. OBJECTIVE: Vital Signs Temperature 98 F 10/26/18 10:00 Pulse Rate 82 10/26/18 06:07 Respiratory Rate 18 10/26/18 10:00 Blood Pressure 106/54 L 10/26/18 10:00 O2 Sat by Pulse Oximetry (%) 95 10/26/18 09:00 GENERAL: AAOx3. NAD. Comfortable. HEENT: AT/NC. EOMI. Moist mucus membranes. NECK: Trachea midline, full range of motion, supple. LUNGS: Decreased breath sounds bilaterally. HEART: RRR. Normal S1, S2. No murmurs noted. ABDOMEN: Obese, soft, NT/ND. +BS. No masses noted. +Hepatomegaly EXTREMITIES: 2+ pulses, warm, well-perfused. Improved RLE swelling. NEUROLOGICAL: Cranial nerves II through XII grossly intact. Normal speech, gait not observed. PSYCH: Flat affect. SKIN: Warm, dry, normal turgor, no rashes or lesions noted Laboratory Results - last 24 hr 10/26/18 10/26/18 10/26/18 00:30 06:40 06:40 WBC 7.2 RBC 4.41 Hgb 12.1 Hct 37.2 MCV 84.3 MCH 27.5 MCHC 32.7 RDW 15.4 Plt Count 271 MPV 8.2 PTT (Actin FS) 32.9 162.8 H Active Medications Acetaminophen (Tylenol Oral Solution -) 650 mg PO Q6H PRN PRN Reason: PAIN LEVEL 6-10 Last Admin: 10/26/18 08:49 Dose: 650 mg Al Hydroxide/Mg Hydroxide (Mylanta Suspension -) 30 ml PO Q6HPO PRN PRN Reason: indigestion Folic Acid (Folic Acid -) 1 mg PO DAILY ALTA Last Admin: 10/26/18 09:28 Dose: 1 mg Heparin Sodium (Porcine) (Heparin -) 1,000 unit IVPUSH PRN PRN PRN Reason: Heparin Heparin Sodium (Porcine) (Heparin -) 5,000 unit IVPUSH PRN PRN PRN Reason: Heparin Heparin Sodium (Porcine) 25, (000 unit/ Sodium Chloride) 500 mls @ 20 mls/hr IV TITR ALTA; Protocol Last Admin: 10/26/18 05:08 Dose: 1,150 unit/hr, 23 mls/hr Lactulose (Cephulac (Oral Use)) 20 gm PO QID [facility] Last Admin: 10/26/18 09:20 Dose: Not Given Lorazepam (Ativan -) 1 mg PO Q12H PRN PRN Reason: ANXIETY Last Admin: 10/26/18 10:32 Dose: 1 mg Methadone HCl (Dolophine -) 80 mg PO DAILY@0600 [facility] Last Admin: 10/26/18 05:38 Dose: 80 mg Nystatin (Nystatin Oral Suspension -) 500,000 units PO Q6HPO [facility] Last Admin: 10/26/18 05:40 Dose: Not Given Pantoprazole Sodium (Protonix -) 20 mg PO DAILY [facility] Last Admin: 10/26/18 09:28 Dose: 20 mg Thiamine HCl (Vitamin B1 Injection -) 200 mg IVPB DAILY [facility] Last Admin: 10/26/18 09:29 Dose: 200 mg Zolpidem Tartrate (Ambien -) 10 mg PO HS PRN PRN Reason: INSOMNIA Last Admin: 10/25/18 22:02 Dose: 10 mg IMAGING: * Head CT: neg * CTA chest: Small emboli R upper and lower lobes. No large central embolus seen. L effusion w/ compressive atelectasis and L pleural thickening. Findings in the abd suggestive of metastatic disease. * CXR: L basilar infiltrate, atelectasis, L pleural effusion * Echo: LV size, thickness, and function are normal. RV is normal in size and function. Trace pulm valvular regurgitation. No MR, no TR. No HD significant valvular aortic stenosis. No AR present. * CTAP: multiple hepatic masses c/w metastatic disease. Hypodense mass involving tail of pancreas strongly suspect primary maliganncy. Hypodense areas within spleen representing metastatic disease. Extensive intra-abd retroperitoneal, L inguinal LAD * Abd xray: pending * Liver biopsy: pending ASSESSMENT/PLAN: 53M with pmhx of COPD and continuous polysubstance abuse sent from [facility] for dyspnea and b/l LE edema found to have RLE DVT and R PE w/ incidental findings on imaging of multiple liver lesions and peritoneal carcinomatosis. #Multiple liver lesions + peritoneal carcinomatosis -liver biopsy done yesterday; await biopsy results -CTAP noted above; findings suggestive of metastatic disease -Per GI, will need EGD/colonoscopy. Will give PO NOAc upon discharge for continuation of AC. -Per onc, await tissue biopsy for further treatment -Will contact heme/onc service at [facility] for outpatient follow up #PE/DVT -Cont IV Heparin -Echo noted above; unremarkable. -Can switch to PO NOAc #Constipation; Resolved. #Polysubstance Abuse; hx of benzo and heroin abuse -CIWA 0, no acute signs of withdrawal. Hold detox and cont to monitor -Cont Methadone, dose confirmed. #Ppx DVT: IV Heparin, can switch to Eliquis upon discharge GI: Protonix 20 mg PO QD FEN -PO hydration -recheck lytes in AM -Regular diet Dispo -cont to monitor on med-surg -Pt states he lives in the [place] and would like to follow up with heme/onc as an outpatient near [facility] He also is doing inpatient rehab at [facility] and would like to return to [facility] to complete his 30-day rehab as it is a requirement to complete rehab in order to stay at his current home in the [place]. Spoke to CM, pending bed availability at [facility]. Visit type - Emergency Visit Emergency Visit: No - New Patient This patient is new to me today: No - Critical Care Critical Care patient: No
[2018-10-26 12:10] LABS: INR 1.16 (0.83-1.09); PROTHROMBIN TIME (PATIENT) 13.7 SEC (9.7-13.0)
--- NOTE | 2018-10-26 13:35 | PN.GI ---
GI Progress Note Subjective: No acute events Liver biopsy yesterday Some mid-abdominal discomfort - Objective Vital Signs: Vital Signs Temperature 98 F 10/26/18 10:00 Pulse Rate 82 10/26/18 06:07 Respiratory Rate 18 10/26/18 10:00 Blood Pressure 106/54 L 10/26/18 10:00 O2 Sat by Pulse Oximetry (%) 95 10/26/18 09:00 Constitutional: Calm Eyes: No: Sclera Icterus Cardiovascular: Yes: Regular Rate and Rhythm Respiratory: Yes: CTA Bilaterally Gastrointestinal Inspection: No: Distention ...Auscultate: Yes: Normoactive Bowel Sounds ...Palpate: Yes: Soft. No: Hepatomegaly, Splenomegaly, Tenderness ...Percussion: No: Tympanitic Edema: Yes Neurological: Yes: Alert Labs: CBC, BMP 10/26/18 06:40 10/21/18 05:50 INR, PTT INR 1.16 (0.83-1.09) H 10/26/18 11:10 Hepatic Panel Total Bilirubin 0.4 mg/dL (0.2-1) 10/21/18 05:50 AST 46 U/L (15-37) H 10/21/18 05:50 ALT 31 U/L (13-61) 10/21/18 05:50 Alkaline Phosphatase 348 U/L (45-117) H 10/21/18 05:50 Albumin 2.9 g/dl (3.4-5.0) L 10/21/18 05:50 Problem List - Problems (1) Liver lesion Assessment/Plan: Suspected metastatic pancreatic Ca Awaiting liver biopsy results Plan per oncology Code(s): K76.9 - LIVER DISEASE, UNSPECIFIED
--- NOTE | 2018-10-26 15:38 | PN ---
Teaching Attending Note Name of Resident: Renetta Qureshi ATTENDING PHYSICIAN STATEMENT I saw and evaluated the patient. I reviewed the resident's note and discussed the case with the resident. I agree with the resident's findings and plan as documented. SUBJECTIVE: complains of ongoing abdominal pain. No nausea/vomiting/ No diarrhea /melena/hematochezia OBJECTIVE: Afebrile, Hemodynamically Stable Last Vital Signs Temp Pulse Resp BP Pulse Ox 98.3 F 81 18 118/82 95 10/26/18 14:55 10/26/18 14:55 10/26/18 14:55 10/26/18 14:55 10/26/18 09:00 HEENT - Atraumatic, Normocephalic Heart - S1, S2, RRR Lungs - clear to auscultation Abdomen - Soft, mild generalized tenderness. Bowel Sounds normal. Extremities - LE chronic venous stasis skin changes Laboratory Results - last 24 hr 10/26/18 10/26/18 10/26/18 00:30 06:40 06:40 WBC 7.2 RBC 4.41 Hgb 12.1 Hct 37.2 MCV 84.3 MCH 27.5 MCHC 32.7 RDW 15.4 Plt Count 271 MPV 8.2 PT with INR INR PTT (Actin FS) 32.9 162.8 H 10/26/18 10/26/18 11:10 11:10 WBC RBC Hgb Hct MCV MCH MCHC RDW Plt Count MPV PT with INR 13.70 H INR 1.16 H PTT (Actin FS) 67.2 H Current Medications Generic Name Dose Route Start Last Admin Trade Name Freq PRN Reason Stop Dose Admin Acetaminophen 650 mg 10/26/18 08:22 10/26/18 08:49 Tylenol Oral Solution - PO 650 mg Q6H PRN Administration PAIN LEVEL 6-10 Al Hydroxide/Mg Hydroxide 30 ml 10/23/18 08:56 Mylanta Suspension - PO Q6HPO PRN indigestion Folic Acid 1 mg 10/23/18 10:00 10/26/18 09:28 Folic Acid - PO 1 mg DAILY ALTA Administration Heparin Sodium (Porcine) 1,000 unit 10/26/18 04:47 Heparin - IVPUSH PRN PRN Heparin Heparin Sodium (Porcine) 5,000 unit 10/26/18 04:47 Heparin - IVPUSH PRN PRN Heparin Heparin Sodium (Porcine) 25, 500 mls @ 20 mls/hr 10/26/18 05:00 10/26/18 13: 01 000 unit/ Sodium Chloride IV 1,150 unit/hr TITR ALTA 23 mls/hr Titration Protocol 1,000 UNIT/HR Lactulose 20 gm 10/24/18 10:00 10/26/18 13:36 Cephulac (Oral Use) PO Not Given QID ALTA Lorazepam 1 mg 10/22/18 12:13 10/26/18 10:32 Ativan - PO 1 mg Q12H PRN Administration ANXIETY Methadone HCl 80 mg 10/23/18 06:00 10/26/18 05:38 Dolophine - PO 80 mg DAILY@0600 ALTA Administration Nystatin 500,000 units 10/22/18 18:00 10/26/18 11:59 Nystatin Oral Suspension - PO Not Given Q6HPO ALTA Pantoprazole Sodium 20 mg 10/23/18 10:00 10/26/18 09:28 Protonix - PO 20 mg DAILY ALTA Administration Thiamine HCl 200 mg 10/23/18 10:00 10/26/18 09:29 Vitamin B1 Injection - IVPB 200 mg DAILY ALTA Administration Zolpidem Tartrate 10 mg 10/23/18 08:56 10/25/18 22:02 Ambien - PO 10 mg HS PRN Administration INSOMNIA ASSESSMENT AND PLAN: 53 year old male with history of COPD, Polysubstance abuse (ex-heroin, on Methadone) sent from [facility] for dyspnea and B/L LE edema, found to have RLE DVT and R PE along with multiple liver lesions and peritoneal carcionmatosis on imaging. 1. Pancreatic Mass with Liver lesions with multiple lung nodules, peritoneal carcinomatosis with extensive intra-abdominal adenopathy - likely malignancy CT Abdomen/pelvis shows pancreatic mass 4.6x3.2x2.8cm with multiple splenic and liver lesions, diffuse adenopathy. CTA Chest - diffuse nodules ?mets. CEA/CA19.9 elevated. POD 1 s/p Liver Bx - awaiting pathology resiults. Oncology consulted. Pain management tricky as patient is on Methadone. Addiction Medicine consulted for futher recommendations. If unable to take additional methadone prn, will consult pain management. 2. Acute PE/DVT - likely triggered by disseminated malignancy. Currently on Heparin drip - for transition to alternative means of AC - awaiting recommendations by Hematology/Oncology. 3. Ex-heroin User - on Methadone. Hx alcohol excess - no withdrawal symptoms currently. Addiction medicine consulted. Continue Thiamine, Folic Acid. GI Px - PPI
--- NOTE | 2018-10-26 16:52 | PN ---
Progress Note (short form) - Note Progress Note: S/P liver biopsy Awaiting pathology Hypercoaguable state likely from pancreatic ca with mets A/C - lovenox vs NOAC Pain management on methadone maintenance fpc Would ask pain management for assistance
[2018-10-26] MEDS ORDERED: PT OWN MED DRAWER 7, Y5N ONE (18:53)
[2018-10-26] MEDS: ZOLPIDEM TARTRATE 5 MG TABLET PO PRN (22:18)
[2018-10-27] MEDS: NYSTATIN 500,000 UNITS/5 ML SUSPENSION PO SCH ×3 (00:42→12:47)
[2018-10-27] MEDS: ACETAMINOPHEN 650 MG/20.3 ML ORAL SOLUTION (CUPS) PO PRN ×2 (01:16→10:25)
[2018-10-27] MEDS: METHADONE HCL 40 MG DISPERSABLE TABLET PO SCH (05:42)
[2018-10-27 07:24] LABS: HEMATOCRIT 37.5 % (35.4-49); HEMOGLOBIN 12.4 GM/dL (11.7-16.9); MCH 27.8 pg (25.7-33.7); MCHC 33.2 g/dl (32.0-35.9); MEAN CELL VOLUME 83.7 fl (80-96); MEAN PLT VOLUME 8.2 fl (7.5-11.1); PLATELET COUNT 283 K/MM3 (134-434); RBC 4.48 M/mm3 (4.00-5.60); RDW 15.4 % (11.9-15.9); WHITE BLOOD COUNT 7.1 K/mm3 (4.0-10.0)
[2018-10-27] MEDS: LORazepam 0.5 MG TABLET PO PRN (08:40)
[2018-10-27] MEDS: LACTULOSE 20 GM/30 ML UDC (FOR ORAL USE ONLY) PO SCH ×2 (10:26→13:10)
[2018-10-27] MEDS: FOLIC ACID 1 MG TABLET (FP) PO SCH (10:26)
[2018-10-27] MEDS: PANTOPRAZOLE 20 MG TABLET (FP) PO SCH (10:26)
[2018-10-27] MEDS: THIAMINE HCL 200 MG/2 ML VIAL IVPB SCH (10:27)
--- NOTE | 2018-10-27 12:31 | PN.GI ---
GI Progress Note Subjective: Pt seen/examined at bedside, still with intermittent abdominal pain, moved bowels yesterday, not yet today, passing flatus. Tolerating diet well. Denies n/ v. Abd xray results noted. - Objective Vital Signs: Vital Signs Temperature 98.3 F 10/27/18 06:34 Pulse Rate 73 10/27/18 06:34 Respiratory Rate 20 10/27/18 06:34 Blood Pressure 100/52 L 10/27/18 06:34 O2 Sat by Pulse Oximetry (%) 96 10/26/18 21:00 Constitutional: Well Nourished, No Distress, Calm Cardiovascular: Yes: WNL, Regular Rate and Rhythm Respiratory: Yes: WNL, Regular, CTA Bilaterally ...Palpate: Yes: Other (Abd soft, mildly tender on palpation in periumbilical region, non distended, no rebound, guarding or rigidity) Labs: CBC, BMP 10/27/18 06:47 10/21/18 05:50 INR, PTT INR 1.16 (0.83-1.09) H 10/26/18 11:10 Problem List - Problems (1) Liver lesion Assessment/Plan: 53yo male h/o COPD, polysubstance abuse (etoh, heroin on methadone) presenting with dyspnea and LE edema with CTA revealing liver lesions and possible peritoneal carcinomatosis concerning for metastatic ca suspected pancreatic primary s/p liver biopsy. Elevated CEA and CA19-9. -Await results of liver biopsy (team spoke with pathology to expedite) -Diet as tolerated -Continue lactulose tid/prn (pt does not want to try miralax) -Further recommendations per oncology and surgery Discussed with medicine team Code(s): K76.9 - LIVER DISEASE, UNSPECIFIED
--- NOTE | 2018-10-27 12:52 | CONSULT ---
Consult Consult Specialty:: General Surgery Reason for Consultation:: Metastatic Pancreatic Cancer - History of Present Illness Chief Complaint: Abdominal Pain History of Present Illness: 53 yo male PMH COPD, polysubstance abuse (etoh, heroin on methadone) presented with dyspnea and LE edema with CTA revealing liver lesions and possible peritoneal carcinomatosis. He is a poor historian, reports vague symptoms including nausea and vomiting intermittent periumbilical abdominal pain for 1-2 weeks. Initially had reported withdrawal symptoms then advised ED evaluation due to reports of shortness of breath and LE edema. Patient continues to drink 2 pints vodka daily. Reports constipation, moves bowels every 1 week taking laxatives regularly, denies recent change or blood in stools. Denies weight loss. States he had colonoscopy 2 years ago at [facility] reportedly normal. Denies prior EGD. Reports positive family history of colon ca (father diagnosed in 60s, details unclear). CT scan abdomen shows small right lobe PE, liver hypodensities and peritoneal carcinomatosis concerning for metastatic disease. We were asked to assess. - History Source History Provided By: Patient, Medical Record Limitations to Obtaining History: No Limitations - Alcohol/Substance Use Hx Alcohol Use: Yes History of Substance Use: reports: None - Smoking History Smoking history: Current every day smoker Have you smoked in the past 12 months: No Aproximately how many cigarettes per day: 10 - Social History Place of : [facility] History of Recent Travel: Yes Home Medications - Allergies Allergies/Adverse Reactions: Allergies Allergy/AdvReac Type Severity Reaction Status Date / Time No Known Allergies Allergy Verified 10/27/18 20:24 - Home Medications Home Medications: Ambulatory Orders Aspirin 81 mg PO DAILY 10/21/18 Atorvastatin Ca [Lipitor] 80 mg PO HS 10/21/18 Enoxaparin [Lovenox -] 135 mg SQ DAILY 10/27/18 Folic Acid - 1 mg PO DAILY #30 tablet 10/27/18 Lactulose 20 gm PO QID 10/27/18 Mag Hydrox/Al Hydrox/Simeth [MAALOX *SUSPENSION* -] 30 ml PO Q6HPO PRN ml 10/27 Methadone [Dolophine -] 80 mg PO DAILY@0600 tablet MDD 80 10/27/18 Pantoprazole Sodium [Protonix -] 20 mg PO DAILY tablet.ec 10/27/18 Thiamine HCl [Vitamin B1 -] 100 mg PO DAILY tablet 10/27/18 Review of Systems - Review of Systems Constitutional: denies: Chills, Fever Eyes: denies: Blurred Vision, Eye Pain, Floaters HENT: denies: Difficult Swallowing, Throat Pain Neck: denies: Stiffness, Tenderness Cardiovascular: denies: Chest Pain, Palpitations Respiratory: denies: Cough, SOB Gastrointestinal: reports: Abdominal Pain, Bloating. denies: Constipation, Diarrhea Genitourinary: denies: Incontinence, Lesions, Menses Breasts: reports: No Symptoms Reported. denies: Pain Musculoskeletal: denies: Extremity Pain, Joint Pain Integumentary: denies: Eczema, Erythema, Incision Neurological: denies: Seizure, Syncope Endocrine: denies: Unexplained Weight Gain, Unexplained Weight Loss Hematology/Lymphatic: denies: Easily Bruised, Excessive Bleeding Psychiatric: denies: Anxiety, Depression, Paranoia, Suicidal Physical Exam Vital Signs: Vital Signs Temperature 98.3 F 10/27/18 06:34 Pulse Rate 73 10/27/18 06:34 Respiratory Rate 20 10/27/18 06:34 Blood Pressure 100/52 L 10/27/18 06:34 O2 Sat by Pulse Oximetry (%) 96 10/26/18 21:00 Constitutional: Yes: Well Nourished, No Distress, Calm Eyes: Yes: Conjunctiva Clear, EOM Intact HENT: Yes: Atraumatic, Normocephalic Neck: Yes: Supple, Trachea Midline Cardiovascular: Yes: Regular Rate and Rhythm, S1, S2 Respiratory: Yes: Regular, CTA Bilaterally Gastrointestinal: Yes: Normal Bowel Sounds, Soft. No: Tenderness, Tenderness, Epigastrium ...Rectal Exam: Yes: Deferred Renal/: No: CVA Tenderness - Left, CVA Tenderness - Right Breast(s): No: Gynecomastia, Skin Changes Musculoskeletal: No: Joint Swelling, Muscle Pain Extremities: No: Cool, Cyanosis Edema: No Peripheral Pulses WNL: Yes Integumentary: No: Jaundice, Laceration Neurological: Yes: Alert, Oriented Psychiatric: Yes: Alert, Oriented Labs: CBC, BMP 10/27/18 06:47 10/21/18 05:50 Imaging - Results Cat Scan: Report Reviewed, Image Reviewed (metastatic pancreatic cancer, carcinomatosis, hepatic and splenic lesions) Problem List - Problems (1) Metastases to the liver Assessment/Plan: 53 yo male PMH Alcoholic pancreatitis, possible early pseudocyst formation. No acute surgical intervention. Medical managemnt NPO and IVF hydration EtOH cessation Discharge at the discretion of the primary. Thank you for the opportunity to participate in the care of this patient. Code(s): C78.7 - SECONDARY MALIG NEOPLASM OF LIVER AND INTRAHEPATIC BILE DUCT (2) Alcohol dependence with uncomplicated withdrawal Code(s): F10.230 - ALCOHOL DEPENDENCE WITH WITHDRAWAL, UNCOMPLICATED (3) Anxiety and depression Code(s): F41.8 - OTHER SPECIFIED ANXIETY DISORDERS (4) COPD (chronic obstructive pulmonary disease) Code(s): J44.9 - CHRONIC OBSTRUCTIVE PULMONARY DISEASE, UNSPECIFIED Qualifiers: Emphysema type: unspecified (5) Psoriasis Code(s): L40.9 - PSORIASIS, UNSPECIFIED (6) Syncope Code(s): R55 - SYNCOPE AND COLLAPSE Qualifiers: Syncope type: unspecified Qualified Code(s): R55 - Syncope and collapse
[2018-10-27] MEDS ORDERED: PT OWN MED DRAWER 7, Y5N ONE ×2 (13:09→13:10)
[2018-10-27] MEDS: HEPARIN - 25,000 UNIT in SODIUM CHLORIDE 495 ML IV SCH (13:13)
[2018-10-27] MEDS ORDERED: THIAMINE HCL 100 MG TABLET (FP) PO SCH (14:45)
[2018-10-27 15:02] VITALS: PULSE 81
[2018-10-27] MEDS ORDERED: ENOXAPARIN NA (PORCINE) 120 MG/0.8 ML DISP.SYRIN SQ SCH (16:00)
--- NOTE | 2018-10-27 16:30 | PATH ---
Surgical Pathology Report Patient Name: LIZETH SHUKLA Med. Rec. #: [id number] /Age/Gender: 1965 (Age: 53) / M Account: [id number] [facility] Taken: 10/25/2018 Received: 10/25/2018 Reported: 10/27/2018 Physicians: Carly Gaxiola M.D. Specimen(s) Received LIVER BIOPSY Clinical History 53-year-old male with pancreatic tail mass, hepatic and splenic lesions likely metastases Final Diagnosis LIVER BIOPSY: MALIGNANT NEOPLASM, MINUTE AGGREGATE. Comment: Malignant cells with marked pleomorphism, present only in one level of H&E slide. Neoplasm cannot be further classified in this material. See concurrent cytology report [id number]. Intradepartmental case reviewed with concordance on diagnosis. This case was discussed with Dr. Kidd on October 27, 2018. Electronically Signed Mela Landon M.D. Gross Description Received in formalin labeled "liver biopsy," is a 0.3 x 0.3 x 0.1 cm aggregate of kilpatrick soft tissue fragments. The formalin is filtered and the specimen is entirely submitted in one cassette. /10/25/2018 saudi10/25/2018
--- NOTE | 2018-10-27 16:39 | PATH ---
Cytology Non-Gynecological Report Patient Name: LIZETH SHUKLA Med. Rec. #: [id number] /Age/Gender: 1965 (Age: 53) / M Account: [id number] Location: [facility] MED/SURG Taken: 10/25/2018 Received: 10/25/2018 Reported: 10/27/2018 Physicians: Carly Gaxiola M.D. Specimen(s) Received LIVER LESION FLUID Clinical History Liver mass Final Diagnosis LIVER LESION FLUID FOR CYTOLOGY: SATISFACTORY FOR EVALUATION. POSITIVE FOR MALIGNANT CELLS. CONSISTENT WITH POORLY DIFFERENTIATED CARCINOMA. Comment: Scant evidence. Predominantly necrotic material with few viable highly atypical cells with marked pleomorphism. Immunohistochemical stains performed and interpreted at [facility] show the tumor cells to be positive for AE1/3 and CK-7. CK20 shows rare nonspecific staining. 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 The differential diagnoses include adenocarcinoma of lung, upper gastrointestinal tract (esophagus, stomach), and urothelial carcinoma. Clinical correlation with imaging studies recommended. The tumor cells morphologically are similar to the liver biopsy material in concurrent pathology report [id number]. Intradepartmental case reviewed with concordance on diagnosis. This case was discussed with Dr. Kidd on October 27, 2018. Electronically Signed Mela Landon M.D. Gross Description Approximately 50cc of bloody fluid received fixed in 50% alcohol. Two slides and one cellblock prepared.
[2018-10-27] MEDS ORDERED: ENOXAPARIN SQ SCH (17:00)
[2018-10-27] MEDS ORDERED: ENOXAPARIN NA (PORCINE) 60 MG/0.6 ML DISP.SYRIN SQ ONE (17:01)
[2018-10-27] MEDS ORDERED: ENOXAPARIN NA (PORCINE) 80 MG/0.8 ML DISP.SYRIN SQ ONE (17:01)
[2018-10-27] MEDS ORDERED: ENOXAPARIN NA (PORCINE) 40 MG/0.4 ML DISP.SYRIN SQ ONE (17:01)
--- NOTE | 2018-10-27 17:11 | PN ---
Teaching Attending Note Name of Resident: Renetta Qureshi ATTENDING PHYSICIAN STATEMENT I saw and evaluated the patient. I reviewed the resident's note and discussed the case with the resident. I agree with the resident's findings and plan as documented. SUBJECTIVE: complains of some ongoing abdominal pain. No nausea/vomiting/ No diarrhea/melena/hematochezia OBJECTIVE: Afebrile, Hemodynamically Stable Last Vital Signs Temp Pulse Resp BP Pulse Ox 97.7 F 81 18 109/59 L 95 10/27/18 15:00 10/27/18 15:00 10/27/18 15:00 10/27/18 15:00 10/27/18 09:00 Heart - S1, S2, RRR Lungs - clear to auscultation Abdomen - Soft, mild generalized tenderness. Bowel Sounds normal. Extremities - LE chronic venous stasis skin changes Laboratory Results - last 24 hr 10/27/18 10/27/18 06:47 06:47 WBC 7.1 RBC 4.48 Hgb 12.4 Hct 37.5 MCV 83.7 MCH 27.8 MCHC 33.2 RDW 15.4 Plt Count 283 MPV 8.2 PTT (Actin FS) 49.0 H CBCD WBC 7.1 K/mm3 (4.0-10.0) 10/27/18 06:47 RBC 4.48 M/mm3 (4.00-5.60) 10/27/18 06:47 Hgb 12.4 GM/dL (11.7-16.9) 10/27/18 06:47 Hct 37.5 % (35.4-49) 10/27/18 06:47 MCV 83.7 fl (80-96) 10/27/18 06:47 MCHC 33.2 g/dl (32.0-35.9) 10/27/18 06:47 RDW 15.4 % (11.9-15.9) 10/27/18 06:47 Plt Count 283 K/MM3 (134-434) 10/27/18 06:47 MPV 8.2 fl (7.5-11.1) 10/27/18 06:47 CMP Sodium 139 mmol/L (136-145) 10/21/18 05:50 Potassium 4.4 mmol/L (3.5-5.1) 10/21/18 05:50 Chloride 103 mmol/L (98-107) 10/21/18 05:50 Carbon Dioxide 30 mmol/L (21-32) 10/21/18 05:50 Anion Gap 7 MMOL/L (8-16) L 10/21/18 05:50 BUN 4.0 mg/dL (7-18) L 10/21/18 05:50 Creatinine 0.6 mg/dL (0.55-1.3) 10/21/18 05:50 Random Glucose 87 mg/dL (74-106) 10/21/18 05:50 Calcium 8.2 mg/dL (8.5-10.1) L 10/21/18 05:50 Total Bilirubin 0.4 mg/dL (0.2-1) 10/21/18 05:50 AST 46 U/L (15-37) H 10/21/18 05:50 ALT 31 U/L (13-61) 10/21/18 05:50 Alkaline Phosphatase 348 U/L (45-117) H 10/21/18 05:50 Total Protein 6.5 g/dl (6.4-8.2) 10/21/18 05:50 Albumin 2.9 g/dl (3.4-5.0) L 10/21/18 05:50 CARDIAC ENZYMES Creatine Kinase 279 U/L (26-308) 10/20/18 02:40 Troponin I < 0.02 ng/ml (0.00-0.05) 10/20/18 02:40 Current Medications Generic Name Dose Route Start Last Admin Trade Name Freq PRN Reason Stop Dose Admin Acetaminophen 650 mg 10/26/18 08:22 10/27/18 10:25 Tylenol Oral Solution - PO 650 mg Q6H PRN Administration PAIN LEVEL 6-10 Al Hydroxide/Mg Hydroxide 30 ml 10/23/18 08:56 Mylanta Suspension - PO Q6HPO PRN indigestion Enoxaparin Sodium 80 mg/ 135 mg 10/27/18 17:00 10/27/18 17:06 Enoxaparin Sodium 55 mg SQ 135 mg DAILY ALTA Administration Enoxaparin Sodium 135 mg 10/27/18 17:01 Lovenox - SQ 10/27/18 17:02 ONCE ONE Folic Acid 1 mg 10/23/18 10:00 10/27/18 10:26 Folic Acid - PO 1 mg DAILY ALTA Administration Lactulose 20 gm 10/24/18 10:00 10/27/18 13:10 Cephulac (Oral Use) PO 20 gm QID ALTA Administration Lorazepam 1 mg 10/22/18 12:13 10/27/18 08:40 Ativan - PO 1 mg Q12H PRN Administration ANXIETY Methadone HCl 80 mg 10/23/18 06:00 10/27/18 05:42 Dolophine - PO 80 mg DAILY@0600 ALTA Administration Nystatin 500,000 units 10/22/18 18:00 10/27/18 12:47 Nystatin Oral Suspension - PO Not Given Q6HPO ALTA Pantoprazole Sodium 20 mg 10/23/18 10:00 10/27/18 10:26 Protonix - PO 20 mg DAILY ALTA Administration Thiamine HCl 100 mg 10/27/18 14:45 Vitamin B1 - PO DAILY ALTA Zolpidem Tartrate 10 mg 10/23/18 08:56 10/26/18 22:18 Ambien - PO 10 mg HS PRN Administration INSOMNIA ASSESSMENT AND PLAN: 53 year old male with history of COPD, Polysubstance abuse (ex-heroin, on Methadone) sent from [facility] for dyspnea and B/L LE edema, found to have RLE DVT and R PE along with multiple liver lesions and peritoneal carcionmatosis on imaging. 1. Pancreatic Mass with Liver lesions with multiple lung nodules, peritoneal carcinomatosis with extensive intra-abdominal adenopathy - likely disseminated malignancy CT Abdomen/pelvis shows pancreatic mass 4.6x3.2x2.8cm with multiple splenic and liver lesions, diffuse adenopathy. CTA Chest - diffuse nodules ?mets. CEA/CA19.9 elevated. POD 2 s/p Liver Bx - awaiting pathology results. Oncology consulted. Pain management sensitive as patient is on Methadone. Addiction Medicine consulted for further recommendations. If unable to take additional methadone prn, will need pain management consultation. Medically Stable for discharge to [facility] with Surgery and Oncology follow ups. 2. Acute PE/DVT - likely triggered by disseminated malignancy. Currently on Heparin drip - for transition to Lovenox SQ as recommended by Oncology. 3. Ex-heroin User - on Methadone. Hx alcohol excess - no withdrawal symptoms currently. Addiction medicine consulted. Continue Thiamine, Folic Acid. 4. Partial SBO/Ileus on AXR - clinically not the case. He is tolerating oral intake without distension, nausea, vomiting and moving bowels. Patient seen by GI and Surgery and not felt to have SBO clinically. Medical Clear for discharge - for Oncology, GI, Surgery follow ups.
[2018-10-27 17:17] VITALS: BP 107/65; TEMP 98.3
--- NOTE | 2018-10-27 17:38 | PN ---
Progress Note (short form) - Note Progress Note: Patient seen and examined Fluid from abdomen - positive for malignant cell . patient informed that he has a malignancy. Ultimately he plans to be treated at [facility] Last Vital Signs Temp Pulse Resp BP Pulse Ox 98.3 F 81 20 107/65 95 10/27/18 17:17 10/27/18 17:17 10/27/18 17:17 10/27/18 17:17 10/27/18 09:00 Cor: RSR, No murmurs, No gallops Lungs: Clear to P&A Abd: Soft, Normal bowel sounds, No organomegaly Ext:No significant edema Skin: No rashes, Integument intact CBC, BMP 10/27/18 06:47 10/21/18 05:50 Current Medications Generic Name Dose Route Start Last Admin Trade Name Freq PRN Reason Stop Dose Admin Acetaminophen 650 mg 10/26/18 08:22 10/27/18 10:25 Tylenol Oral Solution - PO 650 mg Q6H PRN Administration PAIN LEVEL 6-10 Al Hydroxide/Mg Hydroxide 30 ml 10/23/18 08:56 Mylanta Suspension - PO Q6HPO PRN indigestion Enoxaparin Sodium 80 mg/ 135 mg 10/27/18 17:00 10/27/18 17:06 Enoxaparin Sodium 55 mg SQ 135 mg DAILY ALTA Administration Folic Acid 1 mg 10/23/18 10:00 10/27/18 10:26 Folic Acid - PO 1 mg DAILY ALTA Administration Lactulose 20 gm 10/24/18 10:00 10/27/18 13:10 Cephulac (Oral Use) PO 20 gm QID ALTA Administration Lorazepam 1 mg 10/22/18 12:13 10/27/18 08:40 Ativan - PO 1 mg Q12H PRN Administration ANXIETY Methadone HCl 80 mg 10/23/18 06:00 10/27/18 05:42 Dolophine - PO 80 mg DAILY@0600 ALTA Administration Nystatin 500,000 units 10/22/18 18:00 10/27/18 12:47 Nystatin Oral Suspension - PO Not Given Q6HPO ALTA Pantoprazole Sodium 20 mg 10/23/18 10:00 10/27/18 10:26 Protonix - PO 20 mg DAILY ALTA Administration Thiamine HCl 100 mg 10/27/18 14:45 10/27/18 17:30 Vitamin B1 - PO Not Given DAILY ALTA Zolpidem Tartrate 10 mg 10/23/18 08:56 10/26/18 22:18 Ambien - PO 10 mg HS PRN Administration INSOMNIA Impression: Likely metastatic pancreatic ca with ace/ liver mets. Liver biopsy pending Path compatible with hepatobiliary origin vs GI vs LUung. Awaiting liver biopsy
== END 2018-10-27 18:00 | disposition other institution (70) | DRG 134 ==
LOC: JER 01:39 → JERBED 06:17 → J4W 10-21 11:05 → J8W 10-22 13:14
PROVIDERS: ADMIT Internal Medicine
PROC: 0FB03ZX Excision of Liver, Percutaneous Approach, Diagnostic (ICD-10-PCS; principal; 2018-10-25)
DX: I26.99 Other pulmonary embolism without acute cor pulmonale (principal); C25.7 Malignant neoplasm of other parts of pancreas; C78.89 Secondary malignant neoplasm of other digestive organs; C78.7 Secondary malignant neoplasm of liver and intrahepatic bile duct; J44.9 Chronic obstructive pulmonary disease, unspecified; E78.5 Hyperlipidemia, unspecified; R42 Dizziness and giddiness; B37.0 Candidal stomatitis; J98.11 Atelectasis; F11.20 Opioid dependence, uncomplicated; I82.401 Acute embolism and thrombosis of unspecified deep veins of right lower extremity; K40.90 Unilateral inguinal hernia, without obstruction or gangrene, not specified as recurrent; R91.8 Other nonspecific abnormal finding of lung field; R74.0 Nonspecific elevation of levels of transaminase and lactic acid dehydrogenase [LDH]; C78.6 Secondary malignant neoplasm of retroperitoneum and peritoneum; D68.59 Other primary thrombophilia; G47.00 Insomnia, unspecified; K59.00 Constipation, unspecified; L40.9 Psoriasis, unspecified; F10.230 Alcohol dependence with withdrawal, uncomplicated; F41.8 Other specified anxiety disorders; Z86.19 Personal history of other infectious and parasitic diseases
CPT/HCPCS: 36415; 70450-TC; 71045-TC-FY; 71046-TC-FY; 71275-TC; 74019-TC-FY; 74177-TC; 76942-TC; 80053; 80061; 80074; 80307; 81003; 82105; 82272; 82378; 82550; 82553; 82607; 82746; 82977; 83721; 83735; 83880; 84100; 84484; 85025; 85027; 85379; 85610; 85730; 86301; 86304; 86704; 86706; 86708; 87340; 87389; 87899; 88108; 88305-TC; 88341-TC; 90732; 93005; 93010; 93306-TC; 93970-TC; 94010; 99285-25; G0009; J0131; J1644; J7030; Q9967

== ENCOUNTER 2018-10-27 19:01 | Inpatient (IN) | payer OTHER ==
[2018-10-27 20:39] VITALS: BMI 28.1
--- NOTE | 2018-10-27 21:33 | HP ---
CIWA Score - Admission Criteria OASAS Guidelines: Admission for Medically Managed Detox: Requires at least one of the followin. CIWA greater than 12 2. Seizures within the past 24 hours 3. Delirium tremens within the past 24 hours 4. Hallucinations within the past 24 hours 5. Acute intervention needed for co occurring medical disorder 6. Acute intervention needed for co occurring psychiatric disorder 7. Severe withdrawal that cannot be handled at a lower level of care (continued vomiting, continued diarrhea, abnormal vital signs) requiring intravenous medication and/or fluids 8. Admission ROS S - HPI Allergies/Adverse Reactions: Allergies Allergy/AdvReac Type Severity Reaction Status Date / Time No Known Allergies Allergy Verified 10/27/18 20:24 History of Present Illness: 53 year old male with history of COPD, Polysubstance abuse (ex-heroin, on Methadone) AT [facility], REPORTS MMTP DOSE 80 MG sent from [facility] for rehab after being admittedand treated for dyspnea and B/L LE edema, found to have RLE DVT and R PE along with multiple liver lesions and peritoneal carcionmatosis on imaging. Fluid from abdomen - positive for malignant cell . patient informed that he has a malignancy. Ultimately he plans to be treated at [facility] Likely metastatic pancreatic ca with ace/ liver mets. Liver biopsy pending Path compatible with hepatobiliary origin vs GI vs LUung. Awaiting liver biopsy Exam Limitations: Physical Impairment (ambualtes with walker due to veritgo) - Ebola screening Have you traveled outside of the country in the last 21 days: No (N) Have you had contact with anyone from an Ebola affected area: No Do you have a fever: No - Review of Systems Constitutional: Chills, Loss of Appetite, Malaise, Night Sweats EENT: reports: Dental Problems (top dentures) Respiratory: reports: Shortness of Breath Cardiac: reports: No Symptoms Reported GI: reports: Poor Appetite, Abdominal cramping : reports: No Symptoms Reported Musculoskeletal: reports: Back Pain (chronic), Neck Pain (chronic) Integumentary: reports: Bruising (to arms from iv while hospitalized) Neuro: reports: Headache, Weakness (ble), Unsteady Gait (ambualtes with walker) Endocrine: reports: No Symptoms Reported Hematology: reports: Blood Clots (recent rle dvt and pe) Psychiatric: reports: Orientated x3, Anxious, Depressed (denies si/hi) Other Systems: Reviewed and Negative Patient History - Patient Medical History Hx Anemia: No Hx Asthma: No Hx Chronic Obstructive Pulmonary Disease (COPD): Yes Hx Cancer: No Hx Cardiac Disorders: No Hx Congestive Heart Failure: No Hx Hypertension: No Hx Hypercholesterolemia: No Hx Pacemaker: No HX Cerebrovascular Accident: No Hx Seizures: No Hx Dementia: No Hx Diabetes: No Hx Gastrointestinal Disorders: No Hx Liver Disease: No Hx Genitourinary Disorders: No Hx Sexually Transmitted Disorders: No Hx Renal Disease (ESRD): No Hx Thyroid Disease: No Hx Human Immunodeficiency Virus (HIV): No Hx Hepatitis C: No Hx Depression: No Hx Suicide Attempt: No Hx Bipolar Disorder: No Hx Schizophrenia: No Other Medical History: RLE DVT , PE AND PANCREATIC CANCER, VERTIGO - Patient Surgical History Past Surgical History: No Hx Neurologic Surgery: No Hx Cataract Extraction: No Hx Cardiac Surgery: No Hx Lung Surgery: No Hx Breast Surgery: No Hx Breast Biopsy: No Hx Abdominal Surgery: Yes (R inguinal hernia.) Hx Appendectomy: No Hx Cholecystectomy: No Hx Genitourinary Surgery: No Hx Section: No Hx Orthopedic Surgery: No Hx Hysterectomy: No Anesthesia Reaction: No - PPD History Previous Implant?: Yes Documented Results: Positive w/o proof Implanted On Prior [facility] Admission?: No Results: neg cxr 10/21/18 PPD to be Administered?: No - Smoking Cessation Smoking history: Former smoker Have you smoked in the past 12 months: No Aproximately how many cigarettes per day: 20 Cigars Per Day: 0 Hx Chewing Tobacco Use: No Initiated information on smoking cessation: No - Substance & Tx. History Hx Alcohol Use: Yes Hx Substance Use: Yes Substance Use Type: Alcohol, Prescribed ([facility]) Hx Substance Use Treatment: Yes ([facility]) - Substances abused Alcohol Substance route: Oral Frequency: 3-6 times per week Amount used: 20 oz vodka, 3-4 20 oz vodka ice Age of first use: 16 Date of last use: 10/19/18 Alprazolam (Xanax) Substance route: Oral Frequency: 1-3 times last 30 days Amount used: two of 4 mg Age of first use: 14 Date of last use: 10/18/18 Benzodiazepine (Klonopin) Substance route: Oral Frequency: 1-3 times last 30 days Amount used: 4 mg Age of first use: 19 Date of last use: 10/19/18 Family Disease History - Family Disease History Family Disease History: CA: Father (LIVER) Admission Physical Exam [facility] - Vital Signs Vital Signs: Vital Signs - 24 hr 10/27/18 20:29 Temperature 99.3 F Pulse Rate 98 H Respiratory 18 Rate Blood Pressure 122/73 - Physical General Appearance: Yes: Anxious, Other (chronically ill appearing) HEENTM: Yes: EOMI, Normocephalic, MILTON, Pharynx Normal, Other (top dentures) Respiratory: Yes: Chest Non-Tender, Decreased Breath Sounds, No Respiratory Distress Neck: Yes: No masses,lesions,Nodules, Supple, Trachea in good position Breast: Yes: Breast Exam Deferred Cardiology: Yes: Regular Rhythm, Regular Rate, S1, S2 Abdominal: Yes: Normal Bowel Sounds, Soft, Tenderness, Other (rlq clean dry dressing intact) Genitourinary: Yes: Within Normal Limits Back: Yes: Normal Inspection Musculoskeletal: Yes: full range of Motion, Other (unsteady gait ambualtes with walker) Extremities: Yes: Non-Tender, Pedal Edema (resolving) Neurological: Yes: Fully Oriented, Alert, Depressed Affect Integumentary: Yes: Normal Color, Dry, Warm Lymphatic: Yes: Within Normal Limits - Diagnostic (1) Right leg DVT Current Visit: Yes Status: Acute (2) Sedative, hypnotic or anxiolytic dependence, uncomplicated Current Visit: Yes Status: Acute (3) Walker as ambulation aid Current Visit: Yes Status: Acute (4) Liver lesion Current Visit: No Status: Acute (5) Metastases to the liver Current Visit: No Status: Acute (6) Omental mass Current Visit: No Status: Acute (7) Pulmonary embolism Current Visit: No Status: Acute Qualifiers: Pulmonary embolism type: unspecified Chronicity: acute Acute cor pulmonale presence: without acute cor pulmonale Qualified Code(s): I26.99 - Other pulmonary embolism without acute cor pulmonale (8) Anxiety and depression Current Visit: No Status: Chronic (9) COPD (chronic obstructive pulmonary disease) Current Visit: No Status: Chronic (10) Methadone maintenance therapy patient Current Visit: No Status: Chronic (11) Nicotine dependence Current Visit: No Status: Chronic Qualifiers: Nicotine product type: cigarettes Substance use status: in withdrawal Qualified Code(s): F17.213 - Nicotine dependence, cigarettes, with withdrawal Cleared for Admission [facility] - Detox or Rehab Detox Regimen/Protocol: Not Applicable Claeared for Rehab Admission: Yes Breathalyzer - Breathalyzer Breathalyzer: 0 Urine Drug Screen - Test Device Lot number: [id number] Expiration date: 07/08/20 - Control Is test valid?: Yes - Results Drug screen NEGATIVE: No Urine drug screen results: MTD-Methadone, BZO-Benzodiazepines Inpatient Rehab Admission - Rehab Decision to Admit Inpatient rehab admission?: Yes - Initial Determination Are CD services needed?: Yes Free of communicable disease: Yes Not in need of hospitalization: Yes - Rehab Admission Criteria Previous failed treatment: Yes Poor recovery environment: Yes Comorbidities: Yes Lacks judgement: No Patient is meeting Inpatient Rehab admission criteria:: Yes
[2018-10-27] MEDS ORDERED: MENTHOL/PHENOL 1 EACH UD MM PRN (21:51)
[2018-10-27] MEDS ORDERED: ACETAMINOPHEN 325 MG TABLET (FP) PO PRN (21:51)
[2018-10-27] MEDS ORDERED: LOPERAMIDE HCL 2 MG CAPSULE PO PRN (21:51)
[2018-10-27] MEDS ORDERED: IBUPROFEN 400 MG TABLET (FP) PO PRN (21:51)
[2018-10-27] MEDS ORDERED: guaiFENesin 200 MG/10 ML 10 ML UNIT-DOSE CUPS PO PRN (21:51)
[2018-10-27] MEDS ORDERED: MAGNESIUM HYDROX 2400MG/30ML ORAL SUSPENSION 30 ML CUP PO PRN (21:51)
[2018-10-27] MEDS ORDERED: MAG HYDROX/AL HYDROX/SIMETH 30 ML UNIT-DOSE CUP PO PRN (21:51)
[2018-10-27] MEDS ORDERED: MAGNESIUM CITRATE 300 ML BOTTLE PO PRN (21:51)
[2018-10-27] MEDS: MELATONIN 5 MG TABLETS PO PRN (23:45)
[2018-10-27] MEDS: hydrOXYzine PAMOATE 50 MG CAPSULE (FP) PO PRN (23:45)
[2018-10-27] MEDS: THIAMINE HCL 100 MG TABLET (FP) PO SCH (23:45)
[2018-10-28] MEDS ORDERED: ENOXAPARIN NA (PORCINE) 80 MG/0.8 ML DISP.SYRIN SQ SCH (10:00)
[2018-10-28] MEDS ORDERED: METHADONE HCL 40 MG DISPERSABLE TABLET PO ONE (10:00)
[2018-10-28] MEDS: LACTULOSE 20 GM/30 ML UDC (FOR ORAL USE ONLY) PO SCH ×4 (10:13→21:16)
[2018-10-28] MEDS: PANTOPRAZOLE 20 MG TABLET (FP) PO SCH (10:14)
[2018-10-28] MEDS: PRENATAL VITAMINS W/ FOLIC ACID TABLET (FP) PO SCH (10:14)
--- NOTE | 2018-10-28 11:15 | CONSULT ---
[facility] Psychiatric Consult - Data Date of interview: 10/28/18 Admission source: [facility] Identifying data: Patient is a 53 year old single male, father of two, unemployed, domiciled, and is supported by welfare. This is one of multiple admissions for patient. Patient admitted to for alcohol and benzodiazepine dependence. Substance Abuse History: Smoking Cessation. Smoking history: Former smoker. Have you smoked in the past 12 months: No. Aproximately how many cigarettes per day: 20. Cigars Per Day: 0. Hx Chewing Tobacco Use: No. Initiated information on smoking cessation: No. - Substance & Tx. History. Hx Alcohol Use: Yes. Hx Substance Use: Yes. Substance Use Type: Alcohol, Prescribed ([facility]) . Hx Substance Use Treatment: Yes ([facility]). - Substances abused. Alcohol. Substance route: Oral. Frequency: 3-6 times per week. Amount used: 20 oz vodka , 3-4 20 oz vodka ice. Age of first use: 16. Date of last use: 10/19/18. Alprazolam (Xanax). Substance route: Oral. Frequency: 1-3 times last 30 days. Amount used: two of 4 mg. Age of first use: 14. Date of last use: 10/18/18. Benzodiazepine (Klonopin). Substance route: Oral. Frequency: 1-3 times last 30 days. Amount used: 4 mg. Age of first use: 19. Date of last use: 03/29 Medical History: COPD, RLE DVT , PE AND PANCREATIC CANCER, VERTIGO, R inguinal hernia. Psychiatric History: Patient denies h/o psychiatric hospitalization, outpatient care, and suicide attempt. Patient reports difficulty sleeping and is requesting a sleep aid as he states melatonin is not effective. Patient with past history of accepting ambien. Physical/Sexual Abuse/Trauma History: denies. Mental Status Exam - Mental Status Exam Alert and Oriented to: Time, Place, Person Cognitive Function: Good Patient Appearance: Well Groomed Mood: Euthymic Affect: Mood Congruent Patient Behavior: Cooperative Speech Pattern: Appropriate Voice Loudness: Moderately Soft/Quiet Thought Process: Goal Oriented Thought Disorder: Not Present Hallucinations: Denies Suicidal Ideation: Denies Homicidal Ideation: Denies Insight/Judgement: Poor Sleep: Poorly Appetite: Fair Muscle strength/Tone: Normal Gait/Station: Other (Ambulates with a walker) Psychiatric Findings - Problem List ([place] 1, 2,3) (1) Methadone maintenance therapy patient Current Visit: Yes Status: Chronic (2) Nicotine dependence Current Visit: Yes Status: Chronic Qualifiers: Nicotine product type: cigarettes Substance use status: in withdrawal Qualified Code(s): F17.213 - Nicotine dependence, cigarettes, with withdrawal (3) Sedative hypnotic or anxiolytic dependence Current Visit: Yes Status: Acute (4) Substance-induced sleep disorder Current Visit: Yes Status: Acute - Initial Treatment Plan Initial Treatment Plan: Psychoeducation provided. Rehab in progress. Will order Belsomra 10mg HS. Benefits and side effects discussed. Verbal consent given.
--- NOTE | 2018-10-28 12:48 | PN ---
[facility] Progress Note Note: PT WAS ADMITTED YESTERDAY(SEE H/P OF 10/27/18) TO REHAB AFTER INPATIENT HOSPITALIZATION AT [facility] FOR C/O RIGHT LEG SWELLING/REDNESS. PT C/O ABDOMINAL PAIN-GENERALIZED AND ON MOVEMENT-LIVER BIOPSY WAS DONE AT [facility] BEFORE DISCHARGE AND DRESSING IN PLACE. ALSO REPORTS HX OF VERTIGO AND DOUBLE VISION ON/OFF. DENIES N/V/D. ALSO FOUND IN IMAGING ARE THE PROBLEMS LISTED BELOW AND HAS BEEN REFERRED TO [facility] FOR ONCOLOGY TREATMENT PER INPATIENT 'S NOTES FROM [facility]. PT REPORTS HE WAS CLEAN FOR 2 YEARS AND RELAPSED ON ALCOHOL FOR ONLY 3 DAYS AND WAS MANDATED BY HIS HOUSING AT [facility] TO GO TO TREATMENT BEFORE COMING HERE. PT REPORTS HIS MEDICAL CONDITION APPEARS VERY SERIOUS NOW AND WOULD WANT TO START TREATMENT AT [facility] SOON POSSIBLE. PT REPORTS UNABLE TO PARTICIPATE WITHOUT UNDUE DIFFICULTY IN REHAB UNIT ACTIVITIES DUE TO PHYSICAL DISCOMFORT. PT'S CASE HAS BEEN PRESENTED TO THE RESEARCH RECRUITER, RUDY WEEKS WHO WITH FOLLOW UP WITH COUNSELING/EXCHANGE MECHANIC FOR APPROPRIATE REFERRAL BACK TO HIS HOUSING AT [facility] AND FOLLOW UP WITH [facility] FOR MEDICAL CARE. ADDENDUM;BELOW IS DOCUMENT NOTE FROM INPATIENT([facility]) Imaging - Results Cat Scan: Report Reviewed, Image Reviewed (metastatic pancreatic cancer, carcinomatosis, hepatic and splenic lesions) Problem List - Problems (1) Metastases to the liver Assessment/Plan: No acute surgical intervention. Discharge at the discretion of the primary. Code(s): C78.7 - SECONDARY MALIG NEOPLASM OF LIVER AND INTRAHEPATIC BILE DUCT (2) Alcohol dependence with uncomplicated withdrawal Code(s): F10.230 - ALCOHOL DEPENDENCE WITH WITHDRAWAL, UNCOMPLICATED (3) Anxiety and depression Code(s): F41.8 - OTHER SPECIFIED ANXIETY DISORDERS (4) COPD (chronic obstructive pulmonary disease) Code(s): J44.9 - CHRONIC OBSTRUCTIVE PULMONARY DISEASE, UNSPECIFIED (5) Psoriasis Code(s): L40.9 - PSORIASIS, UNSPECIFIED (6) Syncope Code(s): R55 - SYNCOPE AND COLLAPSE Qualifiers: Syncope type: unspecified Qualified Code(s): R55 - Syncope and collapse Vital Signs - 24 hr 10/27/18 10/27/18 10/28/18 20:29 23:38 00:30 Temperature 99.3 F 98.1 F Pulse Rate 98 H 99 H Respiratory 18 18 18 Rate Blood Pressure 122/73 124/71 10/28/18 10/28/18 03:30 07:48 Temperature 97.7 F Pulse Rate 93 H Respiratory 18 16 Rate Blood Pressure 113/65 ABDOMEN:TENDER ON MOVEMENT; DRESSING TO LEFT LATERAL SITE-S/P LIVER BIOPSY. PLAN: ABOVE TO FOLLOW UP WITH COUNSELLOR/PUBLIC SAFETY TEACHER. COUNSELLOR TO FOLLOW UP WITH [employer] [facility]ING CASE MANAGEMENT FOR UPDATE/ CARE PLANNING. D/C TYLENOL D/C MOTRIN BACLOFEN PRN DIRECTED.
[2018-10-28] MEDS: ENOXAPARIN SQ SCH (13:51)
[2018-10-28] MEDS: BACLOFEN 10 MG TABLET (FP) PO PRN (19:47)
[2018-10-28] MEDS: THIAMINE HCL 100 MG TABLET (FP) PO SCH (21:15)
[2018-10-28] MEDS: MELATONIN 5 MG TABLETS PO PRN (21:15)
[2018-10-28] MEDS: hydrOXYzine PAMOATE 50 MG CAPSULE (FP) PO PRN (21:15)
[2018-10-28] MEDS: SUVOREXANT 10 MG TABLET PO PRN (22:20)
[2018-10-29] MEDS ORDERED: ACETAMINOPHEN 325 MG TABLET (FP) PO ONE (00:22)
[2018-10-29] MEDS: METHADONE HCL 40 MG DISPERSABLE TABLET PO SCH (06:09)
[2018-10-29] MEDS: LACTULOSE 20 GM/30 ML UDC (FOR ORAL USE ONLY) PO SCH ×5 (10:25→21:22)
[2018-10-29] MEDS: PANTOPRAZOLE 20 MG TABLET (FP) PO SCH (10:25)
[2018-10-29] MEDS: PRENATAL VITAMINS W/ FOLIC ACID TABLET (FP) PO SCH (10:25)
[2018-10-29] MEDS: LIDOCAINE 5% TOPICAL PATCH TP SCH (10:25)
[2018-10-29] MEDS: ENOXAPARIN SQ SCH (10:26)
[2018-10-29] MEDS: hydrOXYzine PAMOATE 50 MG CAPSULE (FP) PO PRN (10:54)
[2018-10-29] MEDS: BACLOFEN 10 MG TABLET (FP) PO PRN (10:54)
--- NOTE | 2018-10-29 12:02 | PN ---
[facility] Progress Note Note: SAW PT IN ROOM SITTING ON CHAIR. IN NAD BUT REPORTED PAIN LAST NIGHT AND UNABLE TO SLEEP WELL DUE TO LIVER BX SITE/ABDOMINAL PAIN. ALERT O X 3. PT REPORTS HE HAD JUST MOVED TO THE [place] BUT WAS WITH RACHNA AGUILAR FOR MEDICAL MANAGEMENT AND WILL NOT BE GOING BACK THERE SO "IT DOESN'T REALLY MATTER BECAUSE I WILL BE WITH ANOTHER DR NOW IN THE [place]". PT STATES HE WILL BE GOING TO [facility] INSTEAD, STATING THAT [facility] DOES NOT ACCEPT HIS INSURANCE. SPOKE TO HAILEY CRAIG ABOUT CASE MANAGEMENT INVOLVEMENT TOWARDS PT'S DISCHARGE PLANNING TO [place] AND FOLLOW UP TREATMENT. Vital Signs - 24 hr 10/29/18 10/29/18 03:30 06:50 Temperature 98.1 F Pulse Rate 65 Respiratory 18 18 Rate Blood Pressure 101/71 LABS/SCANS WERE DONE AT [facility] INPATIENT. COPIES/MEDICAL HX FAXED BY DIRECTOR OF MATERIALS TO [facility] [facility]. UPDATE OF 1:00 P.M 10/29/18: SPOKE WITH DIRECTOR OF MATERIALS ON [address] [place] [address], SUNITA ANTONIAAniketHARLAN WHO HAS FOLLOWED UP WITH THE PTS' D/C PLANNING. MS RETA Stoner WAS IN CONTACT WITH [facility] [facility] [employer] AND FIRST ONCOLOGY APPOINTMENT HAS BEEN MADE FOR PT ON Thursday11/01/18 AT 9: 30 A.M TO [facility]. PT WILL COORDINATE WITH [facility] [facility] STAFF FOR ASSISTANCE TO TREATMENT. PT REPORTS DISCHARGE REFERRAL PACKAGE FROM [facility] WAS GIVEN TO HIM TO TAKE TO HIS APPOINTMENT AND DOCUMENT FAXED TO REFERRAL AGENCY WELL BY DIRECTOR OF MATERIALS. DR. HERNANDEZ, [facility] INFORMED AND IS AWARE OF THIS UPDATE.
[2018-10-29] MEDS: BACLOFEN 10 MG TABLET (FP) PO SCH ×2 (14:28→21:20)
[2018-10-29] MEDS: THIAMINE HCL 100 MG TABLET (FP) PO SCH (21:20)
[2018-10-29] MEDS: SUVOREXANT 10 MG TABLET PO PRN (21:22)
[2018-10-29] MEDS: LIDOCAINE PATCH REMOVAL MC SCH (22:20)
[2018-10-30] MEDS: BACLOFEN 10 MG TABLET (FP) PO SCH ×3 (06:17→21:07)
[2018-10-30] MEDS: METHADONE HCL 40 MG DISPERSABLE TABLET PO SCH (06:18)
[2018-10-30] MEDS: PRENATAL VITAMINS W/ FOLIC ACID TABLET (FP) PO SCH (09:40)
[2018-10-30] MEDS: LACTULOSE 20 GM/30 ML UDC (FOR ORAL USE ONLY) PO SCH ×4 (09:40→21:10)
[2018-10-30] MEDS: PANTOPRAZOLE 20 MG TABLET (FP) PO SCH (09:40)
[2018-10-30] MEDS: LIDOCAINE 5% TOPICAL PATCH TP SCH (09:41)
[2018-10-30] MEDS: ENOXAPARIN SQ SCH (09:41)
[2018-10-30 19:20] LABS: EPI CELLS 0.5 /HPF (0-5/HPF); HYALINE CASTS 2 /lpf (0-8); PH,URINE 5.5 (5.0-8.0); URINE APPEARANCE TURBID; URINE BACTERIA 1.1 /hpf (NEGATIVE); URINE BILIRUBIN 1+ (NEGATIVE); URINE COLOR DK YELLOW; URINE GLUCOSE (UA) NEGATIVE (NEGATIVE); URINE KETONE 1+ (NEGATIVE); URINE LEUK ESTERASE TRACE (NEGATIVE); URINE NITRITE NEGATIVE (NEGATIVE); URINE PROTEIN NEGATIVE (NEGATIVE); URINE RBC 3 /hpf (0-4); URINE WBC 1 /hpf (0-5)
[2018-10-30 20:26] LABS: URINE CRYSTALS CALCIUM OXALATE /hpf
[2018-10-30] MEDS: THIAMINE HCL 100 MG TABLET (FP) PO SCH (21:07)
[2018-10-30] MEDS: LIDOCAINE PATCH REMOVAL MC SCH (21:08)
[2018-10-30] MEDS: hydrOXYzine PAMOATE 50 MG CAPSULE (FP) PO PRN (21:08)
[2018-10-30] MEDS: SUVOREXANT 10 MG TABLET PO PRN (21:09)
[2018-10-30] MEDS: P-EPHED 60MG/TRIPROLIDI 2.5MG TABLET PO PRN (21:10)
[2018-10-30] MEDS: MELATONIN 5 MG TABLETS PO PRN (21:58)
[2018-10-31] MEDS: BACLOFEN 10 MG TABLET (FP) PO SCH ×3 (06:23→21:18)
[2018-10-31] MEDS: METHADONE HCL 40 MG DISPERSABLE TABLET PO SCH (06:23)
[2018-10-31] MEDS: LIDOCAINE 5% TOPICAL PATCH TP SCH (09:45)
[2018-10-31] MEDS: LACTULOSE 20 GM/30 ML UDC (FOR ORAL USE ONLY) PO SCH ×4 (09:45→21:18)
[2018-10-31] MEDS: PANTOPRAZOLE 20 MG TABLET (FP) PO SCH (09:46)
[2018-10-31] MEDS: ENOXAPARIN SQ SCH (09:46)
[2018-10-31] MEDS: PRENATAL VITAMINS W/ FOLIC ACID TABLET (FP) PO SCH (09:46)
[2018-10-31 10:34] LABS: HEMATOCRIT 38.7 % (35.4-49); HEMOGLOBIN 12.5 GM/dL (11.7-16.9); MCH 27.5 pg (25.7-33.7); MCHC 32.4 g/dl (32.0-35.9); MEAN CELL VOLUME 84.8 fl (80-96); MEAN PLT VOLUME 8.6 fl (7.5-11.1); PLATELET COUNT 323 K/MM3 (134-434); RBC 4.56 M/mm3 (4.00-5.60); RDW 15.4 % (11.9-15.9); WHITE BLOOD COUNT 7.3 K/mm3 (4.0-10.0)
[2018-10-31 10:49] LABS: ALBUMIN 3.4 g/dl (3.4-5.0); BILIRUBIN,TOTAL 0.5 mg/dL (0.2-1); BLOOD UREA NITROGEN 8.2 mg/dL (7-18); CALCIUM 9.2 mg/dL (8.5-10.1); CREATININE 0.6 mg/dL (0.55-1.3); POTASSIUM 4.4 mmol/L (3.5-5.1); TOT PROT 7.8 g/dl (6.4-8.2)
[2018-10-31 10:52] LABS: INR 1.2 (0.83-1.09); PROTHROMBIN TIME (PATIENT) 14.2 SEC (9.7-13.0)
--- NOTE | 2018-10-31 13:01 | EKG ---
Test Reason : Blood Pressure : / mmHG Vent. Rate : 095 BPM Atrial Rate : 095 BPM P-R Int : 154 ms QRS Dur : 096 ms QT Int : 364 ms P-R-T Axes : 040 026 055 degrees QTc Int : 457 ms NORMAL SINUS RHYTHM NORMAL ECG WHEN COMPARED WITH ECG OF 20-OCT-2018 08:43, NO SIGNIFICANT CHANGE WAS FOUND Confirmed by TAIWO CAMARGO MD ([id number]) on 10/31/2018 1:01:37 PM Referred By: Confirmed By:TAIWO CAMARGO MD
[2018-10-31] MEDS: LIDOCAINE PATCH REMOVAL MC SCH (21:18)
[2018-10-31] MEDS: THIAMINE HCL 100 MG TABLET (FP) PO SCH (21:18)
[2018-10-31] MEDS: MELATONIN 5 MG TABLETS PO PRN (21:18)
[2018-10-31] MEDS: P-EPHED 60MG/TRIPROLIDI 2.5MG TABLET PO PRN (21:30)
[2018-11-01] MEDS: METHADONE HCL 40 MG DISPERSABLE TABLET PO SCH (05:59)
[2018-11-01] MEDS: BACLOFEN 10 MG TABLET (FP) PO SCH (06:00)
[2018-11-01 06:23] VITALS: BP 129/66; PULSE 85; TEMP 97.6
[2018-11-01] MEDS ORDERED: ENOXAPARIN SQ SCH (08:00)
--- NOTE | 2018-11-01 09:20 | PN ---
[facility] Progress Note (SOAP) Subjective: PT DISCHARGED TODAY TO FOLLOW UP WITH HIS FIRST ONCOLOGY APPOINTMENT AT [facility] AT 9:30 A.M TODAY. PT HAS BEEN REFERRED BACK TO HIS RESIDENCE AT [facility] FOR CARE COORDINATION. PT IS REFERRED BACK TO [facility] TO CONTINUE CD AFTERCARE. PT IS ALERT O X 3. DENIES S/H/I. AMBULATING WITH WALKER. Objective: 11/01/18 14:01 Vital Signs - 24 hr 11/01/18 11/01/18 11/01/18 00:30 03:30 06:22 Temperature 97.6 F Pulse Rate 85 Respiratory 18 18 16 Rate Blood Pressure 129/66 Laboratory Tests 10/30/18 10/31/18 10/31/18 14:15 08:00 08:00 WBC 7.3 RBC 4.56 Hgb 12.5 Hct 38.7 MCV 84.8 MCH 27.5 MCHC 32.4 RDW 15.4 Plt Count 323 MPV 8.6 PT with INR INR Sodium 134 L Potassium 4.4 Chloride 96 L Carbon Dioxide 28 Anion Gap 9 BUN 8.2 Creatinine 0.6 Est GFR (CKD-EPI)AfAm 132.11 Est GFR (CKD-EPI)NonAf 113.99 Random Glucose 94 Calcium 9.2 Total Bilirubin 0.5 AST 49 H ALT 32 Alkaline Phosphatase 415 H Total Protein 7.8 Albumin 3.4 Urine Color Dk yellow Urine Appearance Turbid Urine pH 5.5 D Ur Specific [place] 1.032 Urine Protein Negative Urine Glucose (UA) Negative Urine Ketones 1+ H Urine Blood Negative Urine Nitrite Negative Urine Bilirubin 1+ H Urine Urobilinogen 1.0 Ur Leukocyte Esterase Trace Urine WBC (Auto) 1 Urine RBC (Auto) 3 Urine Casts (Auto) 2 U Epithel Cells (Auto) 0.5 Urine Crystals (Auto) Calcium oxalate Urine Bacteria (Auto) 1.1 10/31/18 08:15 WBC RBC Hgb Hct MCV MCH MCHC RDW Plt Count MPV PT with INR 14.20 H INR 1.20 H Sodium Potassium Chloride Carbon Dioxide Anion Gap BUN Creatinine Est GFR (CKD-EPI)AfAm Est GFR (CKD-EPI)NonAf Random Glucose Calcium Total Bilirubin AST ALT Alkaline Phosphatase Total Protein Albumin Urine Color Urine Appearance Urine pH Ur Specific [place] Urine Protein Urine Glucose (UA) Urine Ketones Urine Blood Urine Nitrite Urine Bilirubin Urine Urobilinogen Ur Leukocyte Esterase Urine WBC (Auto) Urine RBC (Auto) Urine Casts (Auto) U Epithel Cells (Auto) Urine Crystals (Auto) Urine Bacteria (Auto) LABS NOTED. COPIES GIVEN TO PT FOR DISCHARGE/FOLLOW UP CARE. 11/01/18 14:09 Home Medications Medication Instructions Recorded Aspirin 81 mg PO DAILY 10/21/18 Atorvastatin Ca [Lipitor] 80 mg PO HS 10/21/18 Folic Acid - 1 mg PO DAILY #30 tablet 10/27/18 Mag Hydrox/Al Hydrox/Simeth 30 ml PO Q6HPO PRN ml 10/27/18 [MAALOX *SUSPENSION* -] Methadone [Dolophine -] 80 mg PO DAILY@0600 tablet MDD 80 10/27/18 Thiamine HCl [Vitamin B1 -] 100 mg PO DAILY tablet 10/27/18 Enoxaparin [Lovenox -] 135 mg SQ DAILY 7 Days disp.syrin 10/30/18 Lactulose 20 gm PO TID 14 Days solution 10/31/18 Pantoprazole Sodium [Protonix -] 20 mg PO DAILY #14 tablet.ec 10/31/18 Assessment: 11/01/18 14:01 NAD MEDICALLY STABLE Plan: FOLLOW UP WITH CD AFTERCARE RECOMMENDATIONS FOLLOW UP WITH [facility] FOR MEDICAL MANAGEMENT AT 9:30 A.M TODAY ARRANGED. D/W PT TO TAKE MEDICATION RX TO HIS APPOINTMENT FOR ANY ADJUSTMENT BY HIS PROVIDER TO HIS MEDICATIONS. PT WAS GIVEN RX SCRIPTS FOR LACTULOSE, PROTONIX AND LOVENOX DUE TO THE ELECTRONIC ORDER PROBLEMS.
== END 2018-11-01 08:27 | disposition home or self-care (01) | DRG 772 ==
LOC: YASAS 19:01 → Y5N 21:53
PROVIDERS: ADMIT Neuromusculoskeletal Medicine & OMM; ATTEND Neuromusculoskeletal Medicine & OMM
PROC: HZ42ZZZ Group Counseling for Substance Abuse Treatment, Cognitive-Behavioral (ICD-10-PCS; principal; 2018-10-27)
DX: F10.20 Alcohol dependence, uncomplicated (principal); F11.20 Opioid dependence, uncomplicated; F13.20 Sedative, hypnotic or anxiolytic dependence, uncomplicated; F19.282 Other psychoactive substance dependence with psychoactive substance-induced sleep disorder; F41.9 Anxiety disorder, unspecified; C25.7 Malignant neoplasm of other parts of pancreas; C78.7 Secondary malignant neoplasm of liver and intrahepatic bile duct; R55 Syncope and collapse; L40.9 Psoriasis, unspecified; J44.9 Chronic obstructive pulmonary disease, unspecified; K66.8 Other specified disorders of peritoneum; Z86.718 Personal history of other venous thrombosis and embolism; Z86.711 Personal history of pulmonary embolism; Z79.01 Long term (current) use of anticoagulants
CPT/HCPCS: 36415; 80053; 81003; 85027; 85610; 93005; 93010; J0475

== ENCOUNTER 2018-11-17 12:32 | Inpatient (IN) | payer OTHER ==
[2018-11-17] MEDS ORDERED: morphine CARPU-JECT 2 MG/1 ML DISP.SYRIN IVPUSH ONE ×2 (15:22→15:38)
[2018-11-17] MEDS ORDERED: morphine CARPU-JECT 2 MG/1 ML DISP.SYRIN IM ONE ×2 (15:23)
[2018-11-17] MEDS ORDERED: MORPHINE SULFATE 2 MG/ML VIAL ONE ×2 (15:26→17:51)
[2018-11-17] MEDS ORDERED: morphine SULFATE 4 MG/ML VIAL ONE ×3 (15:29→21:39)
--- NOTE | 2018-11-17 15:47 | PDOC ---
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 Patient was diagnosed with CA last month and hepatic biopsy done last month. Patient was advised to follow-up with Dr. Simon after admission last month when he was diagnosed but report had to move to [place] due to housing issue and tried to follow-up with oncology in [facility] but oncologist wanted to redo all cancer work-up with hepatic biopsy because he did not have previous records so patient declined to have work-up redone again and decided to come back here for CA treated as he was diagnosed here. Patient report severe epigastric and RUQ pain. Patient on methadone for opiate dependence which he indicates helped with pain for few hours and comes back. Denies N/V, diarrhea, constipation, fever, chills Timing/Duration: other (1 month) Past History - Past Medical History Allergies/Adverse Reactions: Allergies Allergy/AdvReac Type Severity Reaction Status Date / Time No Known Allergies Allergy Verified 11/17/18 12:40 Home Medications: Ambulatory Orders Atorvastatin Ca [Lipitor] 80 mg PO HS 10/21/18 Folic Acid - 1 mg PO DAILY #30 tablet 10/27/18 Mag Hydrox/Al Hydrox/Simeth [MAALOX *SUSPENSION* -] 30 ml PO Q6HPO PRN ml 10/27 Methadone [Dolophine -] 80 mg PO DAILY@0600 tablet MDD 80 10/27/18 Thiamine HCl [Vitamin B1 -] 100 mg PO DAILY tablet 10/27/18 Enoxaparin [Lovenox -] 135 mg SQ DAILY 14 Days disp.syrin 10/30/18 Lactulose 20 gm PO TID 14 Days solution 10/31/18 Pantoprazole Sodium [Protonix -] 20 mg PO DAILY #14 tablet.ec 10/31/18 Anemia: No Asthma: No Cancer: Yes (stomach to pancreas/ liver onc in [facility]) Cardiac Disorders: No CVA: No COPD: Yes CHF: No DVT: No Dementia: No Diabetes: No Dialysis: No GI Disorders: No Disorders: No HTN: No Hypercholesterolemia: No Kidney Stones: No Liver Disease: No Psychiatric Problems: No Seizures: No Thyroid Disease: No Lung CA: No Other medical history: Hep C - Surgical History Abdominal Surgery: Yes (R inguinal hernia.) Appendectomy: No Cardiac Surgery: No Cholecystectomy: No Gastric Stapling: No GI Surgery: No Lung Surgery: No Neurologic Surgery: No Orthopedic Surgery: No - Reproductive History Testicular Surgery: No - Immunization History Immunization Up to Date: Yes - Suicide/Smoking/Psychosocial Hx Smoking History: Former smoker Have you smoked in the past 12 months: No Number of Cigarettes Smoked Daily: 20 Cigars Per Day: 0 Information on smoking cessation initiated: No 'Breaking Loose' booklet given: 10/27/18 Hx Alcohol Use: Yes Drug/Substance Use Hx: Yes Substance Use Type: Alcohol, Prescribed (MTD) Hx Substance Use Treatment: Yes ([facility]J) Review of Systems - Review of Systems Able to Perform ROS?: Yes Is the patient limited Indonesian proficient: No Constitutional: No: Chills, Fever, Malaise HEENTM: No: Symptoms Reported Respiratory: No: Symptoms reported Cardiac (ROS): No: Symptoms Reported ABD/GI: Yes: Symptoms Reported, See HPI, Abdominal cramping (epigastric and RUQ pain). No: Abdominal Distended, Constipated, Diarrhea, Nausea, Vomiting, Tarry Stools : No: Burning, Frequency, Urgency Musculoskeletal: No: Symptoms Reported Neurological: No: Dizziness All Other Systems: Reviewed and Negative *Physical Exam - Vital Signs Last Vital Signs Temp Pulse Resp BP Pulse Ox 98.2 F 100 H 20 117/78 94 L 11/17/18 12:43 11/17/18 12:43 11/17/18 12:43 11/17/18 12:43 11/17/18 12:43 - Physical Exam General Appearance: Yes: Nourished, Appropriately Dressed, Apparent Distress, Moderate Distress HEENT: positive: [place], Normal ENT Inspection. negative: Pale Conjunctivae, Other (no jaundice) Neck: positive: Supple Respiratory/Chest: positive: Lungs Clear, Normal Breath Sounds. negative: Respiratory Distress, Accessory Muscle Use Cardiovascular: positive: Regular Rhythm, Regular Rate Gastrointestinal/Abdominal: positive: Normal Bowel Sounds, Tender (moderate epigastric TTP), Flat, Soft. negative: Organomegaly, Protuberent, Guarding, Rebound Musculoskeletal: positive: Normal Inspection. negative: CVA Tenderness Extremity: positive: Normal Capillary Refill, Normal Inspection. negative: Cyanosis Integumentary: positive: Normal Color. 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 Patient was diagnosed with CA last month and hepatic biopsy done last month. Patient was advised to follow-up with Dr. Simon after admission last month when he was diagnosed but report had to move to [place] due to housing issue and tried to follow-up with oncology in [facility] but oncologist wanted to redo all cancer work-up with hepatic biopsy because he did not have previous records so patient declined to have work-up redone again and decided to come back here for CA treated as he was diagnosed here. Patient report severe epigastric and RUQ pain. Patient on methadone for opiate dependence which he indicates helped with pain for few hours and comes back. Denies N/V, diarrhea, constipation, fever, chills Exam significant for moderate TTP to epigastric region w/o rebound or Guarding. Called and spoke to hem oncologist Dr. Simon who indicates patient should call office tomorrow to make apt to see him for CA tx or will see patient as a consult if patient is admitted . CBC,CMP, lipase labs ordered to evaluate acute hepatic patholoy. Morphine 4mg IV ordered for pain. Patient signed out to PM provider Latisha for f/u care *DC/Admit/Observation/Transfer Diagnosis at time of Disposition: Metastases to the liver Pancreatic cancer Qualifiers: Pancreatic malignancy location: tail of pancreas Qualified Code(s): C25.2 - Malignant neoplasm of tail of pancreas Abdominal pain Qualifiers: Abdominal location: unspecified location Qualified Code(s): R10.9 - Unspecified abdominal pain - Discharge Dispostion Condition at time of disposition: Stable - Referrals Referrals: Memo Simon MD [Staff Physician] - - Patient Instructions - Post Discharge Activity
[2018-11-17 16:14] LABS: BASO % 0.7 % (0-2.0); EOS % 1.1 % (0-4.5); HEMATOCRIT 39.6 % (35.4-49); HEMOGLOBIN 12.7 GM/dL (11.7-16.9); LYMPH % 21.5 % (8-40); MCH 26.6 pg (25.7-33.7); MEAN PLT VOLUME 8.5 fl (7.5-11.1); MONO % 12.3 % (3.8-10.2); NEUT % 64.4 % (42.8-82.8); PLATELET COUNT 281 K/MM3 (134-434); RBC 4.77 M/mm3 (4.00-5.60); RDW 15.5 % (11.9-15.9); WHITE BLOOD COUNT 8.9 K/mm3 (4.0-10.0)
[2018-11-17] MEDS ORDERED: ACETAMINOPHEN 1000 MG/100 ML VIAL (NON FORMULARY) IVPB ONE (16:31)
[2018-11-17] MEDS ORDERED: morphine CARPU-JECT 4 MG/1 ML DISP.SYRIN IVPUSH ONE ×2 (16:31→21:31)
[2018-11-17] MEDS ORDERED: ACETAMINOPHEN INJECTION 100 ML IVPB ONE (17:51)
[2018-11-17 18:15] LABS: ALBUMIN 3.4 g/dl (3.4-5.0); BILIRUBIN,TOTAL 0.7 mg/dL (0.2-1); BLOOD UREA NITROGEN 7.9 mg/dL (7-18); CALCIUM 9.1 mg/dL (8.5-10.1); CREATININE 0.7 mg/dL (0.55-1.3); POTASSIUM 5.8 mmol/L (3.5-5.1)
[2018-11-17] MEDS ORDERED: SODIUM CHLORIDE 1,000 ML IV STA (19:01)
[2018-11-17] MEDS ORDERED: DEXTROSE 50%-WATER - 25 GM/50 ML VIAL IVPUSH ONE (19:05)
[2018-11-17] MEDS ORDERED: INSULIN REGULAR HUMAN 100 UNITS/ML *VIAL IVPUSH ONE (19:05)
[2018-11-17] MEDS ORDERED: DEXTROSE 50%-WATER 25 GM/50 ML DISP.SYRIN ONE (19:09)
[2018-11-17] MEDS ORDERED: INSULIN REGULAR HUMAN 100 UNITS/ML *VIAL ONE (19:09)
--- NOTE | 2018-11-17 19:59 | PDOC ---
*Physical Exam - Vital Signs Last Vital Signs Temp Pulse Resp BP Pulse Ox 98.2 F 100 H 20 117/78 94 L 11/17/18 12:43 11/17/18 12:43 11/17/18 12:43 11/17/18 12:43 11/17/18 12:43 ED Treatment Course - LABORATORY CBC & Chemistry Diagram: 11/17/18 15:24 11/17/18 19:55 - ADDITIONAL ORDERS Additional order review: Laboratory Results 11/17/18 11/17/18 17:20 15:24 Sodium 133 L Cancelled Potassium 5.8 H Cancelled Chloride 93 L Cancelled Carbon Dioxide 33 H Cancelled Anion Gap 7 L Cancelled BUN 7.9 Cancelled Creatinine 0.7 Cancelled Est GFR (CKD-EPI)AfAm 124.00 Cancelled Est GFR (CKD-EPI)NonAf 106.99 Cancelled Random Glucose 87 Cancelled Calcium 9.1 Cancelled Total Bilirubin 0.7 Cancelled AST 102 H Cancelled ALT 68 H Cancelled Alkaline Phosphatase 674 H Cancelled Total Protein 8.0 Cancelled Albumin 3.4 Cancelled Lipase 114 Cancelled 11/17/18 15:24 RBC 4.77 MCV 83.0 MCHC 32.0 RDW 15.5 MPV 8.5 Neutrophils % 64.4 Lymphocytes % 21.5 D Monocytes % 12.3 H Eosinophils % 1.1 Basophils % 0.7 - RADIOLOGY Radiology Studies Ordered: Category Date Time Status ABDOMEN & PELVIS CT WITH CONTR [CT] Stat CT Scan 11/17/18 19:05 Ordered - Medications Given in the ED: ED Medications Discontinued Medications Generic Name Dose Route Start Last Admin Trade Name Kayla PRN Reason Stop Dose Admin Acetaminophen 1,000 mg 11/17/18 16:31 11/17/18 18:02 Ofirmev Injection - IVPB 11/17/18 16:32 1,000 mg ONCE ONE Administration Dextrose 25 gm 11/17/18 19:05 11/17/18 19:19 D50w (Vial) - IVPUSH 11/17/18 19:06 25 gm NOW ONE Administration Insulin Human Regular 5 units 11/17/18 19:05 11/17/18 19:19 Novolin R Vial *For Ivpush Or Iv Drip Only* IVPUSH 11/17/18 19:06 5 units ONCE ONE Administration Morphine Sulfate 2 mg 11/17/18 15:23 11/17/18 16:01 Morphine Injection - IM 11/17/18 15:24 Not Given ONCE ONE Morphine Sulfate 4 mg 11/17/18 15:23 11/17/18 16:01 Morphine Injection - IM 11/17/18 15:24 Not Given ONCE ONE Morphine Sulfate 4 mg 11/17/18 15:38 11/17/18 15:39 Morphine Injection - IVPUSH 11/17/18 15:39 4 mg ONCE ONE Administration Morphine Sulfate 6 mg 11/17/18 16:31 11/17/18 18:01 Morphine Injection - IVPUSH 11/17/18 16:32 6 mg ONCE ONE Administration Medical Decision Making - Medical Decision Making Patient signed out to me by LIZZY Mirza Patient was in 11/17 when initially evaluated so was given Morphine 6 mg and IV Tylenol, with improvement in pain Labs came back with K of 5.8 and LFTs more elevated than previous labs EKG shows NSR at 93 bmp, no peaked T waves Given IV insulin, D50 for hyperkalemia D/W Dr. Becerra - also recommends CT A/P and likely admission 11/17/18 19:[address] A/P shows development of moderate ascites since 10/21/18; no other significant changes noted 11/17/18 22:05 *DC/Admit/Observation/Transfer Diagnosis at time of Disposition: Metastases to the liver Pancreatic cancer Qualifiers: Pancreatic malignancy location: tail of pancreas Qualified Code(s): C25.2 - Malignant neoplasm of tail of pancreas - Discharge Dispostion Condition at time of disposition: Stable Decision to Admit order: Yes - Referrals Referrals: Memo Simon MD [Staff Physician] - - Patient Instructions - Post Discharge Activity
[2018-11-17 21:13] LABS: BLOOD UREA NITROGEN 6.3 mg/dL (7-18); CALCIUM 8.4 mg/dL (8.5-10.1); CREATININE 0.7 mg/dL (0.55-1.3); POTASSIUM 3.9 mmol/L (3.5-5.1)
[2018-11-17] MEDS ORDERED: HYDROmorphone HCl 2 MG/ML VIAL IVPUSH PRN (23:17)
--- NOTE | 2018-11-17 23:29 | PN ---
Teaching Attending Note Name of Resident: Mehdi Zuleta ATTENDING PHYSICIAN STATEMENT I saw and evaluated the patient. I reviewed the resident's note and discussed the case with the resident. I agree with the resident's findings and plan as documented. SUBJECTIVE: Seen and examined; please refer to resident note for further historical information. Briefly, presents with 1 week worsening abdominal pain; recently diagnosed Stage IV Pancreatic Cancer (mets to liver, peritoneal carcinomatosis, splenic, lung-bx done at [facility]). He is on methadone at home that is not relieving his sx and he doesn't have a painter hand. 10 sys ROS done and negative aside from HPI PMH, PSH, FH, SH reviewed OBJECTIVE: VS, labs, imaging reviewed NAD, AAO, resting in bed NC AT EOMI PERRLA RRR s1/2 no mgr Mild diffuse tenderness with +ascites, mild distention Lungs CTAB, w/ sym exp CN2-12 wnl, no fnd Normal mood, appropriate behavior CBC unremarkable Chemistry with Na 133->131 with Cl 95, hypoglycemia to 58, hypocalcemia, to 8.4 with normal albumin, AST/ALT 102/68 (new), Alk phos elevated in past but now higher 674. Normal lipase. CT abdomen/pelvis with moderate ascites compared to 10/21 and little change in the L-pleural effusion, pancreatic tail mass, hepatic mets, and pelvic LN Liver bx shows malignant neoplasm on surgical pathology ASSESSMENT AND PLAN: Patient presents with intractable pain likely related to his malignancy; found to have hyponatremia, transaminitis, and electrolyte disturbances. He was recently treated for alcohol/BZD abuse at [facility]. 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 PRN miralax QD with daily BID doc/senna for bowel reg-concern for ileus noted in past. Given the development of ascites, though they are not tense, we will refer to IR for paracentesis and can send out fluid studies at that time; this likely represents malignant ascites from his pancreatic cancer. For his cancer, we will consult Dr. Simon; he now wishes to follow here instead of [facility]. He tells us that he had a lung bx done there so we will attempt to obtain said records. He denies current alcohol abuse and is noted to have new transaminitis; checking RUQ US and consulting GI (has seen Dr. Goldstein in past) He was given insulin/D50 in the ER for mild hyperkalemia (resolved) with initial glucose of 80 and at 7PM is documented of glucose 50 with no recheck; will recheck STAT and administer further dextrose as needed and continue with q4H glucose checks overnight. Of note is he has a positive HCV Ab; unsure if he has ever been treated or had a quantitative viral load checked. Needs non-urgent followup.
[2018-11-17] MEDS ORDERED: SODIUM CHLORIDE 1,000 ML IV SCH (23:30)
[2018-11-18 00:01] VITALS: BMI 28.5
--- NOTE | 2018-11-18 00:50 | HP ---
CHIEF COMPLAINT: epigastric pain PCP: HISTORY OF PRESENT ILLNESS: 53M with pmh of chronic tobacco use, chronic EtOH use, HCV s/p interferon tx, vertigo, h/o DVT, h/o RUL PE, newly diagnosed pancreatic CA with mets to liver/ peritoneal carcinomatosis; presents with complaint of increasing severity of abdominal pain for several days radiating up to chest and down to groin. Has mild nausea. States that he has been having abodminal pain since his initial pancreatic Ca dx, ~1mo prior. Has constipation, last BM 2-3d prior. Decreased appetite, food tastes bad. Denies weight loss. Ambulates with FWW at home. He has been told by a [facility] physician that with chemo, has about 2ys to live. States that he values quality of life. ER course was notable for: (1) CT A/P with no change in known pancreatic tail mass, liver mets, Left-sided pleural effusion (2) s/p morphine, ofirmev (3) given D25g/insulin for hyperkalemia Recent Travel: PAST MEDICAL HISTORY: chronic tobacco use, chronic EtOH use, HCV s/p interferon tx, vertigo, h/o DVT, h/o RUL PE, newly diagnosed pancreatic CA PAST SURGICAL HISTORY: hernia surgery Social History: Smokinpackyear; quit 6mo prior Alcohol: 6pk, 3-4x/weekly; 2ys quit Drugs: heroin; quit Family History: dad with colon Ca Allergies: No Known Allergies Allergy (Verified 11/17/18 12:40) HOME MEDICATIONS: Home Medications Medication Instructions Recorded Atorvastatin Ca [Lipitor] 80 mg PO HS 10/21/18 Folic Acid - 1 mg PO DAILY #30 tablet 10/27/18 Mag Hydrox/Al Hydrox/Simeth 30 ml PO Q6HPO PRN ml 10/27/18 [MAALOX *SUSPENSION* -] Methadone [Dolophine -] 80 mg PO DAILY@0600 tablet MDD 80 10/27/18 Thiamine HCl [Vitamin B1 -] 100 mg PO DAILY tablet 10/27/18 Enoxaparin [Lovenox -] 135 mg SQ DAILY 14 Days disp.syrin 10/30/18 Lactulose 20 gm PO TID 14 Days solution 10/31/18 Pantoprazole Sodium [Protonix -] 20 mg PO DAILY #14 tablet.ec 10/31/18 REVIEW OF SYSTEMS CONSTITUTIONAL: loss of appetite Absent: fever, chills, diaphoresis, generalized weakness, malaise, weight change HEENT: Absent: nasal congestion, throat pain, throat swelling, difficulty swallowing, mouth swelling, visual changes CARDIOVASCULAR: Absent: chest pain, syncope, palpitations, irregular heart rate, lightheadedness , peripheral edema RESPIRATORY: Absent: cough, shortness of breath, wheezing, stridor GASTROINTESTINAL: abd pain, constipation Absent: abdominal distension, nausea, vomiting, diarrhea, melena, hematochezia GENITOURINARY: Absent: dysuria, frequency, urgency, hesitancy, hematuria, flank pain, genital pain MUSCULOSKELETAL: Absent: myalgia, arthralgia, joint swelling, back pain, neck pain SKIN: Absent: rash, itching, pallor HEMATOLOGIC/IMMUNOLOGIC: Absent: easy bleeding, easy bruising, lymphadenopathy, frequent infections ENDOCRINE: Absent: unexplained weight gain, unexplained weight loss NEUROLOGIC: Absent: headache, focal weakness or paresthesias, dizziness, unsteady gait, seizure, mental status changes, bladder or bowel incontinence PSYCHIATRIC: Absent: anxiety, depression PHYSICAL EXAMINATION Vital Signs - 24 hr 11/17/18 11/17/18 11/17/18 12:43 21:32 23:15 Temperature 98.2 F 98.1 F Pulse Rate 100 H 95 H Pulse Rate [ 95 H Apical] Respiratory 20 18 18 Rate Blood Pressure 117/78 124/69 Blood Pressure 115/67 [Right Arm] O2 Sat by Pulse 94 L 95 95 Oximetry (%) GENERAL: Awake, alert, and fully oriented, in no acute distress. HEAD: Normal with no signs of trauma. Mild temporal wasting EYES: Pextraocular movements intact, sclera anicteric, conjunctiva clear. No jaundice EARS, NOSE, THROAT: Ears normal, nares patent. Moist mucous membranes. NECK: Normal range of motion, supple without lymphadenopathy, JVD, or masses. LUNGS: Breath sounds equal, mild wheezes bilaterally. No crackles. No accessory muscle use. HEART: Regular rate and rhythm, normal S1 and S2 without murmur, rub or gallop. ABDOMEN: Soft, nontender, not distended, normoactive bowel sounds, no guarding, no rebound, no masses. MUSCULOSKELETAL: Normal range of motion at all joints. No bony deformities or tenderness. No CVA tenderness. UPPER EXTREMITIES: 2+ pulses, warm, well-perfused. No cyanosis. No clubbing. No peripheral edema. LOWER EXTREMITIES: 2+ pulses, warm, well-perfused. No calf tenderness. RLE with 1+ pitting edema. Shuffling short gait NEUROLOGICAL: Normal speech. Shuffling short gait. PSYCHIATRIC: Cooperative. Good eye contact. Appropriate mood and affect. SKIN: Warm, dry, normal turgor, no rashes or lesions noted. Laboratory Results - last 24 hr 11/17/18 11/17/18 11/17/18 15:24 15:24 17:20 WBC 8.9 RBC 4.77 Hgb 12.7 Hct 39.6 MCV 83.0 MCH 26.6 MCHC 32.0 RDW 15.5 Plt Count 281 MPV 8.5 Absolute Neuts (auto) 5.7 Neutrophils % 64.4 Lymphocytes % 21.5 D Monocytes % 12.3 H Eosinophils % 1.1 Basophils % 0.7 Nucleated RBC % 0 Sodium Cancelled 133 L Potassium Cancelled 5.8 H Chloride Cancelled 93 L Carbon Dioxide Cancelled 33 H Anion Gap Cancelled 7 L BUN Cancelled 7.9 Creatinine Cancelled 0.7 Est GFR (CKD-EPI)AfAm Cancelled 124.00 Est GFR (CKD-EPI)NonAf Cancelled 106.99 POC Glucometer Random Glucose Cancelled 87 Calcium Cancelled 9.1 Total Bilirubin Cancelled 0.7 AST Cancelled 102 H ALT Cancelled 68 H Alkaline Phosphatase Cancelled 674 H Total Protein Cancelled 8.0 Albumin Cancelled 3.4 Lipase Cancelled 114 11/17/18 11/18/18 19:55 00:06 WBC RBC Hgb Hct MCV MCH MCHC RDW Plt Count MPV Absolute Neuts (auto) Neutrophils % Lymphocytes % Monocytes % Eosinophils % Basophils % Nucleated RBC % Sodium 131 L Potassium 3.9 Chloride 95 L Carbon Dioxide 32 Anion Gap 4 L BUN 6.3 L Creatinine 0.7 Est GFR (CKD-EPI)AfAm 124.00 Est GFR (CKD-EPI)NonAf 106.99 POC Glucometer 85 Random Glucose 58 L Calcium 8.4 L Total Bilirubin AST ALT Alkaline Phosphatase Total Protein Albumin Lipase ASSESSMENT/PLAN: 53M with pmh of chronic tobacco use, chronic EtOH use, HCV s/p interferon tx, vertigo, h/o DVT, h/o RUL PE, newly diagnosed pancreatic CA with mets to liver/ peritoneal carcinomatosis; presents with complaint of increasing severity of abdominal pain likely 2/2 to intraabdominal cancer. # pancreatic cancer, stage IV >CT A/P(11/17): unchanged pancreatic tail mass, liver mets, abd ascites, abd LAD , Left pleural effusions - hem onc consult: Dr Simon - ECOG 2 # pain control - possible paracentesis - possible palliative v addiction medicine consult # h/o DVT/PE - cw enoxaparin # hyponatremia - fu serum osm - possible paracentesis vs diuresis Mehdi Aikne, DO PGY-1 Medicine, PM-Float [id number] 11/18/18 Visit type - Emergency Visit Emergency Visit: Yes ED Registration Date: 11/17/18 Care time: The patient presented to the Emergency Department on the above date and was hospitalized for further evaluation of their emergent condition. - New Patient This patient is new to me today: Yes Date on this admission: 11/18/18 - Critical Care Critical Care patient: No ATTENDING PHYSICIAN STATEMENT I saw and evaluated the patient. I reviewed the resident's note and discussed the case with the resident. I agree with the resident's findings and plan as documented. SUBJECTIVE: OBJECTIVE: ASSESSMENT AND PLAN:
[2018-11-18] MEDS ORDERED: MORPHINE SULFATE 2 MG/ML VIAL IM PRN (01:35)
[2018-11-18] MEDS: MELATONIN 5 MG TABLETS PO SCH ×2 (02:15→22:14)
[2018-11-18] MEDS: POLYETHYLENE GLYCOL 3350 119 GM BTL PO SCH ×3 (02:26→22:15)
[2018-11-18] MEDS ORDERED: MORPHINE SULFATE 2 MG/ML VIAL IV PRN (03:22)
[2018-11-18] MEDS ORDERED: ZOLPIDEM TARTRATE 5 MG TABLET PO ONE ×2 (03:22→21:40)
[2018-11-18] MEDS ORDERED: METHADONE HCL 40 MG DISPERSABLE TABLET PO SCH (06:00)
[2018-11-18] MEDS ORDERED: METHADONE HCL 40 MG DISPERSABLE TABLET ONE (06:06)
[2018-11-18] MEDS ORDERED: METHADONE HCL 10 MG TABLET ONE (06:06)
[2018-11-18] MEDS ORDERED: METHADONE 80 MG, METHADONE 20 MG PO ONE (06:15)
--- NOTE | 2018-11-18 07:56 | CON.GI ---
Consult Consult Specialty:: GI Referred by:: Hospitalist service Reason for Consultation:: elevated alk phos - History of Present Illness Chief Complaint: Abdominal pain, pancreatic cancer History of Present Illness: 53M with metastatic pancreatic cancer. Diagnosed last month. No treatment as of yet because he moved to the [place], sought treatment at [facility]. States that they did not receive records from [facility], Wanted to repeat biopsy and do nerve block, but he declined. Has persistent upper abdominal pain. CT scan reveals signficant disease burden in the liver - History Source History Provided By: Patient Limitations to Obtaining History: No Limitations - Past Medical History Pulmonary: Yes: Pulmonary Embolus Heme/Onc: Yes: Cancer (Metastatic pancreatic Ca) Psych: Yes: Addictions (heroin, cocaine, etoh) - Alcohol/Substance Use Hx Alcohol Use: Yes History of Substance Use: reports: Cocaine, Heroin - Smoking History Smoking history: Former smoker Have you smoked in the past 12 months: No Aproximately how many cigarettes per day: 20 - Social History Usual Living Arrangement: Alone ADL: Independent Occupation: Unemployed Place of : [facility] History of Recent Travel: No Home Medications - Allergies Allergies/Adverse Reactions: Allergies Allergy/AdvReac Type Severity Reaction Status Date / Time No Known Allergies Allergy Verified 11/17/18 12:40 - Home Medications Home Medications: Ambulatory Orders Atorvastatin Ca [Lipitor] 80 mg PO HS 10/21/18 Folic Acid - 1 mg PO DAILY #30 tablet 10/27/18 Mag Hydrox/Al Hydrox/Simeth [MAALOX *SUSPENSION* -] 30 ml PO Q6HPO PRN ml 10/27 Methadone [Dolophine -] 80 mg PO DAILY@0600 tablet MDD 80 10/27/18 Thiamine HCl [Vitamin B1 -] 100 mg PO DAILY tablet 10/27/18 Enoxaparin [Lovenox -] 135 mg SQ DAILY 14 Days disp.syrin 10/30/18 Lactulose 20 gm PO TID 14 Days solution 10/31/18 Pantoprazole Sodium [Protonix -] 20 mg PO DAILY #14 tablet.ec 10/31/18 Family Disease History - Family Disease History Family Disease History: CA: Father (LIVER) Review of Systems - Review of Systems Constitutional: denies: Diaphoresis, Fever Cardiovascular: denies: Chest Pain Gastrointestinal: reports: Abdominal Pain. denies: Nausea, Vomiting Physical Exam-GI Vital Signs: Vital Signs Temperature 98.1 F 11/18/18 05:50 Pulse Rate 98 H 11/18/18 05:50 Respiratory Rate 18 11/18/18 05:50 Blood Pressure 111/65 11/18/18 05:50 O2 Sat by Pulse Oximetry (%) 95 11/17/18 23:15 Constitutional: Yes: Calm Eyes: No: Sclera Icterus Cardiovascular: Yes: Regular Rate and Rhythm. No: Murmur Respiratory: Yes: CTA Bilaterally Gastrointestinal Inspection: No: Distention ...Auscultate: Yes: Normoactive Bowel Sounds ...Palpate: Yes: Soft, Tenderness (LUQ/RUQ/Epigastrium) ...Percussion: No: Tympanitic Edema: Yes (B/L LE edema with stasis) Neurological: Yes: Alert Labs: CBC, BMP 11/17/18 15:24 11/17/18 19:55 Hepatic Panel Total Bilirubin 0.7 mg/dL (0.2-1) 11/17/18 17:20 AST 102 U/L (15-37) H 11/17/18 17:20 ALT 68 U/L (13-61) H 11/17/18 17:20 Alkaline Phosphatase 674 U/L (45-117) H 11/17/18 17:20 Albumin 3.4 g/dl (3.4-5.0) 11/17/18 17:20 Imaging - Results Cat Scan: Report Reviewed, Image Reviewed Problem List - Problems (1) Abnormal liver function tests Assessment/Plan: Suspect worsening liver chemistries reflective of increasing tumor burden in the liver possibly compunding preexisting liver disease. Patient says that he would not tolerate MRCP to evaluate biliary tract. Obtain abdominal US to assess for biliary tract dilatation Check Hep C quantitative PCR (HCV Ab + last admission) Pain management evaluation Oncology to evaluate Check PT/INR Monitor LFTs Code(s): R94.5 - ABNORMAL RESULTS OF LIVER FUNCTION STUDIES
[2018-11-18 09:39] LABS: BASO % 0.6 % (0-2.0); EOS % 0.6 % (0-4.5); HEMATOCRIT 38.2 % (35.4-49); HEMOGLOBIN 12.3 GM/dL (11.7-16.9); LYMPH % 15.8 % (8-40); MCH 26.7 pg (25.7-33.7); MCHC 32.1 g/dl (32.0-35.9); MEAN CELL VOLUME 83.2 fl (80-96); MEAN PLT VOLUME 8.2 fl (7.5-11.1); MONO % 9.9 % (3.8-10.2); NEUT % 73.1 % (42.8-82.8); RBC 4.59 M/mm3 (4.00-5.60); RDW 15.3 % (11.9-15.9); WHITE BLOOD COUNT 7.8 K/mm3 (4.0-10.0)
[2018-11-18 09:58] LABS: ALBUMIN 3.1 g/dl (3.4-5.0); BILIRUBIN,TOTAL 0.8 mg/dL (0.2-1); BLOOD UREA NITROGEN 6.4 mg/dL (7-18); CALCIUM 8.7 mg/dL (8.5-10.1); CREATININE 0.6 mg/dL (0.55-1.3); POTASSIUM 4.3 mmol/L (3.5-5.1)
[2018-11-18] MEDS ORDERED: ENOXAPARIN NA (PORCINE) 100 MG/1 ML DISP.SYRIN SQ SCH (10:00)
[2018-11-18 10:35] LABS: PLATELET COUNT 237 K/MM3 (134-434)
[2018-11-18] MEDS ORDERED: ENOXAPARIN NA (PORCINE) 40 MG/0.4 ML DISP.SYRIN SQ ONE (10:40)
[2018-11-18] MEDS ORDERED: ENOXAPARIN NA (PORCINE) 100 MG/1 ML DISP.SYRIN SQ ONE (10:41)
[2018-11-18] MEDS: ENOXAPARIN SQ SCH ×3 (10:45→16:45)
[2018-11-18] MEDS: FOLIC ACID 1 MG TABLET (FP) PO SCH (10:47)
[2018-11-18] MEDS: THIAMINE HCL 100 MG TABLET (FP) PO SCH (10:47)
[2018-11-18] MEDS ORDERED: ENOXAPARIN SQ SCH (10:55)
--- NOTE | 2018-11-18 10:55 | CONSULT ---
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 Patient says he went to [facility] a few days ago and they wanted to repeat a Liver biopsy because they did not have access to the [place]'s report. He also said they wanted to do a nerve block. He says he did not want to repeat the liver biopsy and also did not like the oncologist there, so he came here to get the "ball rolling". Patient denies new symptoms except for the abdominal pain he's been having for the past few months. He says the pain is constant and at times not tolerable. He denies other symptoms, including nausea, vomiting, fevers, chills, urinary symptoms, diarrhea, chest pain, sob. former smoker 1 ppd since age 16. Stopped 2 years ago. Former drinker. 2 pints of vodka daily. stopped 10 years ago IV drug use heroin - stopped 2 years ago, now on Methadone hepatitis C treated with interferon (7 years ago) REVIEW OF SYSTEMS: CONSTITUTIONAL: Absent: fever, chills, diaphoresis, generalized weakness, malaise, loss of appetite, weight change HEENT: Absent: rhinorrhea, nasal congestion, throat pain, throat swelling, difficulty swallowing, mouth swelling, ear pain, eye pain, visual changes CARDIOVASCULAR: Absent: chest pain, syncope, palpitations, irregular heart rate, lightheadedness , peripheral edema RESPIRATORY: Absent: cough, shortness of breath, dyspnea with exertion, orthopnea, wheezing, stridor, hemoptysis GASTROINTESTINAL: abd pain Absent: abdominal distension, nausea, vomiting, diarrhea, constipation, melena, hematochezia GENITOURINARY: Absent: dysuria, frequency, urgency, hesitancy, hematuria, flank pain, genital pain MUSCULOSKELETAL: Absent: myalgia, arthralgia, joint swelling, back pain, neck pain SKIN: Absent: rash, itching, pallor HEMATOLOGIC/IMMUNOLOGIC: Absent: easy bleeding, easy bruising, lymphadenopathy, frequent infections PHYSICAL EXAMINATION Vital Signs - 24 hr 11/17/18 11/17/18 11/17/18 12:43 21:32 23:15 Temperature 98.2 F 98.1 F Pulse Rate 100 H 95 H Pulse Rate [ 95 H Apical] Respiratory 20 18 18 Rate Blood Pressure 117/78 124/69 Blood Pressure 115/67 [Right Arm] O2 Sat by Pulse 94 L 95 95 Oximetry (%) 11/18/18 11/18/18 11/18/18 01:33 05:50 09:00 Temperature 98.8 F 98.1 F Pulse Rate 95 H 98 H Pulse Rate [ Apical] Respiratory 18 18 18 Rate Blood Pressure 122/79 111/65 Blood Pressure [Right Arm] O2 Sat by Pulse 97 Oximetry (%) 11/18/18 09:13 Temperature 97.9 F Pulse Rate 93 H Pulse Rate [ Apical] Respiratory 18 Rate Blood Pressure 117/72 Blood Pressure [Right Arm] O2 Sat by Pulse Oximetry (%) GENERAL: Awake, alert, and fully oriented, in no acute distress. HEAD: Normal with no signs of trauma. Mild temporal wasting EYES: Pextraocular movements intact, sclera anicteric, conjunctiva clear. No jaundice EARS, NOSE, THROAT: Moist mucous membranes. NECK: supple without lymphadenopathy, JVD, or masses. LUNGS: Breath sounds equal, mild wheezes bilaterally. No accessory muscle use. HEART: Regular rate and rhythm, normal S1 and S2 without murmur, rub or gallop. ABDOMEN: soft, tenderness to palpation in all quadrants MUSCULOSKELETAL: Normal range of motion at all joints. No bony deformities or tenderness. LOWER EXTREMITIES: 2+ pulses, no calf tenderness. b/l LE edema NEUROLOGICAL: Normal speech. Laboratory Results - last 24 hr 11/17/18 11/17/18 11/17/18 15:24 15:24 17:20 WBC 8.9 RBC 4.77 Hgb 12.7 Hct 39.6 MCV 83.0 MCH 26.6 MCHC 32.0 RDW 15.5 Plt Count 281 MPV 8.5 Absolute Neuts (auto) 5.7 Neutrophils % 64.4 Lymphocytes % 21.5 D Monocytes % 12.3 H Eosinophils % 1.1 Basophils % 0.7 Nucleated RBC % 0 Sodium Cancelled 133 L Potassium Cancelled 5.8 H Chloride Cancelled 93 L Carbon Dioxide Cancelled 33 H Anion Gap Cancelled 7 L BUN Cancelled 7.9 Creatinine Cancelled 0.7 Est GFR (CKD-EPI)AfAm Cancelled 124.00 Est GFR (CKD-EPI)NonAf Cancelled 106.99 POC Glucometer Random Glucose Cancelled 87 Calcium Cancelled 9.1 Total Bilirubin Cancelled 0.7 AST Cancelled 102 H ALT Cancelled 68 H Alkaline Phosphatase Cancelled 674 H Total Protein Cancelled 8.0 Albumin Cancelled 3.4 Lipase Cancelled 114 Urine Osmolality Ur Random Sodium Stool Occult Blood 11/17/18 11/18/18 11/18/18 19:55 00:06 01:20 WBC RBC Hgb Hct MCV MCH MCHC RDW Plt Count MPV Absolute Neuts (auto) Neutrophils % Lymphocytes % Monocytes % Eosinophils % Basophils % Nucleated RBC % Sodium 131 L Potassium 3.9 Chloride 95 L Carbon Dioxide 32 Anion Gap 4 L BUN 6.3 L Creatinine 0.7 Est GFR (CKD-EPI)AfAm 124.00 Est GFR (CKD-EPI)NonAf 106.99 POC Glucometer 85 Random Glucose 58 L Calcium 8.4 L Total Bilirubin AST ALT Alkaline Phosphatase Total Protein Albumin Lipase Urine Osmolality 636 Ur Random Sodium Stool Occult Blood 11/18/18 11/18/18 11/18/18 01:20 04:49 06:59 WBC RBC Hgb Hct MCV MCH MCHC RDW Plt Count MPV Absolute Neuts (auto) Neutrophils % Lymphocytes % Monocytes % Eosinophils % Basophils % Nucleated RBC % Sodium Potassium Chloride Carbon Dioxide Anion Gap BUN Creatinine Est GFR (CKD-EPI)AfAm Est GFR (CKD-EPI)NonAf POC Glucometer 114 99 Random Glucose Calcium Total Bilirubin AST ALT Alkaline Phosphatase Total Protein Albumin Lipase Urine Osmolality Ur Random Sodium 37 L Stool Occult Blood 11/18/18 11/18/18 11/18/18 07:56 08:55 08:55 WBC 7.8 RBC 4.59 Hgb 12.3 Hct 38.2 MCV 83.2 MCH 26.7 MCHC 32.1 RDW 15.3 Plt Count 237 MPV 8.2 Absolute Neuts (auto) 5.7 Neutrophils % 73.1 Lymphocytes % 15.8 D Monocytes % 9.9 Eosinophils % 0.6 Basophils % 0.6 Nucleated RBC % 0 Sodium 132 L Potassium 4.3 Chloride 96 L Carbon Dioxide 30 Anion Gap 5 L BUN 6.4 L Creatinine 0.6 Est GFR (CKD-EPI)AfAm 132.11 Est GFR (CKD-EPI)NonAf 113.99 POC Glucometer Random Glucose 93 Calcium 8.7 Total Bilirubin 0.8 AST 101 H ALT 65 H Alkaline Phosphatase 618 H Total Protein 7.0 Albumin 3.1 L Lipase Urine Osmolality Ur Random Sodium Stool Occult Blood Negative Active Medications Generic Name Dose Route Start Last Admin Trade Name Freq PRN Reason Stop Dose Admin Atorvastatin Calcium 80 mg 11/18/18 22:00 Lipitor - PO HS ALTA Docusate Sodium 100 mg 11/17/18 23:45 Colace - PO BID PRN CONSTIPATION Enoxaparin Sodium 100 mg/ 135 mg 11/18/18 10:00 Enoxaparin Sodium 35 mg SQ DAILY ALTA Folic Acid 1 mg 11/18/18 10:00 Folic Acid - PO DAILY [facility] Sodium Chloride 1,000 mls @ 50 mls/hr 11/17/18 23:30 11/18/18 00:17 Normal Saline - IV 11/18/18 23:19 Not Given ASDIR ALTA Melatonin 10 mg 11/18/18 02:15 11/18/18 02:15 Melatonin PO 10 mg HS ALTA Administration Methadone HCl 100 mg 11/18/18 06:00 Dolophine - PO DAILY@0600 ALTA Morphine Sulfate 2 mg 11/18/18 03:22 11/18/18 08:50 Morphine Sulfate IV 2 mg Q6H PRN Administration PAIN LEVEL 4 - 6 Polyethylene Glycol 17 gm 11/18/18 02:30 11/18/18 02:26 Miralax (For Daily Use) - PO 17 gm BID [facility]TA Administration Thiamine HCl 100 mg 11/18/18 10:00 Vitamin B1 - PO DAILY [facility] ASSESSMENT/PLAN: #Metastatic Pancreatic Ca w/ Liver Mets -Pain control is currently the main issue. -FU pain management reccs -Will discuss with patient treatment options to further coordinate oncologic care Dispo: We will continue to follow the patient. Thank you for this consultative opportunity. Visit type - Emergency Visit Emergency Visit: Yes ED Registration Date: 11/17/18 Care time: The patient presented to the Emergency Department on the above date and was hospitalized for further evaluation of their emergent condition. - New Patient This patient is new to me today: Yes Date on this admission: 11/25/18 - Critical Care Critical Care patient: No ATTENDING PHYSICIAN STATEMENT I saw and evaluated the patient. I reviewed the resident's note and discussed the case with the resident. I agree with the resident's findings and plan as documented. SUBJECTIVE: OBJECTIVE: ASSESSMENT AND PLAN:
--- NOTE | 2018-11-18 12:24 | PN ---
Teaching Attending Note Name of Resident: Amberly Hardin ATTENDING PHYSICIAN STATEMENT I saw and evaluated the patient. I reviewed the resident's note and discussed the case with the resident. I agree with the resident's findings and plan as documented. SUBJECTIVE:continues to have diffuse abdominal pain. some relief with morphine but pain quickly returns. states he was not started on any treatment from oncology because they wanted to repeat the liver bioosy and discussion on doing a "nerve block". states pain has been progressively worsening over the past month. poor appetite due to dysgucia. denies CP, SOB, fever, chills, N/V/C/D OBJECTIVE: Last Vital Signs Temp Pulse Resp BP Pulse Ox 97.9 F 93 H 18 117/72 97 11/18/18 09:13 11/18/18 09:13 11/18/18 09:13 11/18/18 09:13 11/18/18 09:00 General NAD, bitemporal wasting CV s1 S2 RRR no murmur/rub/gallop Lungs decreased bases no wheezing Abdomen soft diffusely tender to light touch. +fluid wave. +BS Extremities B/L 1+ pitting edema ASSESSMENT AND PLAN: 53yo M with PMH COPD, and continuous polysubstance abuse and DVT/PE on full dose lovenox, recently diagnosed stage IV pancreatic cancer iwth diffuse mets that he has not started treatment for yet presented with progresively worsening abdominal pain 1. abdominal pain- could be due to tumor progression or ascites which would likely be malignant. will obtain MRCP to further evaluate at this time to see if there is biliary blockage. pt is willing to go for MRCP if pre-medicated with valium. will f/u study and discuss with IR about doing both therpeutic and daignositic paracentesis. GI and Oncology consulted. will need to d/w oncology treatment options for malignancy as pt wants to continue care here at this time. will adjust morphine to Q4H and adjust as needed. consider [employer] if unable to control pain 2. Hyponatremia- due to volume overload. will monitor 3. malnutrition- as evident by body habitus and reports of poor po intake. nutritional eval. agreeable to ensures 4. Transaminitis- due to liver mets and tumor burden. monitor. 5. Hyperkalemia- treated in the ER. resolved 6. 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 will need lifelong treatment. 7. Remote polysubstance abuse-on methadone. confirm dose. no signs of withdrawal 8. Palliative care consult. poor overall prognosis.
[2018-11-18] MEDS: MORPHINE SULFATE 2 MG/ML VIAL IV PRN ×2 (12:40→16:59)
[2018-11-18] MEDS ORDERED: diazePAM 5 MG TABLET PO PRN (13:00)
[2018-11-18] MEDS ORDERED: PT OWN MED DRAWER 7, Y5N ONE (13:41)
[2018-11-18] MEDS ORDERED: METHADONE HCL 10 MG TABLET PO ONE (16:37)
--- NOTE | 2018-11-18 16:59 | PN ---
Physical Exam: SUBJECTIVE: Patient seen and examined at bedside. pt stated he had alot of abdominal pain. the pain is worse when he sits up and has been progressively worsening this past month. pt states he does not have an appetite. OBJECTIVE: Vital Signs Period Temp Pulse Resp BP Sys/[place] Pulse Ox Last 24 Hr 97.9 F-98.8 F 93-98 18-18 111-124/65-79 95-97 GENERAL: The patient is awake, alert, and fully oriented, in no acute distress.pt is cachectic LUNGS: Breath sounds equal, clear to auscultation bilaterally, no wheezes, no crackles, no accessory muscle use. HEART: Regular rate and rhythm, S1, S2 without murmur, rub or gallop. ABDOMEN: Soft, tender to palpation, nondistended, normoactive bowel sounds, + guarding EXTREMITIES: 2+ pulses, warm, well-perfused, B/L LE 2+ pitting edema. PSYCH: Normal mood, normal affect. SKIN: Warm, dry, normal turgor, no rashes or lesions noted Laboratory Last Values WBC 7.8 K/mm3 (4.0-10.0) 11/18/18 08:55 RBC 4.59 M/mm3 (4.00-5.60) 11/18/18 08:55 Hgb 12.3 GM/dL (11.7-16.9) 11/18/18 08:55 Hct 38.2 % (35.4-49) 11/18/18 08:55 MCV 83.2 fl (80-96) 11/18/18 08:55 MCH 26.7 pg (25.7-33.7) 11/18/18 08:55 MCHC 32.1 g/dl (32.0-35.9) 11/18/18 08:55 RDW 15.3 % (11.9-15.9) 11/18/18 08:55 Plt Count 237 K/MM3 (134-434) 11/18/18 08:55 MPV 8.2 fl (7.5-11.1) 11/18/18 08:55 Absolute Neuts (auto) 5.7 K/mm3 (1.5-8.0) 11/18/18 08:55 Neutrophils % 73.1 % (42.8-82.8) 11/18/18 08:55 Lymphocytes % 15.8 % (8-40) D 11/18/18 08:55 Monocytes % 9.9 % (3.8-10.2) 11/18/18 08:55 Eosinophils % 0.6 % (0-4.5) 11/18/18 08:55 Basophils % 0.6 % (0-2.0) 11/18/18 08:55 Nucleated RBC % 0 % (0-0) 11/18/18 08:55 Sodium 132 mmol/L (136-145) L 11/18/18 08:55 Potassium 4.3 mmol/L (3.5-5.1) 11/18/18 08:55 Chloride 96 mmol/L (98-107) L 11/18/18 08:55 Carbon Dioxide 30 mmol/L (21-32) 11/18/18 08:55 Anion Gap 5 MMOL/L (8-16) L 11/18/18 08:55 BUN 6.4 mg/dL (7-18) L 11/18/18 08:55 Creatinine 0.6 mg/dL (0.55-1.3) 11/18/18 08:55 Est GFR (CKD-EPI)AfAm 132.11 11/18/18 08:55 Est GFR (CKD-EPI)NonAf 113.99 11/18/18 08:55 POC Glucometer 117 UNITS (80-120) 11/18/18 11:57 Random Glucose 93 mg/dL (74-106) 11/18/18 08:55 Serum Osmolality 274 mosm/kg (278-305) L 11/18/18 08:55 Calcium 8.7 mg/dL (8.5-10.1) 11/18/18 08:55 Total Bilirubin 0.8 mg/dL (0.2-1) 11/18/18 08:55 AST 101 U/L (15-37) H 11/18/18 08:55 ALT 65 U/L (13-61) H 11/18/18 08:55 Alkaline Phosphatase 618 U/L (45-117) H 11/18/18 08:55 Total Protein 7.0 g/dl (6.4-8.2) 11/18/18 08:55 Albumin 3.1 g/dl (3.4-5.0) L 11/18/18 08:55 Lipase 114 U/L (73-393) 11/17/18 17:20 Urine Osmolality 636 mosm/kg (300-900) 11/18/18 01:20 Ur Random Sodium 37 MMOL/L (40-220) L 11/18/18 01:20 Stool Occult Blood Negative (NEGATIVE) 11/18/18 07:56 Active Medications Atorvastatin Calcium (Lipitor -) 80 mg PO HS [facility] Diazepam (Valium -) 5 mg PO ONCE PRN PRN Reason: AGITATION Stop: 11/19/18 20:00 Docusate Sodium (Colace -) 100 mg PO BID PRN PRN Reason: CONSTIPATION Enoxaparin Sodium 100 mg/ (Enoxaparin Sodium 35 mg) 135 mg SQ DAILY [facility] Folic Acid (Folic Acid -) 1 mg PO DAILY [facility] Last Admin: 11/18/18 10:47 Dose: 1 mg Sodium Chloride (Normal Saline -) 1,000 mls @ 50 mls/hr IV ASDIR [facility] Stop: 11/18/18 23:19 Last Admin: 11/18/18 00:17 Dose: Not Given Melatonin (Melatonin) 10 mg PO HS [facility] Last Admin: 11/18/18 02:15 Dose: 10 mg Methadone HCl 80 mg/ Methadone (HCl 10 mg) 90 mg PO DAILY@0600 [facility] Morphine Sulfate (Morphine Sulfate) 2 mg IV Q4H PRN PRN Reason: PAIN LEVEL 4 - 6 Last Admin: 11/18/18 12:40 Dose: 2 mg Polyethylene Glycol (Miralax (For Daily Use) -) 17 gm PO BID [facility] Last Admin: 11/18/18 10:46 Dose: 17 gm Thiamine HCl (Vitamin B1 -) 100 mg PO DAILY [facility] Last Admin: 11/18/18 10:47 Dose: 100 mg ASSESSMENT/PLAN: 53 yo M PMH of chronic tobacco use, chronic EtOH use, HCV s/p interferon tx, vertigo,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 acknowledges nausea. Abdominal pain 2/2 inc. tumor burden vs malignant ascites -pt ammenable to MRCP w/ valium to r/o biliary block -Dr. Xiong/ GI recs appreciated -Oncology recs appreciated as pt wishes to continue care here -morphine 2 mg q4 prn for pain -palliative care consult Hyponatremia -2/2 overload -rpt bmp Malnutrition - poor po intake, pt requested vanilla ensure Transaminitis- 2/2 liver mets and tumor burden. -continue to monitor DVT/PE- on full dose lovenox Visit type - Emergency Visit Emergency Visit: No - New Patient This patient is new to me today: Yes Date on this admission: 11/18/18 - Critical Care Critical Care patient: No - Discharge Referral Referred to [facility] Med P.C.: No ATTENDING PHYSICIAN STATEMENT I saw and evaluated the patient. I reviewed the resident's note and discussed the case with the resident. I agree with the resident's findings and plan as documented. SUBJECTIVE: OBJECTIVE: ASSESSMENT AND PLAN:
--- NOTE | 2018-11-18 17:04 | EKG ---
Test Reason : Blood Pressure : / mmHG Vent. Rate : 093 BPM Atrial Rate : 093 BPM P-R Int : 152 ms QRS Dur : 090 ms QT Int : 378 ms P-R-T Axes : 059 036 049 degrees QTc Int : 469 ms NORMAL SINUS RHYTHM NORMAL ECG WHEN COMPARED WITH ECG OF 28-OCT-2018 23:04, NO SIGNIFICANT CHANGE WAS FOUND Confirmed by ZI LARA MD ([id number]) on 11/18/2018 5:03:48 PM Referred By: Confirmed By:ZI LARA MD
[2018-11-18] MEDS ORDERED: MORPHINE SULFATE 2 MG/ML VIAL IVPUSH ONE (18:25)
[2018-11-18] MEDS: MORPHINE SULFATE 2 MG/ML VIAL IVPUSH PRN (20:48)
--- NOTE | 2018-11-18 21:43 | PN ---
Progress Note (short form) - Note Progress Note: Patient seen and examined 53yo male h/o COPD, polysubstance abuse (etoh, heroin on methadone) presenting with upper abdominal pain Recent CT revealing liver lesions and possible peritoneal carcinomatosis concerning for metastatic disease of unknown primary s/p liver biopsy 10/25/18. CT imaging revealing pancreatic tail mass concerning for malignancy. Elevated CEA and markedly elevated CA19-9. Biopsy of liver mass and cytology from liver mass consistent with poorly differentiated carcinoma on 10/25/18, immunostains nonspecific but based on imaging correlation pancreaic adenocarcinoma preferred Patient was seen at [facility] in the [place] --since they wanted o repeat bx patient did not want to pursue further w/u there At this time pain control is he main issue will requrst pain managemen consult ? candidated for ? celiac plexs block will discuss withpain management will need to coordinate oncologic care
[2018-11-18] MEDS ORDERED: ATORVASTATIN CA 80 MG TABLET (FP) PO SCH (22:00)
[2018-11-19] MEDS: MORPHINE SULFATE 2 MG/ML VIAL IVPUSH PRN (00:12)
[2018-11-19] MEDS ORDERED: PROCHLORPERAZINE INJECTION 10 MG/2 ML VIAL IVPB ONE (03:46)
[2018-11-19] MEDS: morphine SULFATE 4 MG/ML VIAL IVPUSH PRN ×2 (03:54→10:02)
[2018-11-19] MEDS ORDERED: METHADONE HCL 10 MG TABLET ONE (05:49)
[2018-11-19] MEDS ORDERED: METHADONE HCL 40 MG DISPERSABLE TABLET ONE (05:50)
[2018-11-19] MEDS: METHADONE 80 MG, METHADONE 10 MG PO SCH (05:55)
[2018-11-19 07:04] LABS: URINE CREATININE 72.1 mg/dL (20-320); URINE CREATININE VAL FOR 24 HR 811.1 MG/24HR (600-1800)
[2018-11-19] MEDS ORDERED: GABAPENTIN 400 MG CAPSULE (FP) PO ONE (07:24)
[2018-11-19 07:25] LABS: HEMATOCRIT 35.5 % (35.4-49); HEMOGLOBIN 11.6 GM/dL (11.7-16.9); MCH 26.7 pg (25.7-33.7); MCHC 32.6 g/dl (32.0-35.9); MEAN CELL VOLUME 81.8 fl (80-96); MEAN PLT VOLUME 8.1 fl (7.5-11.1); PLATELET COUNT 242 K/MM3 (134-434); RBC 4.35 M/mm3 (4.00-5.60); RDW 15.5 % (11.9-15.9); WHITE BLOOD COUNT 8.7 K/mm3 (4.0-10.0)
[2018-11-19 07:55] LABS: CALCIUM 8.2 mg/dL (8.5-10.1); CREATININE 0.5 mg/dL (0.55-1.3); POTASSIUM 4.2 mmol/L (3.5-5.1)
[2018-11-19] MEDS ORDERED: GABAPENTIN 400 MG, GABAPENTIN 100 MG PO ONE (08:00)
[2018-11-19 08:08] LABS: INR 1.54 (0.83-1.09); PROTHROMBIN TIME (PATIENT) 18.3 SEC (9.7-13.0)
[2018-11-19] MEDS ORDERED: METHADONE HCL 10 MG TABLET (FOR DETOX USE ONLY) PO ONE (09:44)
[2018-11-19] MEDS ORDERED: ONDANSETRON 4 MG/2 ML VIAL IVPUSH ONE (09:44)
[2018-11-19] MEDS ORDERED: GABAPENTIN 100 MG CAPSULE (FP) ONE (09:57)
[2018-11-19] MEDS ORDERED: GABAPENTIN 400 MG CAPSULE (FP) ONE (09:57)
[2018-11-19] MEDS ORDERED: PT OWN MED DRAWER 7, Y5N ONE (09:58)
[2018-11-19] MEDS: FOLIC ACID 1 MG TABLET (FP) PO SCH (10:02)
[2018-11-19] MEDS: ENOXAPARIN SQ SCH (10:03)
[2018-11-19] MEDS: POLYETHYLENE GLYCOL 3350 119 GM BTL PO SCH ×2 (10:05→22:32)
[2018-11-19] MEDS: THIAMINE HCL 100 MG TABLET (FP) PO SCH (10:06)
[2018-11-19] MEDS ORDERED: METHADONE HCL 10 MG TABLET PO ONE (10:15)
--- NOTE | 2018-11-19 11:11 | PN ---
Teaching Attending Note Name of Resident: Amberly Hardin ATTENDING PHYSICIAN STATEMENT I saw and evaluated the patient. I reviewed the resident's note and discussed the case with the resident. I agree with the resident's findings and plan as documented. SUBJECTIVE:vomited methadone up this morning. states pain is not well controlled. unable to sleep or eat because of the pain. denies CP, SOB, fever, chills. 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 abdominal pain- likely due to tumor progression. CBD WNL. small ascites on u/ s. would benefit from celiac plexus nerve block. will call IR. will give reduce dose of methadone 40mg as he vomited half of the methadone up. will start dilaudid for pain control and titrate to optimize pain. exercise specialist eval as needs to optimize pain control. GI and oncology on board. 2. Hyponatremia- due to volume overload. will monitor 3. malnutrition- as evident by body habitus and reports of poor po intake. nutritional eval. ensures 4. Transaminitis- due to liver mets and tumor burden. monitor. 5. Hyperkalemia- treated in the ER. resolved 6. 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 will need lifelong treatment. 7. Remote polysubstance abuse-on methadone. confirm dose. no signs of withdrawal 8. Palliative care consult. poor overall prognosis.
--- NOTE | 2018-11-19 12:07 | PN.GI ---
GI Progress Note Subjective: Complains of upper abdominal pain Abd US reveals multiple liver mets, normal caliber CBD States that he was treated with pegasys/ribavirin in the past for his hep C and was undetectable a year after treatment - Objective Vital Signs: Vital Signs Temperature 98.2 F 11/19/18 10:00 Pulse Rate 98 H 11/19/18 10:00 Respiratory Rate 18 11/19/18 10:00 Blood Pressure 117/77 11/19/18 10:00 O2 Sat by Pulse Oximetry (%) 99 11/18/18 21:00 Constitutional: Calm Eyes: No: Sclera Icterus Cardiovascular: Yes: Tachycardia Respiratory: Yes: CTA Bilaterally Gastrointestinal Inspection: No: Ascites, Scars ...Auscultate: Yes: Normoactive Bowel Sounds ...Palpate: Yes: Tenderness (upper abdomen) ...Percussion: No: Tympanitic Edema: Yes Labs: CBC, BMP 11/19/18 06:50 11/19/18 06:50 INR, PTT INR 1.54 (0.83-1.09) H 11/19/18 06:50 Problem List - Problems (1) Abnormal liver function tests Assessment/Plan: Suspect secondary to tumor burden in the liver with component of underlying chronic liver disease. CBD normal in caliber. This is not suggestive of extrahepatic biliary obstruction Pain management: Consider pain management evaluation / IR evaluation to see if Celiac pelxus block is an option Being evaluated by Oncology Other recommendation as in initial consultation Recall as needed Code(s): R94.5 - ABNORMAL RESULTS OF LIVER FUNCTION STUDIES
--- NOTE | 2018-11-19 12:15 | CONSULT ---
Consult Consult Specialty:: pain management Referred by:: Dr Camarillo - History of Present Illness Chief Complaint: intractable abdominal pain due to pancreatic terminal Cancer - Past Medical History Pulmonary: Yes: Pulmonary Embolus Psych: Yes: Addictions (heroin, cocaine, etoh) - Alcohol/Substance Use Hx Alcohol Use: Yes History of Substance Use: reports: Cocaine, Heroin - Smoking History Smoking history: Former smoker Have you smoked in the past 12 months: No Aproximately how many cigarettes per day: 20 - Social History Usual Living Arrangement: Alone ADL: Independent Occupation: Unemployed History of Recent Travel: No Home Medications - Allergies Allergies/Adverse Reactions: Allergies Allergy/AdvReac Type Severity Reaction Status Date / Time No Known Allergies Allergy Verified 11/17/18 12:40 - Home Medications Home Medications: Ambulatory Orders Atorvastatin Ca [Lipitor] 80 mg PO HS 10/21/18 Folic Acid - 1 mg PO DAILY #30 tablet 10/27/18 Mag Hydrox/Al Hydrox/Simeth [MAALOX *SUSPENSION* -] 30 ml PO Q6HPO PRN ml 10/27 Methadone [Dolophine -] 80 mg PO DAILY@0600 tablet MDD 80 10/27/18 Thiamine HCl [Vitamin B1 -] 100 mg PO DAILY tablet 10/27/18 Enoxaparin [Lovenox -] 135 mg SQ DAILY 14 Days disp.syrin 10/30/18 Lactulose 20 gm PO TID 14 Days solution 10/31/18 Pantoprazole Sodium [Protonix -] 20 mg PO DAILY #14 tablet.ec 10/31/18 Neurontin 500 mg HS 11/19/18 Family Disease History - Family Disease History Family Disease History: CA: Father (LIVER) Physical Exam Vital Signs: Vital Signs Temperature 98.2 F 11/19/18 10:00 Pulse Rate 98 H 11/19/18 10:00 Respiratory Rate 18 11/19/18 10:00 Blood Pressure 117/77 11/19/18 10:00 O2 Sat by Pulse Oximetry (%) 99 11/18/18 21:00 Labs: CBC, BMP 11/19/18 06:50 11/19/18 06:50 Assessment/Plan As patient is not under control of his abdominal pain with morphine I.V 3mg Q.4hr( VAS10). Presently, he is on Dilaudid 1mg I.V q.3hr prn . If there is no improvement.We will recommendbto switch patient to Fentanyl patch 75mcg q.72 hr and add dilaudid for breakthrough pain. If any question, they can contact me at [phone].Thank you
[2018-11-19] MEDS ORDERED: FENTANYL PATCH WASTE TD PRN (12:16)
[2018-11-19] MEDS: fentaNYL 75mcg/hr PATCH.TD72 TD SCH (12:52)
--- NOTE | 2018-11-19 13:44 | PN ---
Physical Exam: SUBJECTIVE: Patient seen and examined at bedside. Pt is in a lot of pain. pt states he feels nauseous and vomited after methadone. OBJECTIVE: Vital Signs Period Temp Pulse Resp BP Sys/Chacon Pulse Ox Last 24 Hr 98.1 F-98.6 F 98-106 18-18 111-128/70-77 99 GENERAL: The patient is awake, alert, and fully oriented, pt is cachectic HEAD: Normal with no signs of trauma. LUNGS: Breath sounds equal, clear to auscultation bilaterally, no wheezes, no crackles, no accessory muscle use. HEART: Regular rate and rhythm, S1, S2 without murmur, rub or gallop. ABDOMEN: Soft, extremely tender to light touch, normoactive bowel sounds EXTREMITIES: 2+ pulses, warm, well-perfused, edema B/L LE. PSYCH: Normal mood, normal affect. SKIN: Warm, dry, normal turgor, no rashes or lesions noted Laboratory Last Values WBC 8.7 K/mm3 (4.0-10.0) 11/19/18 06:50 RBC 4.35 M/mm3 (4.00-5.60) 11/19/18 06:50 Hgb 11.6 GM/dL (11.7-16.9) L 11/19/18 06:50 Hct 35.5 % (35.4-49) 11/19/18 06:50 MCV 81.8 fl (80-96) 11/19/18 06:50 MCH 26.7 pg (25.7-33.7) 11/19/18 06:50 MCHC 32.6 g/dl (32.0-35.9) 11/19/18 06:50 RDW 15.5 % (11.9-15.9) 11/19/18 06:50 Plt Count 242 K/MM3 (134-434) 11/19/18 06:50 MPV 8.1 fl (7.5-11.1) 11/19/18 06:50 Absolute Neuts (auto) 5.7 K/mm3 (1.5-8.0) 11/18/18 08:55 Neutrophils % 73.1 % (42.8-82.8) 11/18/18 08:55 Lymphocytes % 15.8 % (8-40) D 11/18/18 08:55 Monocytes % 9.9 % (3.8-10.2) 11/18/18 08:55 Eosinophils % 0.6 % (0-4.5) 11/18/18 08:55 Basophils % 0.6 % (0-2.0) 11/18/18 08:55 Nucleated RBC % 0 % (0-0) 11/18/18 08:55 PT with INR 18.30 SEC (9.7-13.0) H 11/19/18 06:50 INR 1.54 (0.83-1.09) H 11/19/18 06:50 Sodium 132 mmol/L (136-145) L 11/19/18 06:50 Potassium 4.2 mmol/L (3.5-5.1) 11/19/18 06:50 Chloride 96 mmol/L (98-107) L 11/19/18 06:50 Carbon Dioxide 27 mmol/L (21-32) 11/19/18 06:50 Anion Gap 8 MMOL/L (8-16) 11/19/18 06:50 BUN 7.0 mg/dL (7-18) 11/19/18 06:50 Creatinine 0.5 mg/dL (0.55-1.3) L 11/19/18 06:50 Est GFR (CKD-EPI)AfAm 142.39 11/19/18 06:50 Est GFR (CKD-EPI)NonAf 122.86 11/19/18 06:50 POC Glucometer 114 UNITS (80-120) 11/19/18 05:54 Random Glucose 113 mg/dL (74-106) H 11/19/18 06:50 Serum Osmolality 274 mosm/kg (278-305) L 11/18/18 08:55 Calcium 8.2 mg/dL (8.5-10.1) L 11/19/18 06:50 Total Bilirubin 0.8 mg/dL (0.2-1) 11/18/18 08:55 AST 101 U/L (15-37) H 11/18/18 08:55 ALT 65 U/L (13-61) H 11/18/18 08:55 Alkaline Phosphatase 618 U/L (45-117) H 11/18/18 08:55 Total Protein 7.0 g/dl (6.4-8.2) 11/18/18 08:55 Albumin 3.1 g/dl (3.4-5.0) L 11/18/18 08:55 Lipase 114 U/L (73-393) 11/17/18 17:20 Urine Osmolality 636 mosm/kg (300-900) 11/18/18 01:20 Ur Random Creatinine 135.0 mg/dL (30-150) 11/18/18 01:20 Ur Random Sodium 37 MMOL/L (40-220) L 11/18/18 01:20 Urine Collection Time 24 HOURS 11/19/18 01:30 Urine Total Volume 1125 mL 11/19/18 01:30 Urine Creatinine 72.1 mg/dL (20-320) 11/19/18 01:30 Ur Creatinine 24 Hour 811.1 MG/24HR (600-1800) 11/19/18 01:30 Stool Occult Blood Negative (NEGATIVE) 11/18/18 07:56 Current Medications Docusate Sodium (Colace -) 100 mg PO BID PRN PRN Reason: CONSTIPATION Enoxaparin Sodium 100 mg/ (Enoxaparin Sodium 35 mg) 135 mg SQ DAILY [facility] Last Admin: 11/19/18 10:03 Dose: 135 mg Fentanyl (Duragesic 75mcg Patch -) 1 patch TD Q72H [facility] Last Admin: 11/19/18 12:52 Dose: 1 patch Folic Acid (Folic Acid -) 1 mg PO DAILY [facility] Last Admin: 11/19/18 10:02 Dose: 1 mg Hydromorphone HCl (Dilaudid Vial -) 1 mg IVPUSH Q4H PRN PRN Reason: PAIN LEVEL 6-10 Melatonin (Melatonin) 10 mg PO HS [facility] Last Admin: 11/18/18 22:14 Dose: 10 mg Miscellaneous (Duragesic Patch Waste) 1 each TD PRN PRN PRN Reason: PAIN Polyethylene Glycol (Miralax (For Daily Use) -) 17 gm PO BID [facility] Last Admin: 11/19/18 10:05 Dose: Not Given Thiamine HCl (Vitamin B1 -) 100 mg PO DAILY [facility] Last Admin: 11/19/18 10:06 Dose: 100 mg ASSESSMENT/PLAN: 53 yo M PMH of chronic tobacco use, chronic EtOH use, HCV s/p interferon tx, vertigo,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 acknowledges nausea. Abdominal pain 2/2 inc. tumor burden vs malignant ascites -Abdominal U/S showed small ascites, CBD wnl -Dr. Xiong/ GI recs appreciated -Oncology recs appreciated as pt wishes to continue care here -D/ C morphine prn for pain, pt now has Dilauded 1 q4 for pain - pain mgmt recommends Fentanyl patch for pain -Zofran for nausea -IR will take pt for nerve block on thursday , pt should not receive AC on Wednesday 11/22 Hyponatremia -2/2 overload -continue monitoring bmp Malnutrition - poor po intake, pt requested vanilla ensure Transaminitis- 2/2 liver mets and tumor burden. -continue to monitor DVT/PE- on full dose lovenox Visit type - Emergency Visit Emergency Visit: No - New Patient This patient is new to me today: No - Critical Care Critical Care patient: No - Discharge Referral Referred to [facility] Med P.C[facility] No ATTENDING PHYSICIAN STATEMENT I saw and evaluated the patient. I reviewed the resident's note and discussed the case with the resident. I agree with the resident's findings and plan as documented. SUBJECTIVE: OBJECTIVE: ASSESSMENT AND PLAN:
--- NOTE | 2018-11-19 15:03 | FALL ---
Fall Exam - Event Witnessed fall: Yes Location of Fall: Patient Room Fall from: While ambulating - Pre-Fall Mental Status: Lethargic Current Medications: Current Medications Generic Name Dose Route Start Last Admin Trade Name Freq PRN Reason Stop Dose Admin Docusate Sodium 100 mg 11/17/18 23:45 Colace - PO BID PRN CONSTIPATION Enoxaparin Sodium 100 mg/ 135 mg 11/18/18 11:00 11/19/18 10:03 Enoxaparin Sodium 35 mg SQ 135 mg DAILY [facility] Administration Fentanyl 1 patch 11/19/18 12:30 11/19/18 12:52 Duragesic 75mcg Patch - TD 1 patch Q72H [facility] Administration Folic Acid 1 mg 11/18/18 10:00 11/19/18 10:02 Folic Acid - PO 1 mg DAILY [facility] Administration Hydromorphone HCl 1 mg 11/19/18 11:31 Dilaudid Vial - IVPUSH Q4H PRN PAIN LEVEL 6-10 Melatonin 10 mg 11/18/18 02:15 11/18/18 22:14 Melatonin PO 10 mg HS [facility] Administration Methadone HCl 80 mg/ Methadone 90 mg 11/19/18 06:00 11/19/18 05:55 HCl 10 mg PO 90 mg DAILY@0600 [facility] Administration Miscellaneous 1 each 11/19/18 12:16 Duragesic Patch Waste TD PRN PRN PAIN Polyethylene Glycol 17 gm 11/18/18 02:30 11/19/18 10:05 Miralax (For Daily Use) - PO Not Given BID [facility] Senna 1 tab 11/19/18 22:00 Senna - PO BID [facility] Thiamine HCl 100 mg 11/18/18 10:00 11/19/18 10:06 Vitamin B1 - PO 100 mg DAILY [facility] Administration - Post-Fall Patient Outcome: No Injury Exam Findings: General: Pt awake and oriented x3. pt lethargic, pt would lose focus and sway. HEENT:Head atraumatic, Pupils equal round and reactive to light. Neuro:Cranial Nerves 2-12 intact. Normal Speech. gait not observed. Extremeties: Muscle strength 5/5 B/L UE and LE. Echymosis and scrape of L knee Treatment: None Vital Signs: Vital Signs Temperature 98.2 F 11/19/18 10:00 Pulse Rate 116 H 11/19/18 14:50 Respiratory Rate 20 11/19/18 14:50 Blood Pressure 126/78 11/19/18 14:50 O2 Sat by Pulse Oximetry (%) 99 11/18/18 21:00 LOC Post-Fall: Awake, Oriented Identify factors for HIGH RISK for Head Injury: Pt on anticoagulant
--- NOTE | 2018-11-19 21:10 | PN ---
Progress Note (short form) - Note Progress Note: Patient seen and examined Had a fall today No head trauma AFVSS Cor: RSR, No murmurs, No gallops Lungs: Clear to P&A Abd: Soft, Normal bowel sounds, No organomegaly ext. --no c/ce Labs/MEds reviewed A/P 53yo male h/o COPD, polysubstance abuse (etoh, heroin on methadone) presenting with upper abdominal pain Recent CT revealing liver lesions and possible peritoneal carcinomatosis concerning for metastatic disease of unknown primary s/p liver biopsy 10/25/18. CT imaging revealing pancreatic tail mass concerning for malignancy. Elevated CEA and markedly elevated CA19-9. Biopsy of liver mass and cytology from liver mass consistent with poorly differentiated carcinoma on 10/25/18, immunostains nonspecific but based on imaging correlation pancreaic adenocarcinoma preferred Patient was seen at [facility] in the [place] --since they wanted o repeat bx patient did not want to pursue further w/u there At this time pain control is he main issue will requrst pain managemen consult ? candidated for ? celiac plexs block will discuss withpain management will need to coordinate out paient oncologic care ? por-a-cath placement
[2018-11-19] MEDS: MELATONIN 5 MG TABLETS PO SCH ×2 (22:31→23:21)
[2018-11-19] MEDS: SENNOSIDES 8.6MG TABLET (FP) PO SCH (22:31)
[2018-11-19] MEDS: HYDROmorphone HCl 2 MG/ML VIAL IVPUSH PRN (22:46)
[2018-11-19] MEDS ORDERED: ZOLPIDEM TARTRATE 5 MG TABLET PO STA (23:00)
[2018-11-20] MEDS: HYDROmorphone HCl 2 MG/ML VIAL IVPUSH PRN ×3 (03:13→14:47)
[2018-11-20] MEDS ORDERED: PT OWN MED DRAWER 7, Y5N ONE (03:42)
[2018-11-20] MEDS ORDERED: GABAPENTIN 100 MG CAPSULE (FP) PO ONE ×2 (04:56→21:09)
[2018-11-20] MEDS ORDERED: GABAPENTIN 100 MG CAPSULE (FP) ONE (05:02)
[2018-11-20] MEDS ORDERED: GABAPENTIN 400 MG CAPSULE (FP) ONE (05:03)
[2018-11-20] MEDS ORDERED: GABAPENTIN 400 MG, GABAPENTIN 100 MG PO ONE (05:15)
[2018-11-20] MEDS ORDERED: METHADONE HCL 10 MG TABLET ONE (05:43)
[2018-11-20] MEDS ORDERED: METHADONE HCL 40 MG DISPERSABLE TABLET ONE (05:43)
[2018-11-20] MEDS: METHADONE 80 MG, METHADONE 10 MG PO SCH (05:50)
--- NOTE | 2018-11-20 08:14 | EKG ---
Test Reason : Blood Pressure : / mmHG Vent. Rate : 102 BPM Atrial Rate : 102 BPM P-R Int : 150 ms QRS Dur : 100 ms QT Int : 356 ms P-R-T Axes : 053 045 056 degrees QTc Int : 463 ms SINUS TACHYCARDIA OTHERWISE NORMAL ECG WHEN COMPARED WITH ECG OF 17-NOV-2018 19:00, NO SIGNIFICANT CHANGE WAS FOUND Confirmed by AZIZA RUBI MD ([id number]) on 11/20/2018 8:14:33 AM Referred By: RODNEY EISENBERG DR Confirmed By:AZIZA RUBI MD
[2018-11-20 08:15] LABS: ALBUMIN 2.6 g/dl (3.4-5.0); BILIRUBIN,TOTAL 0.7 mg/dL (0.2-1); BLOOD UREA NITROGEN 6.5 mg/dL (7-18); CALCIUM 8.3 mg/dL (8.5-10.1); CREATININE 0.6 mg/dL (0.55-1.3); HEMATOCRIT 34.4 % (35.4-49); HEMOGLOBIN 11.3 GM/dL (11.7-16.9); MAGNESIUM 2.3 mg/dL (1.8-2.4); MCHC 32.9 g/dl (32.0-35.9); MEAN CELL VOLUME 81.9 fl (80-96); MEAN PLT VOLUME 8.2 fl (7.5-11.1); PHOSPHOROUS 3.8 mg/dL (2.5-4.9); POTASSIUM 3.9 mmol/L (3.5-5.1); RDW 15.4 % (11.9-15.9); TOT PROT 6.2 g/dl (6.4-8.2); WHITE BLOOD COUNT 7.9 K/mm3 (4.0-10.0)
[2018-11-20 09:10] LABS: PLATELET COUNT 245 K/MM3 (134-434)
--- NOTE | 2018-11-20 10:42 | PN ---
Progress Note (short form) - Note Progress Note: c/o diffuse abdominal pain. some initial relief from patch but now feeling more pain. denies CP, SOB, fever, chills, N/V/C/D. had BM yesterday mechanical fall yesterday. states he tripped on his socks. Current Medications Generic Name Dose Route Start Last Admin Trade Name Freq PRN Reason Stop Dose Admin Docusate Sodium 100 mg 11/17/18 23:45 Colace - PO BID PRN CONSTIPATION Enoxaparin Sodium 100 mg/ 135 mg 11/18/18 11:00 11/19/18 10:03 Enoxaparin Sodium 35 mg SQ 135 mg DAILY [facility] Administration Fentanyl 1 patch 11/19/18 12:30 11/19/18 12:52 Duragesic 75mcg Patch - TD 1 patch Q72H [facility] Administration Folic Acid 1 mg 11/18/18 10:00 11/19/18 10:02 Folic Acid - PO 1 mg DAILY [facility] Administration Hydromorphone HCl 1 mg 11/19/18 11:31 11/20/18 03:13 Dilaudid Vial - IVPUSH 1 mg Q4H PRN Administration PAIN LEVEL 6-10 Melatonin 10 mg 11/18/18 02:15 11/19/18 23:21 Melatonin PO 10 mg HS [facility] Administration Methadone HCl 80 mg/ Methadone 90 mg 11/19/18 06:00 11/20/18 05:50 HCl 10 mg PO 90 mg DAILY@0600 [facility] Administration Miscellaneous 1 each 11/19/18 12:16 Duragesic Patch Waste TD PRN PRN PAIN Polyethylene Glycol 17 gm 11/18/18 02:30 11/19/18 22:32 Miralax (For Daily Use) - PO Not Given BID [facility] Senna 1 tab 11/19/18 22:00 11/19/18 22:31 Senna - PO Not Given BID [facility] Thiamine HCl 100 mg 11/18/18 10:00 11/19/18 10:06 Vitamin B1 - PO 100 mg DAILY [facility] Administration Last Vital Signs Temp Pulse Resp BP Pulse Ox 98.9 F 99 H 20 114/72 97 11/20/18 06:00 11/20/18 06:00 11/20/18 06:00 11/20/18 06:00 11/19/18 21:00 General NAD, bitemporal wasting CV S1 S2 RRR no murmur/rub/vivar Lungs CTA B/L no wheezing/rales/rhonchi Abdomen soft diffuse tendenress worse in RUQ. +BS Extremities trace pitting edema CBCD WBC 7.9 K/mm3 (4.0-10.0) 11/20/18 07:07 RBC 4.20 M/mm3 (4.00-5.60) 11/20/18 07:07 Hgb 11.3 GM/dL (11.7-16.9) L 11/20/18 07:07 Hct 34.4 % (35.4-49) L 11/20/18 07:07 MCV 81.9 fl (80-96) 11/20/18 07:07 MCHC 32.9 g/dl (32.0-35.9) 11/20/18 07:07 RDW 15.4 % (11.9-15.9) 11/20/18 07:07 Plt Count 245 K/MM3 (134-434) 11/20/18 07:07 MPV 8.2 fl (7.5-11.1) 11/20/18 07:07 CMP Sodium 132 mmol/L (136-145) L 11/20/18 07:07 Potassium 3.9 mmol/L (3.5-5.1) 11/20/18 07:07 Chloride 96 mmol/L (98-107) L 11/20/18 07:07 Carbon Dioxide 30 mmol/L (21-32) 11/20/18 07:07 Anion Gap 5 MMOL/L (8-16) L 11/20/18 07:07 BUN 6.5 mg/dL (7-18) L 11/20/18 07:07 Creatinine 0.6 mg/dL (0.55-1.3) 11/20/18 07:07 Calcium 8.3 mg/dL (8.5-10.1) L 11/20/18 07:07 Total Bilirubin 0.7 mg/dL (0.2-1) 11/20/18 07:07 AST 93 U/L (15-37) H 11/20/18 07:07 ALT 59 U/L (13-61) 11/20/18 07:07 Alkaline Phosphatase 641 U/L (45-117) H 11/20/18 07:07 Total Protein 6.2 g/dl (6.4-8.2) L 11/20/18 07:07 Albumin 2.6 g/dl (3.4-5.0) L 11/20/18 07:07 ASSESSMENT AND PLAN: 53yo M with PMH COPD, and continuous polysubstance abuse and DVT/PE on full dose lovenox, recently diagnosed stage IV pancreatic cancer iwth diffuse mets that he has not started treatment for yet presented with progresively worsening abdominal pain 1. Intractable abdominal pain- likely due to tumor progression. plan for celiac nerve block on thursday by IR. seen by pain management. started on fentantyl patch. dilaudid for breakthrough pain. he recommends d/c methadone at this time. states does NOT need to be titrated and can be stopped abruptly. pt not comfortable with stopping. agrees to try to decrease methadone. will start for mg at this time. reassurance that patch will take time to work. hold lovenox thursday for procedure. Pain management, GI and oncology on board. 2. Mechanical fall- s/p tripping over his socks. no neurological deficits after event. Head ct negative for bleed. PT eval 3. Hyponatremia- due to volume overload. will monitor 4. malnutrition- as evident by body habitus and reports of poor po intake. nutritional eval. ensures 5. Transaminitis- due to liver mets and tumor burden. trending down. 6. Hyperkalemia- treated in the ER. resolved 7. 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 will need lifelong treatment. hold thursday for procedure 8. Remote polysubstance abuse-on methadone. confirm dose. no signs of withdrawal 9. Palliative care consult. poor overall prognosis. Visit type - Emergency Visit Emergency Visit: Yes ED Registration Date: 11/17/18 Care time: The patient presented to the Emergency Department on the above date and was hospitalized for further evaluation of their emergent condition. - New Patient This patient is new to me today: No - Critical Care Critical Care patient: No - Discharge Referral Referred to [facility] No
[2018-11-20] MEDS: FOLIC ACID 1 MG TABLET (FP) PO SCH (10:48)
[2018-11-20] MEDS: POLYETHYLENE GLYCOL 3350 119 GM BTL PO SCH ×3 (10:50→22:26)
[2018-11-20] MEDS: ENOXAPARIN SQ SCH (10:50)
[2018-11-20] MEDS: THIAMINE HCL 100 MG TABLET (FP) PO SCH (10:51)
[2018-11-20] MEDS: SENNOSIDES 8.6MG TABLET (FP) PO SCH ×2 (10:51→22:23)
[2018-11-20] MEDS: DOCUSATE SODIUM 100 MG CAPSULE (FP) PO PRN ×2 (10:51→22:24)
[2018-11-20 11:50] LABS: BILIRUBIN,DIRECT 0.5 mg/dL (0.0-0.2)
[2018-11-20] MEDS: morphine SULFATE 4 MG/ML VIAL IVPUSH PRN ×3 (17:39→23:50)
--- NOTE | 2018-11-20 18:38 | PN ---
Progress Note, Physician History of Present Illness: Continues to have abd pain without relief. Feels that morphine IV for breakthrough works better than dilaudi - Current Medication List Current Medications: Active Medications Docusate Sodium (Colace -) 100 mg PO BID PRN PRN Reason: CONSTIPATION Last Admin: 11/20/18 10:51 Dose: 100 mg Enoxaparin Sodium 100 mg/ (Enoxaparin Sodium 35 mg) 135 mg SQ DAILY [facility] Last Admin: 11/20/18 10:50 Dose: 135 mg Fentanyl (Duragesic 75mcg Patch -) 1 patch TD Q72H [facility] Last Admin: 11/19/18 12:52 Dose: 1 patch Folic Acid (Folic Acid -) 1 mg PO DAILY [facility] Last Admin: 11/20/18 10:48 Dose: 1 mg Melatonin (Melatonin) 10 mg PO HS [facility] Last Admin: 11/19/18 23:21 Dose: 10 mg Methadone HCl 80 mg/ Methadone (HCl 10 mg) 90 mg PO DAILY@0600 [facility] Last Admin: 11/20/18 05:50 Dose: 90 mg Miscellaneous (Duragesic Patch Waste) 1 each TD PRN PRN PRN Reason: PAIN Morphine Sulfate (Morphine Sulfate) 4 mg IVPUSH Q3H PRN PRN Reason: PAIN LEVEL 7 - 10 Last Admin: 11/20/18 17:39 Dose: 4 mg Polyethylene Glycol (Miralax (For Daily Use) -) 17 gm PO BID [facility] Last Admin: 11/20/18 10:56 Dose: Not Given Senna (Senna -) 1 tab PO BID [facility] Last Admin: 11/20/18 10:51 Dose: 1 tab Thiamine HCl (Vitamin B1 -) 100 mg PO DAILY [facility] Last Admin: 11/20/18 10:51 Dose: 100 mg - Objective Vital Signs: Vital Signs Temperature 98.9 F 11/20/18 13:25 Pulse Rate 88 11/20/18 13:25 Respiratory Rate 20 11/20/18 13:25 Blood Pressure 111/61 11/20/18 13:25 O2 Sat by Pulse Oximetry (%) 97 11/20/18 09:00 Constitutional: Yes: No Distress, Calm Eyes: Yes: Conjunctiva Clear Cardiovascular: No: Regular Rate and Rhythm Respiratory: Yes: Regular, CTA Bilaterally Gastrointestinal: Yes: Soft, Tenderness (diffuse) Edema: Yes Labs: CBC, BMP 11/20/18 07:07 11/20/18 07:07 INR, PTT INR 1.54 (0.83-1.09) H 11/19/18 06:50 Assessment/Plan 53M with COPD, polysubstance abuse (etoh, heroin on methadone) presented with abdominal pain. Recent CT showed liver lesions and possible peritoneal carcinomatosis concerning for metastatic disease of unknown primary s/p liver biopsy 10/25/18. CT imaging revealing pancreatic tail mass concerning for malignancy. Elevated CEA and markedly elevated CA19-9. Biopsy of liver mass and cytology from liver mass consistent with poorly differentiated carcinoma on 10/25/18, immunostains nonspecific but based on imaging correlation pancretaic adenocarcinoma is most likely. C/w optimizing pain control. Pain management on board. ? candidate for ? celiac plexus block ? por-a-cath placement
[2018-11-20] MEDS ORDERED: ZOLPIDEM TARTRATE 5 MG TABLET PO ONE (21:09)
[2018-11-20] MEDS: MELATONIN 5 MG TABLETS PO SCH (22:23)
[2018-11-21] MEDS: morphine SULFATE 4 MG/ML VIAL IVPUSH PRN ×7 (02:55→23:30)
[2018-11-21] MEDS ORDERED: METHADONE HCL 10 MG TABLET ONE (05:23)
[2018-11-21] MEDS ORDERED: METHADONE HCL 40 MG DISPERSABLE TABLET ONE (05:24)
[2018-11-21] MEDS: METHADONE 80 MG, METHADONE 10 MG PO SCH (06:03)
[2018-11-21] MEDS: SENNOSIDES 8.6MG TABLET (FP) PO SCH ×2 (10:35→21:44)
[2018-11-21] MEDS: THIAMINE HCL 100 MG TABLET (FP) PO SCH (10:35)
[2018-11-21] MEDS: FOLIC ACID 1 MG TABLET (FP) PO SCH (10:35)
[2018-11-21] MEDS: DOCUSATE SODIUM 100 MG CAPSULE (FP) PO PRN (10:35)
[2018-11-21] MEDS: POLYETHYLENE GLYCOL 3350 119 GM BTL PO SCH ×2 (10:36→21:44)
[2018-11-21] MEDS ORDERED: PT OWN MED DRAWER 7, Y5N ONE (10:36)
[2018-11-21] MEDS: ENOXAPARIN SQ SCH (10:37)
[2018-11-21] MEDS ORDERED: ZOLPIDEM TARTRATE 5 MG TABLET PO PRN (11:23)
--- NOTE | 2018-11-21 11:29 | PN ---
Physical Exam: SUBJECTIVE: Patient seen and examined at bedside. pt states he still is unable to sleep 2/2 pain. pt states he does not have an appetite. OBJECTIVE: Vital Signs Period Temp Pulse Resp BP Sys/Chacon Pulse Ox Last 24 Hr 98.7 F-98.9 F 88-98 20-20 108-111/61-76 95 GENERAL: The patient is awake, alert, and fully oriented, in no acute distress. LUNGS: Breath sounds equal, clear to auscultation bilaterally, no wheezes, no crackles, no accessory muscle use. HEART: Regular rate and rhythm, S1, S2 without murmur, rub or gallop. ABDOMEN: Soft, tender to palpation, nondistended, normoactive bowel sounds EXTREMITIES: 2+ pulses, warm, well-perfused, B/L LE edema. SKIN: Warm, dry, normal turgor, no rashes or lesions noted Current Medications Docusate Sodium (Colace -) 100 mg PO BID PRN PRN Reason: CONSTIPATION Last Admin: 11/21/18 10:35 Dose: 100 mg Fentanyl (Duragesic 75mcg Patch -) 1 patch TD Q72H [facility] Last Admin: 11/19/18 12:52 Dose: 1 patch Folic Acid (Folic Acid -) 1 mg PO DAILY [facility] Last Admin: 11/21/18 10:35 Dose: 1 mg Melatonin (Melatonin) 10 mg PO HS [facility] Last Admin: 11/20/18 22:23 Dose: 10 mg Methadone HCl 80 mg/ Methadone (HCl 10 mg) 90 mg PO DAILY@0600 [facility] Last Admin: 11/21/18 06:03 Dose: 90 mg Miscellaneous (Duragesic Patch Waste) 1 each TD PRN PRN PRN Reason: PAIN Morphine Sulfate (Morphine Sulfate) 4 mg IVPUSH Q3H PRN PRN Reason: PAIN LEVEL 7 - 10 Last Admin: 11/21/18 11:17 Dose: 4 mg Polyethylene Glycol (Miralax (For Daily Use) -) 17 gm PO BID [facility] Last Admin: 11/21/18 10:36 Dose: Not Given Senna (Senna -) 1 tab PO BID [facility] Last Admin: 11/21/18 10:35 Dose: 1 tab Thiamine HCl (Vitamin B1 -) 100 mg PO DAILY [facility] Last Admin: 11/21/18 10:35 Dose: 100 mg Zolpidem Tartrate (Ambien -) 10 mg PO HS PRN PRN Reason: INSOMNIA ASSESSMENT/PLAN: 53 yo M PMH of chronic tobacco use, chronic EtOH use, HCV s/p interferon tx, vertigo,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 acknowledges nausea. pt stating he is unable to sleep at night due to pain. Abdominal pain 2/2 inc. tumor burden vs malignant ascites -Abdominal U/S showed small ascites, CBD wnl -Dr. Xiong/ GI recs appreciated -Oncology recs appreciated as pt wishes to continue care here - pain mgmt recommends Fentanyl patch for pain -IR will take pt for nerve block on thursday , pt should not receive AC on Wednesday 11/22 -c/w home dose ambien Hyponatremia -2/2 overload -continue monitoring bmp Malnutrition - poor po intake, pt requested vanilla ensure Transaminitis- 2/2 liver mets and tumor burden. -continue to monitor DVT/PE- on full dose lovenox , order held for thursday due to nerve block Visit type - Emergency Visit Emergency Visit: No - New Patient This patient is new to me today: No - Critical Care Critical Care patient: No - Discharge Referral Referred to [facility] Med [facility]C.: No ATTENDING PHYSICIAN STATEMENT I saw and evaluated the patient. I reviewed the resident's note and discussed the case with the resident. I agree with the resident's findings and plan as documented. SUBJECTIVE: OBJECTIVE: ASSESSMENT AND PLAN:
--- NOTE | 2018-11-21 13:29 | PN ---
Teaching Attending Note Name of Resident: Amberly Hardin ATTENDING PHYSICIAN STATEMENT I saw and evaluated the patient. I reviewed the resident's note and discussed the case with the resident. I agree with the resident's findings and plan as documented. SUBJECTIVE:pain is not controlled. states pain is >10 that comes to an 8 when received pain medications. they only last about 40mins prior to pain escalating again. also states he is having difficulty sleeping due to pain. denies Cp, SOB , fever, chills, N/V. last BM 2 days ago OBJECTIVE: Last Vital Signs Temp Pulse Resp BP Pulse Ox 98.0 F 90 18 111/65 95 11/21/18 10:00 11/21/18 10:00 11/21/18 10:00 11/21/18 10:00 11/21/18 09:00 General NAD ABdomen soft diffuse tenderness ASSESSMENT AND PLAN: 53yo M with PMH COPD, and continuous polysubstance abuse and DVT/PE on full dose lovenox, recently diagnosed stage IV pancreatic cancer iwth diffuse mets that he has not started treatment for yet presented with progresively worsening abdominal pain 1. Intractable abdominal pain- likely due to tumor progression. plan for celiac nerve block on thursday by IR. seen by pain management. will increase morphine to 6mg. cont fentanyl patch. reassurance that block should improve tomorrow and then will start decreasing pain regimen. verbalized agreement. oneyda cont with current methadone for now and then can work on titrating off. Pain management, GI and oncology on board. 2. Mechanical fall- s/p tripping over his socks. no neurological deficits after event. Head ct negative for bleed. PT eval 3. Hyponatremia- due to volume overload. will monitor 4. malnutrition- as evident by body habitus and reports of poor po intake. nutritional eval. ensures 5. constipation- opiate induced. last BM 2 days ago. cont with softeners and laxatives. consider relistor if no BM in next 24H 6. Transaminitis- due to liver mets and tumor burden. trending down. 7. Hyperkalemia- treated in the ER. resolved 8. 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 will need lifelong treatment. hold thursday morning for procedure 9. Remote polysubstance abuse-on methadone. dose confirmed. no signs of withdrawal 10. Palliative care consult. poor overall prognosis.
[2018-11-21] MEDS ORDERED: PANTOPRAZOLE 40 MG TABLET (FP) PO ONE (14:00)
[2018-11-21] MEDS: GABAPENTIN 100 MG CAPSULE (FP) PO SCH (21:44)
[2018-11-21] MEDS ORDERED: FAMOTIDINE 20 MG/50 ML IVPB 20 MG/50 ML MG IVPB SCH (22:00)
[2018-11-22] MEDS: morphine SULFATE 4 MG/ML VIAL IVPUSH PRN ×6 (02:37→22:02)
[2018-11-22] MEDS ORDERED: METHADONE HCL 10 MG TABLET ONE (05:43)
[2018-11-22] MEDS ORDERED: METHADONE HCL 40 MG DISPERSABLE TABLET ONE (05:44)
[2018-11-22] MEDS: METHADONE 80 MG, METHADONE 10 MG PO SCH (05:47)
[2018-11-22 07:30] LABS: HEMATOCRIT 37.2 % (35.4-49); HEMOGLOBIN 12.3 GM/dL (11.7-16.9); MCH 27.2 pg (25.7-33.7); MCHC 33.1 g/dl (32.0-35.9); MEAN PLT VOLUME 8.1 fl (7.5-11.1); PLATELET COUNT 310 K/MM3 (134-434); RBC 4.54 M/mm3 (4.00-5.60); RDW 15.2 % (11.9-15.9); WHITE BLOOD COUNT 7.9 K/mm3 (4.0-10.0)
[2018-11-22 07:56] LABS: BLOOD UREA NITROGEN 5.4 mg/dL (7-18); CALCIUM 8.5 mg/dL (8.5-10.1); CREATININE 0.6 mg/dL (0.55-1.3); MAGNESIUM 2.2 mg/dL (1.8-2.4); PHOSPHOROUS 3.9 mg/dL (2.5-4.9); POTASSIUM 4.3 mmol/L (3.5-5.1)
[2018-11-22] MEDS: POLYETHYLENE GLYCOL 3350 119 GM BTL PO SCH ×2 (09:52→22:04)
[2018-11-22] MEDS: FOLIC ACID 1 MG TABLET (FP) PO SCH (09:53)
[2018-11-22] MEDS: THIAMINE HCL 100 MG TABLET (FP) PO SCH (09:53)
[2018-11-22] MEDS: fentaNYL 75mcg/hr PATCH.TD72 TD SCH ×2 (15:23→16:01)
[2018-11-22] MEDS: Methylnaltrexone Bromide 12 MG/0.6 ML KIT SQ SCH (15:24)
--- NOTE | 2018-11-22 15:57 | PN ---
Teaching Attending Note Name of Resident: Amberly Hardin ATTENDING PHYSICIAN STATEMENT I saw and evaluated the patient. I reviewed the resident's note and discussed the case with the resident. I agree with the resident's findings and plan as documented. SUBJECTIVE: continues to be in pain. minimal relief with morphine. eager for nerve block for it to work. denies CP, SOB, fever, chills, N/V. 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 Intractable abdominal pain- likely due to tumor progression. plan for celiac nerve block today by IR. seen by pain management. cont current managment with hopes that block works and can start decreasing pain treatment after that. if not will need to d/w pain management what else can be done. oneyda consider increasing pain patch. Pain management, GI and oncology on board. 2. Mechanical fall- s/p tripping over his socks. no neurological deficits after event. Head ct negative for bleed. PT eval 3. Hyponatremia- due to volume overload, poor appetite. will monitor 4. malnutrition- as evident by body habitus and reports of poor po intake. nutritional eval. ensures 5. constipation- opiate induced. will give relistor. cont with softeners and laxatives. 6. Transaminitis- due to liver mets and tumor burden. trending down. 7. Hyperkalemia- treated in the ER. resolved 8. 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 will need lifelong treatment. held for procedure. will d/w IR when we can res-start 9. Remote polysubstance abuse-on methadone. dose confirmed. no signs of withdrawal 10. Palliative care consult. poor overall prognosis.
--- NOTE | 2018-11-22 18:37 | PN ---
Progress Note (short form) - Note Progress Note: Patient seen and examined S/p celiac block with improvement in pain Last Vital Signs Temp Pulse Resp BP Pulse Ox 98.5 F 103 H 24 H 125/80 100 11/22/18 09:00 11/22/18 13:55 11/22/18 13:55 11/22/18 13:55 11/22/18 13:55 HEENT: BRANDIE, EOM Intact Cor: RSR, No murmurs, No gallops Lungs: decreased breath sounds bilaterally Abd: Soft, Normal bowel sounds, fullness RUQ and mid abdomen Ext:LE edema Skin:Stasis LE's CBC, BMP 11/22/18 06:39 11/22/18 06:39 Current Medications Generic Name Dose Route Start Last Admin Trade Name Freq PRN Reason Stop Dose Admin Docusate Sodium 100 mg 11/17/18 23:45 11/21/18 10:35 Colace - PO 100 mg BID PRN Administration CONSTIPATION Enoxaparin Sodium 100 mg/ 135 mg 11/23/18 10:00 Enoxaparin Sodium 35 mg SQ DAILY ALTA Fentanyl 1 patch 11/19/18 12:30 11/22/18 16:01 Duragesic 75mcg Patch - TD 1 patch Q72H ALTA Administration Folic Acid 1 mg 11/18/18 10:00 11/22/18 09:53 Folic Acid - PO Not Given DAILY ALTA Gabapentin 500 mg 11/21/18 22:00 11/21/18 21:44 Neurontin - PO 500 mg HS ALTA Administration Methadone HCl 80 mg/ Methadone 90 mg 11/19/18 06:00 11/22/18 05:47 HCl 10 mg PO 90 mg DAILY@0600 ALTA Administration Methylnaltrexone [place] 8 mg 11/22/18 14:30 11/22/18 15:24 Relistor - SQ 8 mg DAILY ALTA Administration Miscellaneous 1 each 11/19/18 12:16 11/22/18 16:01 Duragesic Patch Waste TD 1 each PRN PRN Administration PAIN Morphine Sulfate 6 mg 11/21/18 14:03 11/22/18 15:22 Morphine Sulfate IVPUSH 6 mg Q3H PRN Administration PAIN LEVEL 7 - 10 Polyethylene Glycol 17 gm 11/18/18 02:30 11/22/18 09:52 Miralax (For Daily Use) - PO Not Given BID ALTA Senna 2 tab 11/21/18 22:00 11/21/18 21:44 Senna - PO Not Given HS ALTA Thiamine HCl 100 mg 11/18/18 10:00 11/22/18 09:53 Vitamin B1 - PO Not Given DAILY ALTA Zolpidem Tartrate 10 mg 11/21/18 11:23 11/21/18 21:44 Ambien - PO 10 mg HS PRN Administration INSOMNIA Impression: Likely metastatic pancreatic ca S/P celiac block Pain management Patient wishes to be treated at [facility]. He should be provided with records and discs upon discharge.
--- NOTE | 2018-11-22 19:36 | PN ---
Physical Exam: SUBJECTIVE: Patient seen and examined at bedside. pt is stating his pain is worsening every day OBJECTIVE: Vital Signs Period Temp Pulse Resp BP Sys/Chacon Pulse Ox Last 24 Hr 97.3 F-98.5 F 99-108 18-24 122-136/67-84 96-100 GENERAL: The patient is awake, alert, and fully oriented, in no acute distress. HEAD: Normal with no signs of trauma. LUNGS: Breath sounds equal, clear to auscultation bilaterally, no wheezes, no crackles, no accessory muscle use. HEART: Regular rate and rhythm, S1, S2 without murmur, rub or gallop. ABDOMEN: Soft, tender to palpation, distended, normoactive bowel sounds EXTREMITIES: 2+ pulses, warm, well-perfused, no edema. NEUROLOGICAL: Cranial nerves II through XII grossly intact. Normal speech, gait not observed. PSYCH: Normal mood, normal affect. SKIN: Warm, dry, normal turgor, no rashes or lesions noted Laboratory Results - last 24 hr 11/19/18 11/19/18 11/20/18 16:12 23:01 20:42 WBC RBC Hgb Hct MCV MCH MCHC RDW Plt Count MPV Sodium Potassium Chloride Carbon Dioxide Anion Gap BUN Creatinine Est GFR (CKD-EPI)AfAm Est GFR (CKD-EPI)NonAf POC Glucometer 108 142 124 Random Glucose Calcium Phosphorus Magnesium 11/22/18 11/22/18 06:39 06:39 WBC 7.9 RBC 4.54 Hgb 12.3 Hct 37.2 MCV 82.0 MCH 27.2 MCHC 33.1 RDW 15.2 Plt Count 310 D MPV 8.1 Sodium 130 L Potassium 4.3 Chloride 95 L Carbon Dioxide 29 Anion Gap 6 L BUN 5.4 L Creatinine 0.6 Est GFR (CKD-EPI)AfAm 132.11 Est GFR (CKD-EPI)NonAf 113.99 POC Glucometer Random Glucose 102 Calcium 8.5 Phosphorus 3.9 Magnesium 2.2 Current Medications Docusate Sodium (Colace -) 100 mg PO BID PRN PRN Reason: CONSTIPATION Last Admin: 11/21/18 10:35 Dose: 100 mg Enoxaparin Sodium 100 mg/ (Enoxaparin Sodium 35 mg) 135 mg SQ DAILY ALTA Fentanyl (Duragesic 75mcg Patch -) 1 patch TD Q72H ALTA Last Admin: 11/22/18 16:01 Dose: 1 patch Folic Acid (Folic Acid -) 1 mg PO DAILY [facility] Last Admin: 11/22/18 09:53 Dose: Not Given Gabapentin (Neurontin -) 500 mg PO HS [facility] Last Admin: 11/21/18 21:44 Dose: 500 mg Methadone HCl 80 mg/ Methadone (HCl 10 mg) 90 mg PO DAILY@0600 [facility] Last Admin: 11/22/18 05:47 Dose: 90 mg Methylnaltrexone [place] (Relistor -) 8 mg SQ DAILY [facility] Last Admin: 11/22/18 15:24 Dose: 8 mg Miscellaneous (Duragesic Patch Waste) 1 each TD PRN PRN PRN Reason: PAIN Last Admin: 11/22/18 16:01 Dose: 1 each Morphine Sulfate (Morphine Sulfate) 6 mg IVPUSH Q3H PRN PRN Reason: PAIN LEVEL 7 - 10 Last Admin: 11/22/18 18:47 Dose: 6 mg Polyethylene Glycol (Miralax (For Daily Use) -) 17 gm PO BID [facility] Last Admin: 11/22/18 09:52 Dose: Not Given Senna (Senna -) 2 tab PO [facility] Last Admin: 11/21/18 21:44 Dose: Not Given Thiamine HCl (Vitamin B1 -) 100 mg PO DAILY [facility] Last Admin: 11/22/18 09:53 Dose: Not Given Zolpidem Tartrate (Ambien -) 10 mg PO HS PRN PRN Reason: INSOMNIA Last Admin: 11/21/18 21:44 Dose: 10 mg ASSESSMENT/PLAN: 53 yo M PMH of chronic tobacco use, chronic EtOH use, HCV s/p interferon tx, vertigo,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 acknowledges nausea. pt stating he is unable to sleep at night due to pain. Abdominal pain 2/2 inc. tumor burden vs malignant ascites -Abdominal U/S showed small ascites, CBD wnl -Dr. Xiong/ GI recs appreciated -Oncology recs appreciated as pt wishes to continue care here - pain mgmt recommends Fentanyl patch for pain -s/p nerve block today , AC is held as per IR recs. hopes of decreasing morphine assuming positive outcome from nerve block -c/w home dose ambien Mechanical Fall -pt tripped over his sock -CT head negative Hyponatremia -2/2 overload -continue monitoring bmp Malnutrition - poor po intake, pt requested vanilla ensure Transaminitis- 2/2 liver mets and tumor burden. -continue to monitor Constipation 2/2 opiate use -given relistor. -c/w softeners and laxatives. DVT/PE- on full dose lovenox , order held due to nerve block Visit type - Emergency Visit Emergency Visit: No - New Patient This patient is new to me today: No - Critical Care Critical Care patient: No - Discharge Referral Referred to [facility] No ATTENDING PHYSICIAN STATEMENT I saw and evaluated the patient. I reviewed the resident's note and discussed the case with the resident. I agree with the resident's findings and plan as documented. SUBJECTIVE: OBJECTIVE: ASSESSMENT AND PLAN:
[2018-11-22] MEDS: GABAPENTIN 100 MG CAPSULE (FP) PO SCH (22:01)
[2018-11-22] MEDS: ZOLPIDEM TARTRATE 5 MG TABLET PO PRN (22:03)
[2018-11-22] MEDS: SENNOSIDES 8.6MG TABLET (FP) PO SCH (22:03)
[2018-11-23] MEDS: morphine SULFATE 4 MG/ML VIAL IVPUSH PRN ×7 (01:06→21:10)
[2018-11-23] MEDS ORDERED: METHADONE HCL 40 MG DISPERSABLE TABLET ONE (06:06)
[2018-11-23] MEDS ORDERED: METHADONE HCL 10 MG TABLET ONE (06:06)
[2018-11-23] MEDS: METHADONE 80 MG, METHADONE 10 MG PO SCH (06:19)
[2018-11-23 07:17] LABS: MCH 27.2 pg (25.7-33.7); MCHC 33.3 g/dl (32.0-35.9); MEAN CELL VOLUME 81.8 fl (80-96); MEAN PLT VOLUME 8.2 fl (7.5-11.1); RDW 15.2 % (11.9-15.9); WHITE BLOOD COUNT 8.7 K/mm3 (4.0-10.0)
[2018-11-23 07:42] LABS: ALBUMIN 2.8 g/dl (3.4-5.0); CALCIUM 8.5 mg/dL (8.5-10.1); CREATININE 0.6 mg/dL (0.55-1.3); MAGNESIUM 2.2 mg/dL (1.8-2.4); POTASSIUM 4.5 mmol/L (3.5-5.1); TOT PROT 7.2 g/dl (6.4-8.2)
[2018-11-23 08:19] LABS: PLATELET COUNT 283 K/MM3 (134-434)
[2018-11-23] MEDS ORDERED: ENOXAPARIN NA (PORCINE) 120 MG/0.8 ML DISP.SYRIN SQ SCH (10:00)
[2018-11-23] MEDS ORDERED: PT OWN MED DRAWER 7, Y5N ONE (11:39)
[2018-11-23] MEDS: FOLIC ACID 1 MG TABLET (FP) PO SCH ×2 (11:45→11:54)
[2018-11-23] MEDS: POLYETHYLENE GLYCOL 3350 119 GM BTL PO SCH ×2 (11:55→21:19)
[2018-11-23] MEDS: Methylnaltrexone Bromide 12 MG/0.6 ML KIT SQ SCH (11:55)
[2018-11-23] MEDS: THIAMINE HCL 100 MG TABLET (FP) PO SCH (12:03)
[2018-11-23] MEDS ORDERED: INSULIN (NOVOLOG) ASPART 100 UNITS/ML 10ML VIAL ONE (12:51)
--- NOTE | 2018-11-23 14:34 | PN ---
Teaching Attending Note Name of Resident: Amberly Hardin ATTENDING PHYSICIAN STATEMENT I saw and evaluated the patient. I reviewed the resident's note and discussed the case with the resident. I agree with the resident's findings and plan as documented. SUBJECTIVE: Still complains of pain - no nausea/vomiting. OBJECTIVE: Afebrile, Hemodynamically Last Vital Signs Temp Pulse Resp BP Pulse Ox 98.6 F 113 H 18 119/70 95 11/23/18 08:43 11/23/18 08:43 11/23/18 08:43 11/23/18 08:43 11/22/18 21:00 HEENT - Atraumatic, Normocephalic. Heart - S1, S2, RRR Lungs - clear to auscultation Abdomen - soft, generalized tenderness. Bowel Sounds normal. Extremities - venous stasis skin changes, edema+ Laboratory Results - last 24 hr 11/23/18 11/23/18 06:16 06:16 WBC 8.7 RBC 4.40 Hgb 12.0 Hct 36.0 MCV 81.8 MCH 27.2 MCHC 33.3 RDW 15.2 Plt Count 283 MPV 8.2 Sodium 131 L Potassium 4.5 Chloride 94 L Carbon Dioxide 27 Anion Gap 10 BUN 8.0 Creatinine 0.6 Est GFR (CKD-EPI)AfAm 132.11 Est GFR (CKD-EPI)NonAf 113.99 Random Glucose 106 Calcium 8.5 Phosphorus 4.0 Magnesium 2.2 Total Bilirubin 1.0 AST 74 H ALT 54 Alkaline Phosphatase 765 H Total Protein 7.2 Albumin 2.8 L Current Medications Generic Name Dose Route Start Last Admin Trade Name Freq PRN Reason Stop Dose Admin Docusate Sodium 100 mg 11/17/18 23:45 11/21/18 10:35 Colace - PO 100 mg BID PRN Administration CONSTIPATION Enoxaparin Sodium 100 mg/ 135 mg 11/23/18 10:00 Enoxaparin Sodium 35 mg SQ DAILY ALTA Fentanyl 1 patch 11/19/18 12:30 11/22/18 16:01 Duragesic 75mcg Patch - TD 1 patch Q72H ALTA Administration Folic Acid 1 mg 11/18/18 10:00 11/23/18 11:54 Folic Acid - PO 1 mg DAILY ALTA Administration Gabapentin 500 mg 11/21/18 22:00 11/22/18 22:01 Neurontin - PO 500 mg HS ALTA Administration Methadone HCl 80 mg/ Methadone 90 mg 11/19/18 06:00 11/23/18 06:19 HCl 10 mg PO 90 mg DAILY@0600 ALTA Administration Methylnaltrexone [place] 8 mg 11/22/18 14:30 11/23/18 11:55 Relistor - SQ 8 mg DAILY ALTA Administration Miscellaneous 1 each 11/19/18 12:16 11/22/18 16:01 Duragesic Patch Waste TD 1 each PRN PRN Administration PAIN Morphine Sulfate 6 mg 11/22/18 21:11 11/23/18 11:51 Morphine Sulfate IVPUSH 6 mg Q3H PRN Administration PAIN LEVEL 7 - 10 Polyethylene Glycol 17 gm 11/18/18 02:30 11/23/18 11:55 Miralax (For Daily Use) - PO Not Given BID ALTA Senna 2 tab 11/21/18 22:00 11/22/18 22:03 Senna - PO Not Given HS ALTA Thiamine HCl 100 mg 11/18/18 10:00 11/23/18 12:03 Vitamin B1 - PO 100 mg DAILY ALTA Administration Zolpidem Tartrate 10 mg 11/22/18 21:11 11/22/18 22:03 Ambien - PO 10 mg HS PRN Administration INSOMNIA Home Medications Medication Instructions Recorded Atorvastatin Ca [Lipitor] 80 mg PO HS 10/21/18 Folic Acid - 1 mg PO DAILY #30 tablet 10/27/18 Mag Hydrox/Al Hydrox/Simeth 30 ml PO Q6HPO PRN ml 10/27/18 [MAALOX *SUSPENSION* -] Methadone [Dolophine -] 80 mg PO DAILY@0600 tablet MDD 80 10/27/18 Thiamine HCl [Vitamin B1 -] 100 mg PO DAILY tablet 10/27/18 Enoxaparin [Lovenox -] 135 mg SQ DAILY 14 Days disp.syrin 10/30/18 Lactulose 20 gm PO TID 14 Days solution 10/31/18 Pantoprazole Sodium [Protonix -] 20 mg PO DAILY #14 tablet.ec 10/31/18 Neurontin 500 mg HS 11/19/18 ASSESSMENT AND PLAN: 53 year old male with history of COPD, POlysubstance Abuse, DVT/PE on Lovenox, recently diagnosed Stage IV Pancreatic Ca with diffuse metastatic disease, admitted with intractable pain. 1. Intractable abdominal pain secondary to Metastatic Pancreatic Ca s/p Celiac Plexus Block Still requiring IV Morphine q3h in addition to Fentayl patch Pain management for recommendations for oral opiate regimen. Aggressive bowel regimen for constipation due to chronic opiate use. Relistor added to Colace/Senna/Miralax. Patient wants to follow up at [facility] for treatment plan for his Pancreatic Ca. 2. Polysubstance Abuse - on Methadone, Thiamine, Folic Acid. 3. Hx DVT/PE - on Lovenox SQ. 4. Elevated Transaminases - likely sec to Liver mets. Statin held.
[2018-11-23] MEDS: ENOXAPARIN SQ SCH (14:59)
--- NOTE | 2018-11-23 17:23 | DS ---
Physical Exam: SUBJECTIVE: Patient seen and examined at bedside. pt states the pain improved for a few hours but returned as a very sharp pain this am. Pt states he is going to follow oncology at [facility] in [place]. pt states he had BM last night OBJECTIVE: Vital Signs Period Temp Pulse Resp BP Sys/Chacon Pulse Ox Last 24 Hr 97.8 F-98.6 F 97-113 18-20 118-128/70-87 95 PHYSICAL EXAM GENERAL: The patient is awake, alert, and fully oriented, in no acute distress. LUNGS: Breath sounds equal, clear to auscultation bilaterally, no wheezes, no crackles, no accessory muscle use. HEART: Regular rate and rhythm, S1, S2 without murmur, rub or gallop. ABDOMEN: Soft, tender to palpation, mildly distended, normoactive bowel sounds EXTREMITIES: 2+ pulses, warm, well-perfused, B/L edema. SKIN: Warm, dry, normal turgor, no rashes or lesions noted. LABS Laboratory Results - last 24 hr 11/23/18 11/23/18 06:16 06:16 WBC 8.7 RBC 4.40 Hgb 12.0 Hct 36.0 MCV 81.8 MCH 27.2 MCHC 33.3 RDW 15.2 Plt Count 283 MPV 8.2 Sodium 131 L Potassium 4.5 Chloride 94 L Carbon Dioxide 27 Anion Gap 10 BUN 8.0 Creatinine 0.6 Est GFR (CKD-EPI)AfAm 132.11 Est GFR (CKD-EPI)NonAf 113.99 Random Glucose 106 Calcium 8.5 Phosphorus 4.0 Magnesium 2.2 Total Bilirubin 1.0 AST 74 H ALT 54 Alkaline Phosphatase 765 H Total Protein 7.2 Albumin 2.8 L HOSPITAL COURSE: Date of Admission:11/17/18 53 yo M PMH of chronic tobacco use, chronic EtOH use, HCV s/p interferon tx, vertigo,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 the pt acknowledges nausea and states he is unable to sleep at night due to pain. The pt had an abdominal u/s showed small ascites, CBD wnl. Pt was followed by GI and Oncology. The pain is most likely 2/2 increased tumor burden. The pt was seen by pain management who recommends fentanyl 75 patch every 3 days. pain management also recommended iv morphine for breakthrough pain. Pain management agrees to follow pt as outpt to further determine his pain management. Pt had nerve block on 11/22. Pt reports minimal improvement. While in the hospital, the pt had a mechanical fall after he took ambien( given to him from his ) . Pt states he tripped bc he tripped over his socks. the workup was performed and CT head was negative. The pt reported poor po intake and requested ensure which he can better tolerate. Pt liver enzymes were elevated most likely due to increased tumor burden. For the patient 's constipation he was given relistor which helped the patient. The pt should continue his home medications and should continue his lovenox. The pt should follow up with his pcp, his oncologist to mange his healthcare and should follow up with pain management tomorrow regarding out pt pain management. Date of Discharge: 11/23/18 Minutes to complete discharge: 36 Discharge Summary Reason For Visit: MALIGNANT NEOPLASM OF PANCREASE Current Active Problems Abnormal liver function tests (Acute) Metastases to the liver (Acute) Pancreatic cancer (Acute) Condition: Unchanged/Unknown - Instructions Diet, Activity, Other Instructions: You were admitted to the hospital with pain in your abdomen. While you were in the hospital you were treated with a nerve block and with a fentanyl patch for pain. You may continue to use the Fentanyl patch every 72 hours. Please continue to take your home medications as prescribed. You should follow up with your primary care physician in 1 week to further manage your health. You should follow up with your oncologist at [facility] to continue your management for your pancreatic cancer. You can follow up with Dr. Simental, the automotive painter, tomorrow. Please call his office tomorrow, the office number is [phone]. Please return to the ER if you have any signs or symptoms of chest pain, shortness of breath, uncontrollable fever, chills, nausea, vomiting, numbness, tingling, or weakness in any part of your body, changes in vision, or slurred speech. Please return to the ER if symptoms persist, worsen, or new symptoms arise. Disposition: HOME - Home Medications Comprehensive Discharge Medication List: Ambulatory Orders Folic Acid - 1 mg PO DAILY #30 tablet 10/27/18 Mag Hydrox/Al Hydrox/Simeth [MAALOX *SUSPENSION* -] 30 ml PO Q6HPO PRN ml 10/27 Methadone [Dolophine -] 80 mg PO DAILY@0600 tablet MDD 80 10/27/18 Thiamine HCl [Vitamin B1 -] 100 mg PO DAILY tablet 10/27/18 Enoxaparin [Lovenox -] 135 mg SQ DAILY 14 Days disp.syrin 10/30/18 Lactulose 20 gm PO TID 14 Days solution 10/31/18 Pantoprazole Sodium [Protonix -] 20 mg PO DAILY #14 tablet.ec 10/31/18 Neurontin 500 mg HS 11/19/18 FENTANYL 75mcg PATCH [DURAGESIC 75mcg PATCH -] 1 patch TD Q72H 3 Days #1 patch.td72 MDD 1 patch 11/23/18 This patient is new to me today: No Emergency Visit: No Critical Care patient: No - Discharge Referral Referred to [facility] No ATTENDING PHYSICIAN STATEMENT I saw and evaluated the patient. I reviewed the resident's note and discussed the case with the resident. I agree with the resident's findings and plan as documented. SUBJECTIVE: OBJECTIVE: ASSESSMENT AND PLAN:
--- NOTE | 2018-11-23 18:47 | PN ---
Progress Note (short form) - Note Progress Note: Patient seen Concerned about pain management Discussion about hospice vs pursuing active treatment. Not yet ready for hospice. Wants to speak with oncologist at [facility].
[2018-11-23] MEDS: ZOLPIDEM TARTRATE 5 MG TABLET PO PRN (21:18)
[2018-11-23] MEDS: GABAPENTIN 100 MG CAPSULE (FP) PO SCH (21:19)
[2018-11-23] MEDS: SENNOSIDES 8.6MG TABLET (FP) PO SCH (21:20)
--- NOTE | 2018-11-23 23:43 | FALL ---
Fall Exam - Event Witnessed fall: No Location of Fall: Patient Room Fall from: While ambulating (Patient fell onto knees while ambulating with walker. Believes he slipped on a piece of paper on the floor. Landed on his right knee. Denies any loss of consciousness, any dizziness, or weakness preceding or during fall.) - Pre-Fall Mental Status: Cooperative Current Medications: Current Medications Generic Name Dose Route Start Last Admin Trade Name Freq PRN Reason Stop Dose Admin Docusate Sodium 100 mg 11/17/18 23:45 11/21/18 10:35 Colace - PO 100 mg BID PRN Administration CONSTIPATION Enoxaparin Sodium 100 mg/ 135 mg 11/23/18 10:00 11/23/18 14:59 Enoxaparin Sodium 35 mg SQ 135 mg DAILY ALTA Administration Fentanyl 1 patch 11/19/18 12:30 11/22/18 16:01 Duragesic 75mcg Patch - TD 1 patch Q72H ALTA Administration Folic Acid 1 mg 11/18/18 10:00 11/23/18 11:54 Folic Acid - PO 1 mg DAILY ALTA Administration Gabapentin 500 mg 11/21/18 22:00 11/23/18 21:19 Neurontin - PO 500 mg HS ALTA Administration Methadone HCl 80 mg/ Methadone 90 mg 11/19/18 06:00 11/23/18 06:19 HCl 10 mg PO 90 mg DAILY@0600 ALTA Administration Methylnaltrexone [place] 8 mg 11/22/18 14:30 11/23/18 11:55 Relistor - SQ 8 mg DAILY ALTA Administration Miscellaneous 1 each 11/19/18 12:16 11/22/18 16:01 Duragesic Patch Waste TD 1 each PRN PRN Administration PAIN Morphine Sulfate 6 mg 11/22/18 21:11 11/23/18 21:10 Morphine Sulfate IVPUSH 6 mg Q3H PRN Administration PAIN LEVEL 7 - 10 Polyethylene Glycol 17 gm 11/18/18 02:30 11/23/18 21:19 Miralax (For Daily Use) - PO Not Given BID ALTA Senna 2 tab 11/21/18 22:00 11/23/18 21:20 Senna - PO Not Given HS ALTA Thiamine HCl 100 mg 11/18/18 10:00 11/23/18 12:03 Vitamin B1 - PO 100 mg DAILY ALTA Administration Zolpidem Tartrate 10 mg 11/22/18 21:11 11/23/18 21:18 Ambien - PO 10 mg HS PRN Administration INSOMNIA - Post-Fall Patient Outcome: No Injury Exam Findings: No new abrasions, cuts, or bruises on extremities or head and neck region. No feelings of weakness or di Cardiac exam was normal: S1 S2 present. Lungs clear to auscultation bilaterally. Neuro exam was normal. Patient has 5/5 strength in Upper and Lower Extremities. Treatment: None Vital Signs: Vital Signs Temperature 98.2 F 11/23/18 23:22 Pulse Rate 98 H 11/23/18 23:22 Respiratory Rate 20 11/23/18 23:22 Blood Pressure 136/66 11/23/18 23:22 O2 Sat by Pulse Oximetry (%) 95 11/22/18 21:00 LOC Post-Fall: Awake, Alert, Oriented Identify factors for HIGH RISK for Head Injury: Pt on anticoagulant
[2018-11-24] MEDS: morphine SULFATE 4 MG/ML VIAL IVPUSH PRN (00:14)
[2018-11-24] MEDS: MORPHINE SULFATE 2 MG/ML VIAL IVPUSH PRN ×2 (03:30→08:03)
[2018-11-24] MEDS ORDERED: METHADONE HCL 10 MG TABLET ONE (05:10)
[2018-11-24] MEDS ORDERED: METHADONE HCL 40 MG DISPERSABLE TABLET ONE (05:11)
[2018-11-24] MEDS: METHADONE 80 MG, METHADONE 10 MG PO SCH (06:38)
--- NOTE | 2018-11-24 07:04 | FALL ---
Fall Exam - Event Witnessed fall: No Location of Fall: [facility] on 7th floor Fall from: While ambulating - Pre-Fall Mental Status: Alert Current Medications: Current Medications Generic Name Dose Route Start Last Admin Trade Name Freq PRN Reason Stop Dose Admin Docusate Sodium 100 mg 11/17/18 23:45 11/21/18 10:35 Colace - PO 100 mg BID PRN Administration CONSTIPATION Enoxaparin Sodium 100 mg/ 135 mg 11/23/18 10:00 11/23/18 14:59 Enoxaparin Sodium 35 mg SQ 135 mg DAILY ALTA Administration Fentanyl 1 patch 11/19/18 12:30 11/22/18 16:01 Duragesic 75mcg Patch - TD 1 patch Q72H ALTA Administration Folic Acid 1 mg 11/18/18 10:00 11/23/18 11:54 Folic Acid - PO 1 mg DAILY ALTA Administration Gabapentin 500 mg 11/21/18 22:00 11/23/18 21:19 Neurontin - PO 500 mg HS ALTA Administration Methadone HCl 80 mg/ Methadone 90 mg 11/19/18 06:00 11/24/18 06:38 HCl 10 mg PO 90 mg DAILY@0600 ALTA Administration Methylnaltrexone [place] 8 mg 11/22/18 14:30 11/23/18 11:55 Relistor - SQ 8 mg DAILY ALTA Administration Miscellaneous 1 each 11/19/18 12:16 11/22/18 16:01 Duragesic Patch Waste TD 1 each PRN PRN Administration PAIN Morphine Sulfate 6 mg 11/24/18 03:14 11/24/18 03:30 Morphine Sulfate IVPUSH 6 mg Q3H PRN Administration PAIN LEVEL 7 - 10 Polyethylene Glycol 17 gm 11/18/18 02:30 11/23/18 21:19 Miralax (For Daily Use) - PO Not Given BID ALTA Senna 2 tab 11/21/18 22:00 11/23/18 21:20 Senna - PO Not Given HS ALTA Thiamine HCl 100 mg 11/18/18 10:00 11/23/18 12:03 Vitamin B1 - PO 100 mg DAILY ALTA Administration Zolpidem Tartrate 10 mg 11/22/18 21:11 11/23/18 21:18 Ambien - PO 10 mg HS PRN Administration INSOMNIA - Post-Fall Patient Outcome: No Injury Exam Findings: Patient had unwitnessed fall at 5:50 AM. Patient denies any falls initially, but later said his walker moved away from him while he tried to it on it and then he ended up on the floor. Denies any bruising on extremities and pain. Patient reports no loss of conciousness, no dizziness. Neuro exam grossly normal. 5/5 strength in B/L upper and lower extremities. Treatment: None Vital Signs: Vital Signs Temperature 98.1 F 11/24/18 03:39 Pulse Rate 97 H 11/24/18 03:39 Respiratory Rate 20 11/24/18 03:39 Blood Pressure 118/70 11/24/18 03:39 O2 Sat by Pulse Oximetry (%) 95 11/23/18 21:00 LOC Post-Fall: Awake, Alert Identify factors for HIGH RISK for Head Injury: Pt on anticoagulant (Lovenox SQ 135)
[2018-11-24] MEDS ORDERED: oxyCODONE HCL 5 MG TABLET PO ONE (10:07)
[2018-11-24] MEDS: FOLIC ACID 1 MG TABLET (FP) PO SCH (10:22)
[2018-11-24] MEDS: POLYETHYLENE GLYCOL 3350 119 GM BTL PO SCH (10:22)
[2018-11-24] MEDS: Methylnaltrexone Bromide 12 MG/0.6 ML KIT SQ SCH (10:22)
[2018-11-24] MEDS: THIAMINE HCL 100 MG TABLET (FP) PO SCH (10:22)
[2018-11-24] MEDS: ENOXAPARIN SQ SCH (10:24)
[2018-11-24 11:09] VITALS: BP 129/76; PULSE 106; TEMP 98.2
--- NOTE | 2018-11-24 18:19 | PN ---
Teaching Attending Note Name of Resident: Amberly Hardin ATTENDING PHYSICIAN STATEMENT I saw and evaluated the patient. I reviewed the resident's note and discussed the case with the resident. I agree with the resident's findings and plan as documented. SUBJECTIVE: OBJECTIVE: Last Vital Signs Temp Pulse Resp BP Pulse Ox 98.2 F 106 H 20 129/76 95 11/24/18 10:00 11/24/18 10:00 11/24/18 10:00 11/24/18 10:00 11/24/18 09:00 Laboratory Tests 11/17/18 11/17/18 11/17/18 15:24 15:24 17:20 WBC 8.9 RBC 4.77 Hgb 12.7 Hct 39.6 MCV 83.0 MCH 26.6 MCHC 32.0 RDW 15.5 Plt Count 281 MPV 8.5 Absolute Neuts (auto) 5.7 Neutrophils % 64.4 Lymphocytes % 21.5 D Monocytes % 12.3 H Eosinophils % 1.1 Basophils % 0.7 Nucleated RBC % 0 PT with INR INR Sodium Cancelled 133 L Potassium Cancelled 5.8 H Chloride Cancelled 93 L Carbon Dioxide Cancelled 33 H Anion Gap Cancelled 7 L BUN Cancelled 7.9 Creatinine Cancelled 0.7 Est GFR (CKD-EPI)AfAm Cancelled 124.00 Est GFR (CKD-EPI)NonAf Cancelled 106.99 POC Glucometer Random Glucose Cancelled 87 Serum Osmolality Calcium Cancelled 9.1 Phosphorus Magnesium Total Bilirubin Cancelled 0.7 Direct Bilirubin AST Cancelled 102 H ALT Cancelled 68 H Alkaline Phosphatase Cancelled 674 H Total Protein Cancelled 8.0 Albumin Cancelled 3.4 Lipase Cancelled 114 Urine Osmolality Ur Random Creatinine Ur Random Sodium Urine Collection Time Urine Total Volume Urine Creatinine Ur Creatinine 24 Hour Stool Occult Blood 11/17/18 11/18/18 11/18/18 19:55 00:06 01:20 WBC RBC Hgb Hct MCV MCH MCHC RDW Plt Count MPV Absolute Neuts (auto) Neutrophils % Lymphocytes % Monocytes % Eosinophils % Basophils % Nucleated RBC % PT with INR INR Sodium 131 L Potassium 3.9 Chloride 95 L Carbon Dioxide 32 Anion Gap 4 L BUN 6.3 L Creatinine 0.7 Est GFR (CKD-EPI)AfAm 124.00 Est GFR (CKD-EPI)NonAf 106.99 POC Glucometer 85 Random Glucose 58 L Serum Osmolality Calcium 8.4 L Phosphorus Magnesium Total Bilirubin Direct Bilirubin AST ALT Alkaline Phosphatase Total Protein Albumin Lipase Urine Osmolality 636 Ur Random Creatinine Ur Random Sodium Urine Collection Time Urine Total Volume Urine Creatinine Ur Creatinine 24 Hour Stool Occult Blood 11/18/18 11/18/18 11/18/18 01:20 04:49 06:59 WBC RBC Hgb Hct MCV MCH MCHC RDW Plt Count MPV Absolute Neuts (auto) Neutrophils % Lymphocytes % Monocytes % Eosinophils % Basophils % Nucleated RBC % PT with INR INR Sodium Potassium Chloride Carbon Dioxide Anion Gap BUN Creatinine Est GFR (CKD-EPI)AfAm Est GFR (CKD-EPI)NonAf POC Glucometer 114 99 Random Glucose Serum Osmolality Calcium Phosphorus Magnesium Total Bilirubin Direct Bilirubin AST ALT Alkaline Phosphatase Total Protein Albumin Lipase Urine Osmolality Ur Random Creatinine 135.0 Ur Random Sodium 37 L Urine Collection Time Urine Total Volume Urine Creatinine Ur Creatinine 24 Hour Stool Occult Blood 11/18/18 11/18/18 11/18/18 07:56 08:55 08:55 WBC 7.8 RBC 4.59 Hgb 12.3 Hct 38.2 MCV 83.2 MCH 26.7 MCHC 32.1 RDW 15.3 Plt Count 237 MPV 8.2 Absolute Neuts (auto) 5.7 Neutrophils % 73.1 Lymphocytes % 15.8 D Monocytes % 9.9 Eosinophils % 0.6 Basophils % 0.6 Nucleated RBC % 0 PT with INR INR Sodium 132 L Potassium 4.3 Chloride 96 L Carbon Dioxide 30 Anion Gap 5 L BUN 6.4 L Creatinine 0.6 Est GFR (CKD-EPI)AfAm 132.11 Est GFR (CKD-EPI)NonAf 113.99 POC Glucometer Random Glucose 93 Serum Osmolality 274 L Calcium 8.7 Phosphorus Magnesium Total Bilirubin 0.8 Direct Bilirubin AST 101 H ALT 65 H Alkaline Phosphatase 618 H Total Protein 7.0 Albumin 3.1 L Lipase Urine Osmolality Ur Random Creatinine Ur Random Sodium Urine Collection Time Urine Total Volume Urine Creatinine Ur Creatinine 24 Hour Stool Occult Blood Negative 11/18/18 11/18/18 11/19/18 11:57 22:21 01:30 WBC RBC Hgb Hct MCV MCH MCHC RDW Plt Count MPV Absolute Neuts (auto) Neutrophils % Lymphocytes % Monocytes % Eosinophils % Basophils % Nucleated RBC % PT with INR INR Sodium Potassium Chloride Carbon Dioxide Anion Gap BUN Creatinine Est GFR (CKD-EPI)AfAm Est GFR (CKD-EPI)NonAf POC Glucometer 117 104 Random Glucose Serum Osmolality Calcium Phosphorus Magnesium Total Bilirubin Direct Bilirubin AST ALT Alkaline Phosphatase Total Protein Albumin Lipase Urine Osmolality Ur Random Creatinine Ur Random Sodium Urine Collection Time 24 Urine Total Volume 1125 Urine Creatinine 72.1 Ur Creatinine 24 Hour 811.1 Stool Occult Blood 11/19/18 11/19/18 11/19/18 03:08 05:54 06:50 WBC RBC Hgb Hct MCV MCH MCHC RDW Plt Count MPV Absolute Neuts (auto) Neutrophils % Lymphocytes % Monocytes % Eosinophils % Basophils % Nucleated RBC % PT with INR 18.30 H INR 1.54 H Sodium Potassium Chloride Carbon Dioxide Anion Gap BUN Creatinine Est GFR (CKD-EPI)AfAm Est GFR (CKD-EPI)NonAf POC Glucometer 134 114 Random Glucose Serum Osmolality Calcium Phosphorus Magnesium Total Bilirubin Direct Bilirubin AST ALT Alkaline Phosphatase Total Protein Albumin Lipase Urine Osmolality Ur Random Creatinine Ur Random Sodium Urine Collection Time Urine Total Volume Urine Creatinine Ur Creatinine 24 Hour Stool Occult Blood 11/19/18 11/19/18 11/19/18 06:50 06:50 16:12 WBC 8.7 RBC 4.35 Hgb 11.6 L Hct 35.5 MCV 81.8 MCH 26.7 MCHC 32.6 RDW 15.5 Plt Count 242 MPV 8.1 Absolute Neuts (auto) Neutrophils % Lymphocytes % Monocytes % Eosinophils % Basophils % Nucleated RBC % PT with INR INR Sodium 132 L Potassium 4.2 Chloride 96 L Carbon Dioxide 27 Anion Gap 8 BUN 7.0 Creatinine 0.5 L Est GFR (CKD-EPI)AfAm 142.39 Est GFR (CKD-EPI)NonAf 122.86 POC Glucometer 108 Random Glucose 113 H Serum Osmolality Calcium 8.2 L Phosphorus Magnesium Total Bilirubin Direct Bilirubin AST ALT Alkaline Phosphatase Total Protein Albumin Lipase Urine Osmolality Ur Random Creatinine Ur Random Sodium Urine Collection Time Urine Total Volume Urine Creatinine Ur Creatinine 24 Hour Stool Occult Blood 11/19/18 11/20/18 11/20/18 23:01 07:07 07:07 WBC 7.9 RBC 4.20 Hgb 11.3 L Hct 34.4 L MCV 81.9 MCH 27.0 MCHC 32.9 RDW 15.4 Plt Count 245 MPV 8.2 Absolute Neuts (auto) Neutrophils % Lymphocytes % Monocytes % Eosinophils % Basophils % Nucleated RBC % PT with INR INR Sodium 132 L Potassium 3.9 Chloride 96 L Carbon Dioxide 30 Anion Gap 5 L BUN 6.5 L Creatinine 0.6 Est GFR (CKD-EPI)AfAm 132.11 Est GFR (CKD-EPI)NonAf 113.99 POC Glucometer 142 Random Glucose 108 H Serum Osmolality Calcium 8.3 L Phosphorus 3.8 Magnesium 2.3 Total Bilirubin 0.7 Direct Bilirubin 0.5 H AST 93 H ALT 59 Alkaline Phosphatase 641 H Total Protein 6.2 L Albumin 2.6 L Lipase Urine Osmolality Ur Random Creatinine Ur Random Sodium Urine Collection Time Urine Total Volume Urine Creatinine Ur Creatinine 24 Hour Stool Occult Blood 11/20/18 11/22/18 11/22/18 20:42 06:39 06:39 WBC 7.9 RBC 4.54 Hgb 12.3 Hct 37.2 MCV 82.0 MCH 27.2 MCHC 33.1 RDW 15.2 Plt Count 310 D MPV 8.1 Absolute Neuts (auto) Neutrophils % Lymphocytes % Monocytes % Eosinophils % Basophils % Nucleated RBC % PT with INR INR Sodium 130 L Potassium 4.3 Chloride 95 L Carbon Dioxide 29 Anion Gap 6 L BUN 5.4 L Creatinine 0.6 Est GFR (CKD-EPI)AfAm 132.11 Est GFR (CKD-EPI)NonAf 113.99 POC Glucometer 124 Random Glucose 102 Serum Osmolality Calcium 8.5 Phosphorus 3.9 Magnesium 2.2 Total Bilirubin Direct Bilirubin AST ALT Alkaline Phosphatase Total Protein Albumin Lipase Urine Osmolality Ur Random Creatinine Ur Random Sodium Urine Collection Time Urine Total Volume Urine Creatinine Ur Creatinine 24 Hour Stool Occult Blood 11/23/18 11/23/18 06:16 06:16 WBC 8.7 RBC 4.40 Hgb 12.0 Hct 36.0 MCV 81.8 MCH 27.2 MCHC 33.3 RDW 15.2 Plt Count 283 MPV 8.2 Absolute Neuts (auto) Neutrophils % Lymphocytes % Monocytes % Eosinophils % Basophils % Nucleated RBC % PT with INR INR Sodium 131 L Potassium 4.5 Chloride 94 L Carbon Dioxide 27 Anion Gap 10 BUN 8.0 Creatinine 0.6 Est GFR (CKD-EPI)AfAm 132.11 Est GFR (CKD-EPI)NonAf 113.99 POC Glucometer Random Glucose 106 Serum Osmolality Calcium 8.5 Phosphorus 4.0 Magnesium 2.2 Total Bilirubin 1.0 Direct Bilirubin AST 74 H ALT 54 Alkaline Phosphatase 765 H Total Protein 7.2 Albumin 2.8 L Lipase Urine Osmolality Ur Random Creatinine Ur Random Sodium Urine Collection Time Urine Total Volume Urine Creatinine Ur Creatinine 24 Hour Stool Occult Blood Home Medications Medication Instructions Recorded Folic Acid - 1 mg PO DAILY #30 tablet 10/27/18 Mag Hydrox/Al Hydrox/Simeth 30 ml PO Q6HPO PRN ml 10/27/18 [MAALOX *SUSPENSION* -] Methadone [Dolophine -] 80 mg PO DAILY@0600 tablet MDD 80 10/27/18 Thiamine HCl [Vitamin B1 -] 100 mg PO DAILY tablet 10/27/18 Enoxaparin [Lovenox -] 135 mg SQ DAILY 14 Days disp.syrin 10/30/18 Lactulose 20 gm PO TID 14 Days solution 10/31/18 Pantoprazole Sodium [Protonix -] 20 mg PO DAILY #14 tablet.ec 10/31/18 Neurontin 500 mg HS 11/19/18 FENTANYL 75mcg PATCH [DURAGESIC 1 patch TD Q72H 3 Days #1 11/23/18 75mcg PATCH -] patch.td72 MDD 1 patch ASSESSMENT AND PLAN:
== END 2018-11-24 11:29 | disposition home or self-care (01) | DRG 281 ==
LOC: JER 12:32 → JERBED 22:00 → J7W 23:16
PROVIDERS: ADMIT Internal Medicine
PROC: 3E0T3BZ Introduction of Anesthetic Agent into Peripheral Nerves and Plexi, Percutaneous Approach (ICD-10-PCS; principal; 2018-11-22)
PROC: 3E0T33Z Introduction of Anti-inflammatory into Peripheral Nerves and Plexi, Percutaneous Approach (ICD-10-PCS; 2018-11-22)
DX: C25.2 Malignant neoplasm of tail of pancreas (principal); J90 Pleural effusion, not elsewhere classified; R18.0 Malignant ascites; E46 Unspecified protein-calorie malnutrition; C78.7 Secondary malignant neoplasm of liver and intrahepatic bile duct; C78.00 Secondary malignant neoplasm of unspecified lung; C78.89 Secondary malignant neoplasm of other digestive organs; C78.6 Secondary malignant neoplasm of retroperitoneum and peritoneum; E87.1 Hypo-osmolality and hyponatremia; E87.5 Hyperkalemia; E83.51 Hypocalcemia; Z86.718 Personal history of other venous thrombosis and embolism; Z86.711 Personal history of pulmonary embolism; F10.20 Alcohol dependence, uncomplicated; B19.20 Unspecified viral hepatitis C without hepatic coma; R74.0 Nonspecific elevation of levels of transaminase and lactic acid dehydrogenase [LDH]; F17.210 Nicotine dependence, cigarettes, uncomplicated; J44.9 Chronic obstructive pulmonary disease, unspecified; R94.5 Abnormal results of liver function studies; F11.10 Opioid abuse, uncomplicated
CPT/HCPCS: 36415; 64530; 70450-TC; 74177-TC; 76705-TC; 80048; 80053; 80076; 82272; 82565; 82575; 82962; 83690; 83735; 83930; 83935; 84100; 84300; 85025; 85027; 85610; 93005; 93010; 99283-25; J0131; J7030